=== PATIENT | female | born 1950 | race African-American/Black ===

== ENCOUNTER 2018-04-05 18:22 | Inpatient (IN) ==
[2018-04-05] MEDS ORDERED: ONDANSETRON 4 MG/2 ML VIAL IV ONE (19:47)
[2018-04-05] MEDS ORDERED: MORPHINE 4 MG/1 ML VIAL IV STA (19:47)
[2018-04-05] MEDS ORDERED: SODIUM CHLORIDE 0.9% 1,000 ML IV STA (19:47)
[2018-04-05] MEDS ORDERED: ONDANSETRON 4 MG/2 ML VIAL ONE (20:02)
[2018-04-05] MEDS ORDERED: MORPHINE 4 MG/1 ML VIAL ONE (20:02)
[2018-04-05 20:03] LABS: Basophils % 0.2 % (0.0-0.8); Eosinophils # 0.2 10*3/uL (0.0-0.87); Eosinophils % 0.9 % (0.00-10.9); Immature Granulocytes % 0.8 %; Immature Granulocytes Absolute 0.15 #; Lymphocytes # 3.4 10*3/uL (1.4-4.0); Lymphocytes % 18.7 % (21.3-54.2); Mean Corpuscular HGB Conc 32.7 GM/DL (32-36); Mean Corpuscular Hemoglobin 29 PG (27-34); Mean Platelet Volume 11.2 FL (9.6-12.0); Monocytes # 1.7 10*3/uL (0.11-0.8); Monocytes % 9.7 % (1.7-12.7); NRBC # 0.03 10*3/uL; Neutrophils # 12.5 10*3/uL (1.4-7.4); Neutrophils % 69.7 % (38.7-73.9); Platelet Count 415 T/CUMM (130-400); Red Blood Count 1.84 MC/CUMM (3.8-5.5); Red Cell Distribution Width 16.7 % (9.3-17.3); White Blood Count 17.9 T/CUMM (4-12)
[2018-04-05 20:11] LABS: Hemoglobin 5.3 GM/DL (12.0-16.0)
[2018-04-05 20:12] LABS: Hematocrit 16.2 VOL% (35.7-47.0)
[2018-04-05 20:20] LABS: Albumin 3.3 G/DL (3.4-5.0); Bilirubin,Total 0.5 MG/DL (0.2-1.0); Calcium 7.7 MG/DL (8.5-10.1); Osmolality,Calculated 307.4 MOS/KG (273-304); Potassium 4.3 MMOL/L (3.5-5.1); Total Protein 7.2 G/DL (6.4-8.3)
[2018-04-05] MEDS ORDERED: cefTRIAXone 1,000 MG in SODIUM CHLORIDE 0.9% 100 ML IV STA (20:25)
[2018-04-05] MEDS ORDERED: cefTRIAXone 1,000 MG VIAL ONE (20:42)
[2018-04-05 20:54] LABS: Apearance,Urine CLEAR (Clear); Bilirubin,Urine Negative (Negative); Blood, Urine Negative (Negative); Glucose,Urine (UA) Negative (Negative); Ketones,Urine Negative (Negative); Mucus,Urine Occasional /LPF (Occasional); Nitrite,Urine Negative (Negative); Protein,Urine Negative; RBC,Urine <1 /HPF (0-4); Squamous Epithelial Cell,Urine Occasional /HPF (0-10); Urine Color Straw (Yellow); Urine Specific Gravity 1.006 (1.001-1.035); Urine Urobilinogen < 2.0 EU/DL (0.2-1.0)
[2018-04-05] MEDS ORDERED: SODIUM CHLORIDE 0.9% 1,000 ML IV PRN (22:00)
[2018-04-05] MEDS ORDERED: ONDANSETRON 4 MG/2 ML VIAL IV PRN (22:08)
[2018-04-05] MEDS ORDERED: MORPHINE 4 MG/1 ML VIAL IV PRN (22:08)
[2018-04-05] MEDS ORDERED: PROMETHAZINE 25 MG TABLET PO PRN (22:40)
[2018-04-06] MEDS ORDERED: CYPROHEPTADINE 4 MG TABLET PO SCH (09:00)
[2018-04-06] MEDS: MULTIVITAMIN (CENTRUM) TABLET PO SCH (09:38)
[2018-04-06] MEDS: POTASSIUM CHLORIDE 8 MEQ CAPSULE PO SCH (09:38)
[2018-04-06] MEDS: FOLIC ACID 0.4 MG TABLET PO SCH (09:38)
[2018-04-06] MEDS: amLODIPine 5 MG TABLET PO SCH (09:39)
[2018-04-06] MEDS: THIAMINE 100 MG TABLET PO SCH (09:39)
[2018-04-06] MEDS: CYANOCOBALAMIN 500 MCG TABLET PO SCH (09:39)
[2018-04-06] MEDS: NEBIVOLOL 10 MG TABLET PO SCH (09:39)
[2018-04-06] MEDS: hydrALAZINE 10 MG TABLET PO SCH ×3 (09:39→22:01)
[2018-04-06] MEDS: FERROUS SULFATE 325 MG TABLET PO SCH (09:39)
[2018-04-06 13:54] LABS: Basophils % 0.3 % (0.0-0.8); Eosinophils # 0.2 10*3/uL (0.0-0.87); Eosinophils % 1.1 % (0.00-10.9); Hematocrit 28.4 VOL% (35.7-47.0); Hemoglobin 9.4 GM/DL (12.0-16.0); Immature Granulocytes % 0.6 %; Immature Granulocytes Absolute 0.09 #; Lymphocytes # 1.5 10*3/uL (1.4-4.0); Lymphocytes % 10.1 % (21.3-54.2); Mean Corpuscular HGB Conc 33.1 GM/DL (32-36); Mean Corpuscular Hemoglobin 29 PG (27-34); Mean Corpuscular Volume 87.9 FL (87-102); Mean Platelet Volume 11.7 FL (9.6-12.0); Monocytes # 1.7 10*3/uL (0.11-0.8); NRBC # 0.05 10*3/uL; Neutrophils # 11.7 10*3/uL (1.4-7.4); Neutrophils % 76.9 % (38.7-73.9); Platelet Count 319 T/CUMM (130-400); Red Blood Count 3.23 MC/CUMM (3.8-5.5); Red Cell Distribution Width 15.5 % (9.3-17.3); White Blood Count 15.2 T/CUMM (4-12)
[2018-04-06 14:12] LABS: Calcium 7.6 MG/DL (8.5-10.1); Potassium 4.2 MMOL/L (3.5-5.1)
[2018-04-06 15:07] LABS: Sedimentation Rate-Westergren 98 MM/HR (0-30)
[2018-04-06 17:30] LABS: % Iron Saturation 114.8 % (18-50); Ferritin 8614.7 ng/ml (8-252); Folate > 24.0 NG/ML (5.4-24.0); Vitamin B12 > 2000 PG/ML (211-911)
[2018-04-06] MEDS: MEPERIDINE 50 MG TABLET PO PRN (17:52)
[2018-04-06] MEDS: cefTRIAXone 1,000 MG in SYRINGE 1 EACH IV SCH (21:54)
[2018-04-07] MEDS: CYANOCOBALAMIN 500 MCG TABLET PO SCH (09:04)
[2018-04-07] MEDS: THIAMINE 100 MG TABLET PO SCH (09:05)
[2018-04-07] MEDS: amLODIPine 5 MG TABLET PO SCH (09:05)
[2018-04-07] MEDS: FOLIC ACID 0.4 MG TABLET PO SCH (09:05)
[2018-04-07] MEDS: FERROUS SULFATE 325 MG TABLET PO SCH (09:05)
[2018-04-07] MEDS: hydrALAZINE 10 MG TABLET PO SCH ×3 (09:05→21:42)
[2018-04-07] MEDS: MULTIVITAMIN (CENTRUM) TABLET PO SCH (09:05)
[2018-04-07] MEDS: NEBIVOLOL 10 MG TABLET PO SCH (09:05)
[2018-04-07] MEDS: POTASSIUM CHLORIDE 8 MEQ CAPSULE PO SCH (09:05)
[2018-04-07 11:28] LABS: Basophils % 0.3 % (0.0-0.8); Eosinophils # 0.2 10*3/uL (0.0-0.87); Hemoglobin 9.3 GM/DL (12.0-16.0); Immature Granulocytes % 0.9 %; Immature Granulocytes Absolute 0.13 #; Lymphocytes # 1.6 10*3/uL (1.4-4.0); Mean Corpuscular HGB Conc 33.2 GM/DL (32-36); Mean Corpuscular Hemoglobin 29 PG (27-34); Mean Corpuscular Volume 88.6 FL (87-102); Mean Platelet Volume 11.4 FL (9.6-12.0); Monocytes # 1.6 10*3/uL (0.11-0.8); NRBC # 0.04 10*3/uL; Neutrophils # 11.3 10*3/uL (1.4-7.4); Neutrophils % 75.8 % (38.7-73.9); Platelet Count 357 T/CUMM (130-400); Red Blood Count 3.16 MC/CUMM (3.8-5.5); Red Cell Distribution Width 15.9 % (9.3-17.3); White Blood Count 14.9 T/CUMM (4-12)
[2018-04-07 11:49] LABS: Potassium 4.1 MMOL/L (3.5-5.1)
[2018-04-07] MEDS: cefTRIAXone 1,000 MG in SYRINGE 1 EACH IV SCH (21:41)
[2018-04-07] MEDS: SODIUM BICARBONATE 650 MG TABLET PO SCH (21:42)
[2018-04-08 06:29] LABS: Osmolality,Calculated 310.5 MOS/KG (273-304); Potassium 3.7 MMOL/L (3.5-5.1)
[2018-04-08] MEDS: CYANOCOBALAMIN 500 MCG TABLET PO SCH (09:07)
[2018-04-08] MEDS: NEBIVOLOL 10 MG TABLET PO SCH (09:07)
[2018-04-08] MEDS: FOLIC ACID 0.4 MG TABLET PO SCH (09:07)
[2018-04-08] MEDS: SODIUM BICARBONATE 650 MG TABLET PO SCH ×2 (09:07→21:33)
[2018-04-08] MEDS: MULTIVITAMIN (CENTRUM) TABLET PO SCH (09:08)
[2018-04-08] MEDS: amLODIPine 5 MG TABLET PO SCH (09:08)
[2018-04-08] MEDS: hydrALAZINE 10 MG TABLET PO SCH ×3 (09:08→21:33)
[2018-04-08] MEDS: THIAMINE 100 MG TABLET PO SCH (09:08)
[2018-04-08] MEDS: MEPERIDINE 50 MG TABLET PO PRN (09:14)
[2018-04-08] MEDS: FERROUS SULFATE 325 MG TABLET PO SCH (09:14)
[2018-04-08] MEDS: cefTRIAXone 1,000 MG in SYRINGE 1 EACH IV SCH (21:32)
[2018-04-09 05:25] LABS: Basophils # 0.1 10*3/uL (0.0-0.2); Basophils % 0.4 % (0.0-0.8); Eosinophils # 0.4 10*3/uL (0.0-0.87); Eosinophils % 2.5 % (0.00-10.9); Hematocrit 27.4 VOL% (35.7-47.0); Hemoglobin 8.8 GM/DL (12.0-16.0); Immature Granulocytes % 0.7 %; Immature Granulocytes Absolute 0.11 #; Lymphocytes # 2.4 10*3/uL (1.4-4.0); Lymphocytes % 14.7 % (21.3-54.2); Mean Corpuscular HGB Conc 32.1 GM/DL (32-36); Mean Corpuscular Hemoglobin 29 PG (27-34); Mean Corpuscular Volume 89.5 FL (87-102); Mean Platelet Volume 12.4 FL (9.6-12.0); Monocytes # 2.5 10*3/uL (0.11-0.8); Monocytes % 14.8 % (1.7-12.7); NRBC # 0.06 10*3/uL; Neutrophils # 11.1 10*3/uL (1.4-7.4); Neutrophils % 66.9 % (38.7-73.9); Platelet Count 313 T/CUMM (130-400); Red Blood Count 3.06 MC/CUMM (3.8-5.5); Red Cell Distribution Width 16.3 % (9.3-17.3); White Blood Count 16.6 T/CUMM (4-12)
[2018-04-09 05:51] LABS: Calcium 7.9 MG/DL (8.5-10.1); Osmolality,Calculated 313.1 MOS/KG (273-304); Potassium 3.7 MMOL/L (3.5-5.1)
[2018-04-09 08:16] LABS: Hemoglobin A1 (Alkaline) 97.9 % (96.5-98.5); Hemoglobin A2 (Alkaline) 2.1 % (1.5-3.5)
[2018-04-09] MEDS: NEBIVOLOL 10 MG TABLET PO SCH (10:02)
[2018-04-09] MEDS: SODIUM BICARBONATE 650 MG TABLET PO SCH ×2 (10:02→21:23)
[2018-04-09] MEDS: amLODIPine 5 MG TABLET PO SCH (10:02)
[2018-04-09] MEDS: CYANOCOBALAMIN 500 MCG TABLET PO SCH (10:02)
[2018-04-09] MEDS: FOLIC ACID 0.4 MG TABLET PO SCH (10:02)
[2018-04-09] MEDS: hydrALAZINE 10 MG TABLET PO SCH ×3 (10:02→21:23)
[2018-04-09] MEDS: FERROUS SULFATE 325 MG TABLET PO SCH (10:03)
[2018-04-09] MEDS: THIAMINE 100 MG TABLET PO SCH (10:03)
[2018-04-09] MEDS: MULTIVITAMIN (CENTRUM) TABLET PO SCH (10:53)
[2018-04-09] MEDS: cefTRIAXone 1,000 MG in SYRINGE 1 EACH IV SCH (21:23)
[2018-04-10 05:52] LABS: Basophils # 0.1 10*3/uL (0.0-0.2); Basophils % 0.4 % (0.0-0.8); Eosinophils # 0.4 10*3/uL (0.0-0.87); Eosinophils % 2.4 % (0.00-10.9); Hematocrit 27.4 VOL% (35.7-47.0); Hemoglobin 8.7 GM/DL (12.0-16.0); Immature Granulocytes % 0.6 %; Lymphocytes # 2.1 10*3/uL (1.4-4.0); Mean Corpuscular HGB Conc 31.8 GM/DL (32-36); Mean Corpuscular Hemoglobin 29 PG (27-34); Mean Corpuscular Volume 89.8 FL (87-102); Mean Platelet Volume 11.7 FL (9.6-12.0); Monocytes # 2.3 10*3/uL (0.11-0.8); Monocytes % 14.2 % (1.7-12.7); NRBC # 0.05 10*3/uL; Neutrophils # 11.1 10*3/uL (1.4-7.4); Neutrophils % 69.4 % (38.7-73.9); Platelet Count 317 T/CUMM (130-400); Red Blood Count 3.05 MC/CUMM (3.8-5.5); Red Cell Distribution Width 16.3 % (9.3-17.3)
[2018-04-10 07:54] LABS: Bilirubin,Total 0.39 MG/DL (0.2-1.0); Calcium 8.3 MG/DL (8.5-10.1); Total Protein 7.2 G/DL (6.4-8.3)
[2018-04-10 07:55] LABS: Albumin 3.1 G/DL (3.4-5.0)
[2018-04-10 07:56] LABS: Osmolality,Calculated 315.7 MOS/KG (273-304); Potassium 3.7 MMOL/L (3.5-5.1)
[2018-04-10] MEDS ORDERED: CALCIUM GLUCONATE 2,000 MG in SODIUM CHLORIDE 0.9% 100 ML IV ONE (09:00)
[2018-04-10] MEDS ORDERED: CALCIUM GLUCONATE 1,000 MG in SODIUM CHLORIDE 0.9% 100 ML IV ONE (09:00)
[2018-04-10] MEDS: CYANOCOBALAMIN 500 MCG TABLET PO SCH (09:48)
[2018-04-10] MEDS: NEBIVOLOL 10 MG TABLET PO SCH (09:49)
[2018-04-10] MEDS: amLODIPine 5 MG TABLET PO SCH (09:49)
[2018-04-10] MEDS: hydrALAZINE 10 MG TABLET PO SCH (09:49)
[2018-04-10] MEDS: THIAMINE 100 MG TABLET PO SCH (09:49)
[2018-04-10] MEDS: FOLIC ACID 0.4 MG TABLET PO SCH (09:49)
[2018-04-10] MEDS: FERROUS SULFATE 325 MG TABLET PO SCH (09:49)
[2018-04-10] MEDS: MULTIVITAMIN (CENTRUM) TABLET PO SCH (09:49)
[2018-04-10] MEDS: SODIUM BICARBONATE 650 MG TABLET PO SCH (09:49)
[2018-04-10] MEDS ORDERED: MAGNESIUM SULF RIDER 2 GM in PREMIX 1 EACH IV ONE (10:00)
[2018-04-10 12:18] VITALS: BP 149/94
[2018-04-10] MEDS ORDERED: HEPARIN LOCK FLUSH 500 UNIT/5 ML SYRINGE IV PRN (14:48)
[2018-04-10] MEDS ORDERED: HEPARIN LOCK FLUSH 500 UNIT/5 ML SYRINGE IV SCH (21:00)
[2018-04-11 14:11] LABS: Parvovirus B19 Interpretation SEE COMMENTS
[2018-04-12 13:11] LABS: Parvovirus B19 By Rapid PCR Negative; Source PLASMA
== END 2018-04-10 15:58 | disposition home or self-care (01) | DRG 683 ==
LOC: N.ED 18:22 → N.EDINP 21:54 → N.2E 22:09
PROVIDERS: ADMIT Internal Medicine; ATTEND Internal Medicine

== ENCOUNTER 2018-05-24 10:47 | Inpatient (IN) ==
[2018-05-24] MEDS ORDERED: SODIUM CHLORIDE 0.9% 1,000 ML IV PRN ×2 (13:05→14:49)
[2018-05-24 14:04] LABS: Apearance,Urine CLOUDY (Clear); Bacteria,Urine Occasional /HPF (Few); Bilirubin,Urine Negative (Negative); Blood, Urine Negative (Negative); Glucose,Urine (UA) Negative (Negative); Ketones,Urine Negative (Negative); Nitrite,Urine Negative (Negative); Protein,Urine Negative; Squamous Epithelial Cell,Urine Occasional /HPF (0-10); Urine Color Straw (Yellow); Urine Specific Gravity 1.006 (1.001-1.035); Urine Urobilinogen < 2.0 EU/DL (0.2-1.0); WBC,Urine <1 /HPF (0-6)
[2018-05-24] MEDS ORDERED: ONDANSETRON 4 MG/2 ML VIAL IV PRN (14:46)
[2018-05-24] MEDS ORDERED: traMADol 50 MG TABLET PO PRN (14:46)
[2018-05-24] MEDS ORDERED: MAGNESIUM HYDROXIDE SUSP 30 ML UDCUP PO PRN (14:46)
[2018-05-24] MEDS ORDERED: BISACODYL 5 MG TABLET PO PRN (14:46)
[2018-05-24] MEDS ORDERED: ACETAMINOPHEN 325 MG TABLET PO PRN ×2 (14:46→14:49)
[2018-05-24] MEDS ORDERED: diphenhydrAMINE CAP 25 MG CAPSULE PO PRN (14:49)
[2018-05-24] MEDS: TORSEMIDE 20 MG TABLET PO SCH (16:01)
[2018-05-24] MEDS: SODIUM BICARBONATE 650 MG TABLET PO SCH (21:25)
[2018-05-25 06:18] LABS: Basophils # 0.1 10*3/uL (0.0-0.2); Basophils % 0.3 % (0.0-0.8); Eosinophils # 0.6 10*3/uL (0.0-0.87); Eosinophils % 2.7 % (0.00-10.9); Hematocrit 21.9 VOL% (35.7-47.0); Hemoglobin 7.3 GM/DL (12.0-16.0); Immature Granulocytes Absolute 0.23 #; Lymphocytes # 3.2 10*3/uL (1.4-4.0); Lymphocytes % 13.6 % (21.3-54.2); Mean Corpuscular HGB Conc 33.3 GM/DL (32-36); Mean Corpuscular Hemoglobin 29 PG (27-34); Mean Corpuscular Volume 86.9 FL (87-102); Mean Platelet Volume 11.5 FL (9.6-12.0); Monocytes # 2.3 10*3/uL (0.11-0.8); Monocytes % 10.1 % (1.7-12.7); NRBC # 0.06 10*3/uL; Neutrophils # 16.7 10*3/uL (1.4-7.4); Neutrophils % 72.3 % (38.7-73.9); Platelet Count 388 T/CUMM (130-400); Red Blood Count 2.52 MC/CUMM (3.8-5.5); White Blood Count 23.1 T/CUMM (4-12)
[2018-05-25] MEDS: NEBIVOLOL 10 MG TABLET PO SCH (09:04)
[2018-05-25] MEDS: FOLIC ACID 0.4 MG TABLET PO SCH (09:04)
[2018-05-25] MEDS: ASPIRIN CHEW 81 MG TABLET PO SCH (09:04)
[2018-05-25] MEDS: amLODIPine 5 MG TABLET PO SCH (09:04)
[2018-05-25] MEDS: SODIUM BICARBONATE 650 MG TABLET PO SCH ×2 (09:04→20:27)
[2018-05-25] MEDS: THIAMINE 100 MG TABLET PO SCH (09:04)
[2018-05-25] MEDS: TORSEMIDE 20 MG TABLET PO SCH (09:04)
[2018-05-25] MEDS: PANTOPRAZOLE 40 MG TABLET PO SCH (09:05)
[2018-05-26] MEDS: NEBIVOLOL 10 MG TABLET PO SCH (08:25)
[2018-05-26] MEDS: SODIUM BICARBONATE 650 MG TABLET PO SCH (08:25)
[2018-05-26] MEDS: ASPIRIN CHEW 81 MG TABLET PO SCH (08:25)
[2018-05-26] MEDS: TORSEMIDE 20 MG TABLET PO SCH (08:25)
[2018-05-26] MEDS: THIAMINE 100 MG TABLET PO SCH (08:26)
[2018-05-26] MEDS: PANTOPRAZOLE 40 MG TABLET PO SCH (08:26)
[2018-05-26] MEDS: FOLIC ACID 0.4 MG TABLET PO SCH (08:26)
[2018-05-26] MEDS: amLODIPine 5 MG TABLET PO SCH (08:26)
[2018-05-26 16:29] VITALS: BP 156/69
== END 2018-05-26 16:29 | disposition home or self-care (01) | DRG 683 ==
LOC: N.5E 11:58
PROVIDERS: ADMIT Internal Medicine Nephrology; ATTEND Internal Medicine Nephrology

== ENCOUNTER 2018-07-18 08:53 | Inpatient (IN) ==
[2018-07-18 11:42] LABS: Apearance,Urine CLEAR (Clear); Bilirubin,Urine Negative (Negative); Blood, Urine Negative (Negative); Glucose,Urine (UA) Negative (Negative); Ketones,Urine Negative (Negative); Nitrite,Urine Negative (Negative); Protein,Urine 30 MG/DL; RBC,Urine <1 /HPF (0-4); Squamous Epithelial Cell,Urine Occasional /HPF (0-10); Urine Color Straw (Yellow); Urine Specific Gravity 1.006 (1.001-1.035); Urine Urobilinogen < 2.0 EU/DL (0.2-1.0); WBC,Urine <1 /HPF (0-6)
[2018-07-18 12:01] LABS: Basophils % 0.1 % (0.0-0.8); Eosinophils # 0.2 10*3/uL (0.0-0.87); Eosinophils % 0.7 % (0.00-10.9); Immature Granulocytes % 1.7 %; Immature Granulocytes Absolute 0.46 #; Lymphocytes # 1.1 10*3/uL (1.4-4.0); Lymphocytes % 4.1 % (21.3-54.2); Mean Corpuscular HGB Conc 33.1 GM/DL (32-36); Mean Corpuscular Hemoglobin 30 PG (27-34); Mean Corpuscular Volume 89.2 FL (87-102); Mean Platelet Volume 11.6 FL (9.6-12.0); Monocytes # 2.6 10*3/uL (0.11-0.8); Monocytes % 9.7 % (1.7-12.7); Neutrophils # 22.4 10*3/uL (1.4-7.4); Neutrophils % 83.7 % (38.7-73.9); Platelet Count 367 T/CUMM (130-400); Red Blood Count 1.76 MC/CUMM (3.8-5.5); Red Cell Distribution Width 17.2 % (9.3-17.3); White Blood Count 26.7 T/CUMM (4-12)
[2018-07-18 12:08] LABS: Hematocrit 15.7 VOL% (35.7-47.0); Hemoglobin 5.2 GM/DL (12.0-16.0)
[2018-07-18 12:18] LABS: Albumin 3.4 G/DL (3.4-5.0); Bilirubin,Total 0.9 MG/DL (0.2-1.0); Calcium 8.4 MG/DL (8.5-10.1); Osmolality,Calculated 293.5 MOS/KG (273-304); Potassium 3.4 MMOL/L (3.5-5.1); Total Protein 7.3 G/DL (6.4-8.3)
[2018-07-18 12:21] LABS: Band Neutrophils 2 % (0-10); Lymphocytes 4 % (20-55); Platelet Estimate Normal; Segmented Neutrophils 86 % (50-85); Total Cells Counted 100
[2018-07-18 12:22] LABS: Anisocytosis 1+; Target Cells Few
[2018-07-18] MEDS ORDERED: guaiFENesin/DM ER 600-30 MG TABLET PO PRN (13:43)
[2018-07-18] MEDS ORDERED: ONDANSETRON 4 MG/2 ML VIAL IV PRN (13:43)
[2018-07-18] MEDS ORDERED: SODIUM CHLORIDE 0.9% 1,000 ML IV PRN (13:43)
[2018-07-18] MEDS ORDERED: diphenhydrAMINE 50 MG/1 ML VIAL IV PRN (13:48)
[2018-07-18] MEDS ORDERED: FUROSEMIDE 20 MG/2 ML VIAL IV PRN (13:48)
[2018-07-18] MEDS: LEVOFLOXACIN INJ 500 MG in PREMIX 1 EACH IV SCH (16:29)
[2018-07-18] MEDS: hydrALAZINE 10 MG TABLET PO SCH ×2 (16:29→20:25)
[2018-07-18] MEDS: OSELTAMIVIR 30 MG CAPSULE PO SCH (16:29)
[2018-07-18] MEDS: ACETAMINOPHEN 325 MG TABLET PO PRN (17:42)
[2018-07-18] MEDS: SODIUM BICARBONATE 650 MG TABLET PO SCH (20:25)
[2018-07-18] MEDS: IBUPROFEN 400 MG TABLET PO PRN (20:25)
[2018-07-19] MEDS ORDERED: guaiFENesin/CODEINE 5 ML LIQUID PO PRN (02:22)
[2018-07-19] MEDS: ALBUTEROL/IPRATROPIUM 3 ML NEB RESP TX SCH ×6 (03:03→22:47)
[2018-07-19 05:57] LABS: Basophils # 0.1 10*3/uL (0.0-0.2); Basophils % 0.3 % (0.0-0.8); Eosinophils # 0.1 10*3/uL (0.0-0.87); Eosinophils % 0.4 % (0.00-10.9); Hematocrit 22.1 VOL% (35.7-47.0); Immature Granulocytes % 1.6 %; Lymphocytes # 1.2 10*3/uL (1.4-4.0); Lymphocytes % 6.5 % (21.3-54.2); Mean Corpuscular Hemoglobin 30 PG (27-34); Mean Corpuscular Volume 91.7 FL (87-102); Mean Platelet Volume 12.5 FL (9.6-12.0); Monocytes # 2.6 10*3/uL (0.11-0.8); Monocytes % 13.8 % (1.7-12.7); NRBC # 0.09 10*3/uL; Neutrophils # 14.3 10*3/uL (1.4-7.4); Neutrophils % 77.4 % (38.7-73.9); Red Cell Distribution Width 15.9 % (9.3-17.3)
[2018-07-19 06:05] LABS: Red Blood Count 2.41 MC/CUMM (3.8-5.5); White Blood Count 18.5 T/CUMM (4-12)
[2018-07-19 06:06] LABS: Hemoglobin 7.3 GM/DL (12.0-16.0); Platelet Count 288 T/CUMM (130-400)
[2018-07-19 06:25] LABS: Albumin 3.2 G/DL (3.4-5.0); Bilirubin,Total 1.1 MG/DL (0.2-1.0); Calcium 8.1 MG/DL (8.5-10.1); Osmolality,Calculated 296.3 MOS/KG (273-304); Potassium 3.2 MMOL/L (3.5-5.1); Thyroid Stimulating Hormone 1.21 uIU/ml (0.358-3.74); Total Protein 6.9 G/DL (6.4-8.3)
[2018-07-19] MEDS ORDERED: MAGNESIUM SULF RIDER 4 GM in PREMIX 1 EACH IV PRN (08:32)
[2018-07-19] MEDS ORDERED: MAGNESIUM SULF RIDER 2 GM in PREMIX 1 EACH IV PRN (08:32)
[2018-07-19] MEDS: CYANOCOBALAMIN 500 MCG TABLET PO SCH (08:47)
[2018-07-19] MEDS: OSELTAMIVIR 30 MG CAPSULE PO SCH (08:47)
[2018-07-19] MEDS: ASPIRIN EC 81 MG TABLET PO SCH (08:47)
[2018-07-19] MEDS: FERROUS SULFATE 325 MG TABLET PO SCH (08:47)
[2018-07-19] MEDS: FOLIC ACID 0.4 MG TABLET PO SCH (08:47)
[2018-07-19] MEDS: THIAMINE 100 MG TABLET PO SCH (08:47)
[2018-07-19] MEDS: amLODIPine 5 MG TABLET PO SCH (08:47)
[2018-07-19] MEDS: NEBIVOLOL 10 MG TABLET PO SCH (08:47)
[2018-07-19] MEDS: hydrALAZINE 10 MG TABLET PO SCH ×3 (08:47→20:43)
[2018-07-19] MEDS: PANTOPRAZOLE 40 MG TABLET PO SCH (08:47)
[2018-07-19] MEDS: SODIUM BICARBONATE 650 MG TABLET PO SCH ×2 (08:48→20:43)
[2018-07-19] MEDS: IBUPROFEN 400 MG TABLET PO PRN (16:45)
[2018-07-20] MEDS: ALBUTEROL/IPRATROPIUM 3 ML NEB RESP TX SCH ×6 (02:34→22:51)
[2018-07-20] MEDS: POTASSIUM CHLORIDE 20 MEQ TABLET PO PRN ×4 (05:40→12:23)
[2018-07-20 06:16] LABS: Basophils # 0.1 10*3/uL (0.0-0.2); Basophils % 0.2 % (0.0-0.8); Hematocrit 21.5 VOL% (35.7-47.0); Immature Granulocytes Absolute 0.24 #; Lymphocytes # 1.2 10*3/uL (1.4-4.0); Lymphocytes % 4.8 % (21.3-54.2); Mean Corpuscular HGB Conc 32.6 GM/DL (32-36); Mean Corpuscular Hemoglobin 30 PG (27-34); Mean Corpuscular Volume 91.5 FL (87-102); Mean Platelet Volume 12.4 FL (9.6-12.0); Monocytes # 2.5 10*3/uL (0.11-0.8); Monocytes % 10.1 % (1.7-12.7); Neutrophils # 20.8 10*3/uL (1.4-7.4); Neutrophils % 83.9 % (38.7-73.9); Platelet Count 232 T/CUMM (130-400); Red Blood Count 2.35 MC/CUMM (3.8-5.5); Red Cell Distribution Width 16.8 % (9.3-17.3); White Blood Count 24.8 T/CUMM (4-12)
[2018-07-20 06:36] LABS: Albumin 2.8 G/DL (3.4-5.0); Bilirubin,Total 0.8 MG/DL (0.2-1.0); Calcium 6.9 MG/DL (8.5-10.1); Potassium 2.9 MMOL/L (3.5-5.1); Total Protein 6.2 G/DL (6.4-8.3)
[2018-07-20 07:32] LABS: Band Neutrophils 1 % (0-10); Hypochromasia 1+; Lymphocytes 4 % (20-55); Ovalocytes Slight; Platelet Estimate Adequate; Segmented Neutrophils 86 % (50-85); Target Cells Few; Total Cells Counted 100
[2018-07-20] MEDS: FOLIC ACID 0.4 MG TABLET PO SCH (08:04)
[2018-07-20] MEDS: OSELTAMIVIR 30 MG CAPSULE PO SCH (08:05)
[2018-07-20] MEDS: NEBIVOLOL 10 MG TABLET PO SCH (08:05)
[2018-07-20] MEDS: TORSEMIDE 20 MG TABLET PO SCH (08:05)
[2018-07-20] MEDS: THIAMINE 100 MG TABLET PO SCH (08:05)
[2018-07-20] MEDS: amLODIPine 5 MG TABLET PO SCH (08:05)
[2018-07-20] MEDS: PANTOPRAZOLE 40 MG TABLET PO SCH (08:05)
[2018-07-20] MEDS: FERROUS SULFATE 325 MG TABLET PO SCH (08:05)
[2018-07-20] MEDS: CYANOCOBALAMIN 500 MCG TABLET PO SCH (08:05)
[2018-07-20] MEDS: hydrALAZINE 10 MG TABLET PO SCH ×3 (08:05→21:21)
[2018-07-20] MEDS: ASPIRIN EC 81 MG TABLET PO SCH (08:05)
[2018-07-20] MEDS: SODIUM BICARBONATE 650 MG TABLET PO SCH ×2 (08:05→21:22)
[2018-07-20] MEDS: LEVOFLOXACIN INJ 500 MG in PREMIX 1 EACH IV SCH (15:57)
[2018-07-20] MEDS: ACETAMINOPHEN 325 MG TABLET PO PRN (21:21)
[2018-07-21] MEDS: ALBUTEROL/IPRATROPIUM 3 ML NEB RESP TX SCH ×6 (02:47→23:28)
[2018-07-21 06:07] LABS: Basophils % 0.2 % (0.0-0.8); Hematocrit 20.5 VOL% (35.7-47.0); Hemoglobin 6.8 GM/DL (12.0-16.0); Immature Granulocytes % 1.2 %; Immature Granulocytes Absolute 0.28 #; Lymphocytes # 2.1 10*3/uL (1.4-4.0); Mean Corpuscular HGB Conc 33.2 GM/DL (32-36); Mean Corpuscular Hemoglobin 31 PG (27-34); Mean Corpuscular Volume 92.3 FL (87-102); Mean Platelet Volume 11.4 FL (9.6-12.0); Monocytes % 8.7 % (1.7-12.7); NRBC # 0.14 10*3/uL; Neutrophils # 18.9 10*3/uL (1.4-7.4); Neutrophils % 80.9 % (38.7-73.9); Platelet Count 215 T/CUMM (130-400); Red Blood Count 2.22 MC/CUMM (3.8-5.5); Red Cell Distribution Width 17.3 % (9.3-17.3); White Blood Count 23.3 T/CUMM (4-12)
[2018-07-21 06:32] LABS: Hypochromasia 1+
[2018-07-21 06:33] LABS: Ovalocytes Slight; Platelet Estimate Adequate
[2018-07-21] MEDS: FERROUS SULFATE 325 MG TABLET PO SCH (08:54)
[2018-07-21] MEDS: NEBIVOLOL 10 MG TABLET PO SCH (08:54)
[2018-07-21] MEDS: PANTOPRAZOLE 40 MG TABLET PO SCH (08:54)
[2018-07-21] MEDS: BISACODYL 5 MG TABLET PO PRN ×2 (08:54→20:28)
[2018-07-21] MEDS: THIAMINE 100 MG TABLET PO SCH (08:54)
[2018-07-21] MEDS: FOLIC ACID 0.4 MG TABLET PO SCH (08:54)
[2018-07-21] MEDS: amLODIPine 5 MG TABLET PO SCH (08:54)
[2018-07-21] MEDS: SODIUM BICARBONATE 650 MG TABLET PO SCH ×2 (08:54→20:28)
[2018-07-21] MEDS: TORSEMIDE 20 MG TABLET PO SCH (08:55)
[2018-07-21] MEDS: OSELTAMIVIR 30 MG CAPSULE PO SCH (08:55)
[2018-07-21] MEDS: CYANOCOBALAMIN 500 MCG TABLET PO SCH (08:55)
[2018-07-21] MEDS: ASPIRIN EC 81 MG TABLET PO SCH (08:55)
[2018-07-21] MEDS: hydrALAZINE 10 MG TABLET PO SCH ×3 (08:55→20:28)
[2018-07-21] MEDS ORDERED: SODIUM CHLORIDE 0.9% 1,000 ML IV PRN (10:27)
[2018-07-21] MEDS ORDERED: FUROSEMIDE 40 MG/4 ML VIAL IV ONE (10:28)
[2018-07-21 19:53] LABS: Hematocrit 24.3 VOL% (35.7-47.0); Hemoglobin 8.1 GM/DL (12.0-16.0)
[2018-07-21] MEDS: guaiFENesin/DM ER 600-30 MG TABLET PO SCH (20:28)
[2018-07-22] MEDS: ALBUTEROL/IPRATROPIUM 3 ML NEB RESP TX SCH ×6 (03:56→23:34)
[2018-07-22 05:03] LABS: Basophils % 0.2 % (0.0-0.8); Eosinophils # 0.2 10*3/uL (0.0-0.87); Eosinophils % 1.1 % (0.00-10.9); Hematocrit 24.5 VOL% (35.7-47.0); Immature Granulocytes % 1.4 %; Immature Granulocytes Absolute 0.27 #; Lymphocytes # 2.5 10*3/uL (1.4-4.0); Lymphocytes % 12.7 % (21.3-54.2); Mean Corpuscular HGB Conc 32.7 GM/DL (32-36); Mean Corpuscular Hemoglobin 30 PG (27-34); Mean Corpuscular Volume 91.1 FL (87-102); Mean Platelet Volume 12.4 FL (9.6-12.0); Monocytes # 1.8 10*3/uL (0.11-0.8); Monocytes % 8.8 % (1.7-12.7); NRBC # 0.16 10*3/uL; Neutrophils # 15.1 10*3/uL (1.4-7.4); Neutrophils % 75.8 % (38.7-73.9); Platelet Count 205 T/CUMM (130-400); Red Blood Count 2.69 MC/CUMM (3.8-5.5); Red Cell Distribution Width 17.1 % (9.3-17.3); White Blood Count 19.9 T/CUMM (4-12)
[2018-07-22 05:09] LABS: Albumin 2.8 G/DL (3.4-5.0); Bilirubin,Total 1.3 MG/DL (0.2-1.0); Calcium 7.8 MG/DL (8.5-10.1); Osmolality,Calculated 292.8 MOS/KG (273-304); Potassium 4.1 MMOL/L (3.5-5.1); Total Protein 6.5 G/DL (6.4-8.3)
[2018-07-22] MEDS: OSELTAMIVIR 30 MG CAPSULE PO SCH (09:59)
[2018-07-22] MEDS: guaiFENesin/DM ER 600-30 MG TABLET PO SCH ×2 (09:59→21:33)
[2018-07-22] MEDS: SODIUM BICARBONATE 650 MG TABLET PO SCH ×2 (09:59→21:33)
[2018-07-22] MEDS: NEBIVOLOL 10 MG TABLET PO SCH (09:59)
[2018-07-22] MEDS: ASPIRIN EC 81 MG TABLET PO SCH (09:59)
[2018-07-22] MEDS: CYANOCOBALAMIN 500 MCG TABLET PO SCH (09:59)
[2018-07-22] MEDS: TORSEMIDE 20 MG TABLET PO SCH (10:00)
[2018-07-22] MEDS: FOLIC ACID 0.4 MG TABLET PO SCH (10:00)
[2018-07-22] MEDS: PANTOPRAZOLE 40 MG TABLET PO SCH (10:00)
[2018-07-22] MEDS: FERROUS SULFATE 325 MG TABLET PO SCH (10:00)
[2018-07-22] MEDS: THIAMINE 100 MG TABLET PO SCH (10:00)
[2018-07-22] MEDS: hydrALAZINE 10 MG TABLET PO SCH ×3 (10:00→21:33)
[2018-07-22] MEDS: amLODIPine 5 MG TABLET PO SCH (10:00)
[2018-07-22] MEDS: LEVOFLOXACIN INJ 500 MG in PREMIX 1 EACH IV SCH (15:39)
[2018-07-23] MEDS: ALBUTEROL/IPRATROPIUM 3 ML NEB RESP TX SCH ×5 (02:31→19:59)
[2018-07-23 06:15] LABS: Basophils # 0.1 10*3/uL (0.0-0.2); Basophils % 0.3 % (0.0-0.8); Eosinophils # 0.4 10*3/uL (0.0-0.87); Eosinophils % 2.3 % (0.00-10.9); Hematocrit 24.8 VOL% (35.7-47.0); Hemoglobin 7.8 GM/DL (12.0-16.0); Immature Granulocytes % 1.1 %; Lymphocytes # 2.1 10*3/uL (1.4-4.0); Mean Corpuscular HGB Conc 31.5 GM/DL (32-36); Mean Corpuscular Hemoglobin 29 PG (27-34); Mean Corpuscular Volume 93.6 FL (87-102); Mean Platelet Volume 12.7 FL (9.6-12.0); Monocytes # 1.5 10*3/uL (0.11-0.8); Monocytes % 8.5 % (1.7-12.7); NRBC # 0.14 10*3/uL; Neutrophils # 13.4 10*3/uL (1.4-7.4); Neutrophils % 75.8 % (38.7-73.9); Platelet Count 174 T/CUMM (130-400); Red Blood Count 2.65 MC/CUMM (3.8-5.5); Red Cell Distribution Width 17.4 % (9.3-17.3); White Blood Count 17.7 T/CUMM (4-12)
[2018-07-23 06:37] LABS: Calcium 8.1 MG/DL (8.5-10.1); Osmolality,Calculated 298.4 MOS/KG (273-304); Potassium 3.9 MMOL/L (3.5-5.1)
[2018-07-23 06:40] LABS: Hypochromasia 1+; Ovalocytes Slight; Platelet Estimate Adequate
[2018-07-23 07:30] LABS: HIV Antigen/Antibody Result Nonreactive (Nonreactive); Hepatitis A Ab IgM Quant 0.21 Index; Hepatitis A Ab IgM Result Negative (Negative); Hepatitis B Core IgM Quant 0.19 Index; Hepatitis B Core IgM Result Negative (Negative); Hepatitis B Surface Ag Quant < 0.10 Index; Hepatitis B Surface Ag Result Negative (Negative); Hepatitis C Virus Ab Quant 0.06 Index; Hepatitis C Virus Ab Result Negative (Negative)
[2018-07-23] MEDS: guaiFENesin/DM ER 600-30 MG TABLET PO SCH ×2 (08:12→22:04)
[2018-07-23] MEDS: NEBIVOLOL 10 MG TABLET PO SCH (08:12)
[2018-07-23] MEDS: FOLIC ACID 0.4 MG TABLET PO SCH (08:12)
[2018-07-23] MEDS: CYANOCOBALAMIN 500 MCG TABLET PO SCH (08:12)
[2018-07-23] MEDS: SODIUM BICARBONATE 650 MG TABLET PO SCH ×2 (08:12→22:05)
[2018-07-23] MEDS: TORSEMIDE 20 MG TABLET PO SCH (08:12)
[2018-07-23] MEDS: hydrALAZINE 10 MG TABLET PO SCH ×3 (08:13→22:05)
[2018-07-23] MEDS: PANTOPRAZOLE 40 MG TABLET PO SCH (08:13)
[2018-07-23] MEDS: FERROUS SULFATE 325 MG TABLET PO SCH (08:13)
[2018-07-23] MEDS: ASPIRIN EC 81 MG TABLET PO SCH (08:13)
[2018-07-23] MEDS: amLODIPine 5 MG TABLET PO SCH (08:13)
[2018-07-23] MEDS: THIAMINE 100 MG TABLET PO SCH (08:13)
[2018-07-24] MEDS: ALBUTEROL/IPRATROPIUM 3 ML NEB RESP TX SCH ×7 (00:08→23:51)
[2018-07-24 09:09] LABS: Basophils # 0.1 10*3/uL (0.0-0.2); Basophils % 0.3 % (0.0-0.8); Eosinophils # 0.3 10*3/uL (0.0-0.87); Eosinophils % 1.8 % (0.00-10.9); Hematocrit 22.8 VOL% (35.7-47.0); Hemoglobin 7.5 GM/DL (12.0-16.0); Immature Granulocytes % 1.2 %; Immature Granulocytes Absolute 0.19 #; Lymphocytes # 2.4 10*3/uL (1.4-4.0); Lymphocytes % 15.3 % (21.3-54.2); Mean Corpuscular HGB Conc 32.9 GM/DL (32-36); Mean Corpuscular Hemoglobin 30 PG (27-34); Mean Corpuscular Volume 91.2 FL (87-102); Mean Platelet Volume 11.4 FL (9.6-12.0); Monocytes # 1.5 10*3/uL (0.11-0.8); Monocytes % 9.5 % (1.7-12.7); NRBC # 0.09 10*3/uL; Neutrophils # 11.3 10*3/uL (1.4-7.4); Neutrophils % 71.9 % (38.7-73.9); Platelet Count 254 T/CUMM (130-400); Red Cell Distribution Width 17.2 % (9.3-17.3); White Blood Count 15.8 T/CUMM (4-12)
[2018-07-24] MEDS: guaiFENesin/DM ER 600-30 MG TABLET PO SCH ×2 (09:18→23:14)
[2018-07-24] MEDS: hydrALAZINE 10 MG TABLET PO SCH ×3 (09:18→23:14)
[2018-07-24] MEDS: TORSEMIDE 20 MG TABLET PO SCH (09:18)
[2018-07-24] MEDS: FERROUS SULFATE 325 MG TABLET PO SCH (09:18)
[2018-07-24] MEDS: FOLIC ACID 0.4 MG TABLET PO SCH (09:18)
[2018-07-24] MEDS: PANTOPRAZOLE 40 MG TABLET PO SCH (09:18)
[2018-07-24] MEDS: ASPIRIN EC 81 MG TABLET PO SCH (09:18)
[2018-07-24] MEDS: THIAMINE 100 MG TABLET PO SCH (09:19)
[2018-07-24] MEDS: NEBIVOLOL 10 MG TABLET PO SCH (09:19)
[2018-07-24] MEDS: amLODIPine 5 MG TABLET PO SCH (09:19)
[2018-07-24] MEDS: SODIUM BICARBONATE 650 MG TABLET PO SCH ×2 (09:19→23:14)
[2018-07-24] MEDS: CYANOCOBALAMIN 500 MCG TABLET PO SCH (09:19)
[2018-07-24 09:25] LABS: Hypochromasia 1+; Platelet Estimate Adequate
[2018-07-24 09:35] LABS: Albumin 2.9 G/DL (3.4-5.0); Bilirubin,Total 1.4 MG/DL (0.2-1.0); Calcium 8.2 MG/DL (8.5-10.1); Osmolality,Calculated 301.1 MOS/KG (273-304); Potassium 3.5 MMOL/L (3.5-5.1); Total Protein 6.6 G/DL (6.4-8.3)
[2018-07-24] MEDS: LEVOFLOXACIN INJ 500 MG in PREMIX 1 EACH IV SCH (15:03)
[2018-07-25] MEDS: ALBUTEROL/IPRATROPIUM 3 ML NEB RESP TX SCH ×3 (04:15→11:12)
[2018-07-25 06:54] LABS: Basophils % 0.2 % (0.0-0.8); Eosinophils # 0.4 10*3/uL (0.0-0.87); Eosinophils % 2.6 % (0.00-10.9); Hematocrit 24.2 VOL% (35.7-47.0); Hemoglobin 7.9 GM/DL (12.0-16.0); Immature Granulocytes % 1.7 %; Immature Granulocytes Absolute 0.28 #; Lymphocytes # 2.4 10*3/uL (1.4-4.0); Lymphocytes % 14.9 % (21.3-54.2); Mean Corpuscular HGB Conc 32.6 GM/DL (32-36); Mean Corpuscular Hemoglobin 30 PG (27-34); Mean Platelet Volume 11.2 FL (9.6-12.0); Monocytes # 1.6 10*3/uL (0.11-0.8); Monocytes % 10.2 % (1.7-12.7); NRBC # 0.05 10*3/uL; Neutrophils # 11.3 10*3/uL (1.4-7.4); Neutrophils % 70.4 % (38.7-73.9); Platelet Count 289 T/CUMM (130-400); Red Blood Count 2.63 MC/CUMM (3.8-5.5); Red Cell Distribution Width 17.1 % (9.3-17.3)
[2018-07-25 07:17] LABS: Albumin 3.1 G/DL (3.4-5.0); Bilirubin,Total 1.7 MG/DL (0.2-1.0); Calcium 8.6 MG/DL (8.5-10.1); Potassium 3.9 MMOL/L (3.5-5.1); Total Protein 6.7 G/DL (6.4-8.3)
[2018-07-25 07:28] LABS: Risk Ratio 3.18; VLDL CHOLESTEROL 18.2 MG/DL
[2018-07-25] MEDS: CYANOCOBALAMIN 500 MCG TABLET PO SCH (08:25)
[2018-07-25] MEDS: THIAMINE 100 MG TABLET PO SCH (08:25)
[2018-07-25] MEDS: FERROUS SULFATE 325 MG TABLET PO SCH (08:25)
[2018-07-25] MEDS: SODIUM BICARBONATE 650 MG TABLET PO SCH (08:25)
[2018-07-25] MEDS: PANTOPRAZOLE 40 MG TABLET PO SCH (08:25)
[2018-07-25] MEDS: amLODIPine 5 MG TABLET PO SCH (08:25)
[2018-07-25] MEDS: TORSEMIDE 20 MG TABLET PO SCH (08:25)
[2018-07-25] MEDS: NEBIVOLOL 10 MG TABLET PO SCH (08:25)
[2018-07-25] MEDS: ASPIRIN EC 81 MG TABLET PO SCH (08:25)
[2018-07-25] MEDS: FOLIC ACID 0.4 MG TABLET PO SCH (08:25)
[2018-07-25] MEDS: guaiFENesin/DM ER 600-30 MG TABLET PO SCH (08:25)
[2018-07-25] MEDS: hydrALAZINE 10 MG TABLET PO SCH (08:25)
[2018-07-25 11:50] VITALS: BP 137/82
== END 2018-07-25 16:00 | disposition home health service (06) | DRG 811 ==
LOC: N.ED 08:53 → N.EDINP 12:59 → SUATTDRO 13:43 → N.EDINP 13:43 → N.5E 15:11
PROVIDERS: ADMIT Internal Medicine; ATTEND Hospitalist

== ENCOUNTER 2018-11-27 08:22 | Observation (INO) ==
[2018-11-27] MEDS ORDERED: ONDANSETRON 4 MG/2 ML VIAL IV STA (09:42)
[2018-11-27] MEDS ORDERED: SODIUM CHLORIDE 0.9% 500 ML IV STA (09:42)
[2018-11-27 10:20] LABS: Basophils # 0.1 10*3/uL (0.0-0.2); Basophils % 0.3 % (0.0-0.8); Eosinophils # 0.2 10*3/uL (0.0-0.87); Eosinophils % 0.9 % (0.00-10.9); Immature Granulocytes % 1.7 %; Immature Granulocytes Absolute 0.32 #; Lymphocytes # 2.1 10*3/uL (1.4-4.0); Lymphocytes % 11.3 % (21.3-54.2); Mean Corpuscular HGB Conc 32.9 GM/DL (32-36); Mean Corpuscular Volume 88.4 FL (87-102); Mean Platelet Volume 11.4 FL (9.6-12.0); Monocytes % 10.5 % (1.7-12.7); NRBC # 0.44 10*3/uL; Neutrophils % 75.3 % (38.7-73.9); Platelet Count 304 T/CUMM (130-400); Red Blood Count 1.89 MC/CUMM (3.8-5.5); Red Cell Distribution Width 18.3 % (9.3-17.3)
[2018-11-27 10:24] LABS: Hematocrit 16.7 VOL% (35.7-47.0); Hemoglobin 5.5 GM/DL (12.0-16.0)
[2018-11-27 10:28] LABS: Apearance,Urine CLEAR (Clear); Bacteria,Urine Occasional /HPF (Few); Bilirubin,Urine Negative (Negative); Blood, Urine Small mg/dL (Negative); Glucose,Urine (UA) Negative (Negative); Ketones,Urine Negative (Negative); Mucus,Urine Occasional /LPF (Occasional); Nitrite,Urine Negative (Negative); Protein,Urine 100 MG/DL; RBC,Urine <1 /HPF (0-4); Squamous Epithelial Cell,Urine Occasional /HPF (0-10); Urine Color Yellow (Yellow); Urine Specific Gravity 1.008 (1.001-1.035); Urine Urobilinogen < 2.0 EU/DL (0.2-1.0)
[2018-11-27 10:47] LABS: Albumin 3.5 G/DL (3.4-5.0); Bilirubin,Total 1.5 MG/DL (0.2-1.0); Calcium 9.1 MG/DL (8.5-10.1); Osmolality,Calculated 298.3 MOS/KG (273-304); Total Protein 6.9 G/DL (6.4-8.3)
[2018-11-27] MEDS ORDERED: SODIUM CHLORIDE 0.9% 1,000 ML IV SCH (14:00)
[2018-11-27] MEDS ORDERED: HYDROmorphone 2 MG/1 ML VIAL ONE (14:31)
[2018-11-27] MEDS: ONDANSETRON 4 MG/2 ML VIAL IV PRN ×3 (14:35→21:27)
[2018-11-27] MEDS ORDERED: HYDROmorphone 2 MG/1 ML VIAL IV STA (14:35)
[2018-11-27] MEDS: hydrALAZINE 10 MG TABLET PO SCH ×2 (16:27→21:27)
[2018-11-27] MEDS ORDERED: HYDROmorphone 2 MG/1 ML VIAL IV PRN (17:14)
[2018-11-27] MEDS ORDERED: SODIUM CHLORIDE 0.9% 1,000 ML IV PRN (18:29)
[2018-11-27] MEDS: SODIUM BICARBONATE 650 MG TABLET PO SCH (21:27)
[2018-11-28 08:44] LABS: Basophils # 0.1 10*3/uL (0.0-0.2); Basophils % 0.3 % (0.0-0.8); Eosinophils # 0.2 10*3/uL (0.0-0.87); Eosinophils % 0.8 % (0.00-10.9); Hematocrit 22.2 VOL% (35.7-47.0); Hemoglobin 7.4 GM/DL (12.0-16.0); Immature Granulocytes % 1.6 %; Immature Granulocytes Absolute 0.29 #; Lymphocytes # 1.6 10*3/uL (1.4-4.0); Lymphocytes % 8.7 % (21.3-54.2); Mean Corpuscular HGB Conc 33.3 GM/DL (32-36); Mean Corpuscular Volume 90.6 FL (87-102); Mean Platelet Volume 11.5 FL (9.6-12.0); Monocytes % 9.7 % (1.7-12.7); NRBC # 0.45 10*3/uL; Neutrophils % 78.9 % (38.7-73.9); Platelet Count 293 T/CUMM (130-400); Red Blood Count 2.45 MC/CUMM (3.8-5.5); Red Cell Distribution Width 16.7 % (9.3-17.3); White Blood Count 18.3 T/CUMM (4-12)
[2018-11-28] MEDS ORDERED: TORSEMIDE 20 MG TABLET PO SCH (09:00)
[2018-11-28] MEDS ORDERED: amLODIPine 5 MG TABLET PO SCH (09:00)
[2018-11-28] MEDS ORDERED: FOLIC ACID 0.4 MG TABLET PO SCH (09:00)
[2018-11-28] MEDS ORDERED: FERROUS SULFATE 325 MG TABLET PO SCH (09:00)
[2018-11-28] MEDS ORDERED: PANTOPRAZOLE 40 MG TABLET PO SCH (09:00)
[2018-11-28] MEDS ORDERED: MULTIVITAMIN (CENTRUM) TABLET PO SCH (09:00)
[2018-11-28] MEDS ORDERED: CYANOCOBALAMIN 500 MCG TABLET PO SCH (09:00)
[2018-11-28] MEDS ORDERED: NEBIVOLOL 10 MG TABLET PO SCH (09:00)
[2018-11-28] MEDS ORDERED: THIAMINE 100 MG TABLET PO SCH (09:00)
[2018-11-28] MEDS ORDERED: ASPIRIN EC 81 MG TABLET PO SCH (09:00)
[2018-11-28 09:03] LABS: Calcium 8.8 MG/DL (8.5-10.1); Osmolality,Calculated 299.3 MOS/KG (273-304)
[2018-11-28] MEDS: SODIUM BICARBONATE 650 MG TABLET PO SCH (09:27)
[2018-11-28] MEDS: hydrALAZINE 10 MG TABLET PO SCH ×2 (09:27→15:51)
[2018-11-28] MEDS ORDERED: SODIUM CHLORIDE 0.9% 1,000 ML IV PRN (10:01)
[2018-11-28 18:49] VITALS: BP 170/88
[2018-11-28 18:56] LABS: Hematocrit 29.9 VOL% (35.7-47.0)
== END 2018-11-28 19:13 | disposition home or self-care (01) ==
LOC: N.EDINP 08:22 → N.ED 08:22 → N.2E 15:29
PROVIDERS: ADMIT Internal Medicine; ATTEND Internal Medicine

== ENCOUNTER 2018-12-07 09:36 | Inpatient (IN) ==
[2018-12-07 11:28] LABS: Basophils # 0.1 10*3/uL (0.0-0.2); Basophils % 0.4 % (0.0-0.8); Eosinophils # 0.3 10*3/uL (0.0-0.87); Eosinophils % 1.9 % (0.00-10.9); Hematocrit 30.5 VOL% (35.7-47.0); Hemoglobin 9.7 GM/DL (12.0-16.0); Immature Granulocytes % 0.4 %; Immature Granulocytes Absolute 0.06 #; Lymphocytes # 1.7 10*3/uL (1.4-4.0); Lymphocytes % 11.2 % (21.3-54.2); Mean Corpuscular HGB Conc 31.8 GM/DL (32-36); Mean Corpuscular Volume 90.2 FL (87-102); Mean Platelet Volume 12.3 FL (9.6-12.0); Neutrophils % 78.1 % (38.7-73.9); Platelet Count 175 T/CUMM (130-400); Red Blood Count 3.38 MC/CUMM (3.8-5.5); Red Cell Distribution Width 16.8 % (9.3-17.3); White Blood Count 15.5 T/CUMM (4-12)
[2018-12-07 11:47] LABS: Albumin 3.7 G/DL (3.4-5.0); Bilirubin,Total 1.5 MG/DL (0.2-1.0); Calcium 8.9 MG/DL (8.5-10.1); Total Protein 7.2 G/DL (6.4-8.3)
[2018-12-07] MEDS ORDERED: SODIUM CHLORIDE 0.9% 250 ML IV STA (13:20)
[2018-12-07] MEDS ORDERED: LEVOFLOXACIN INJ 250 MG in PREMIX 1 EACH IV STA (13:20)
[2018-12-07 13:21] LABS: Apearance,Urine CLEAR (Clear); Bacteria,Urine Occasional /HPF (Few); Bilirubin,Urine Negative (Negative); Blood, Urine Negative (Negative); Glucose,Urine (UA) Negative (Negative); Ketones,Urine Negative (Negative); Nitrite,Urine Negative (Negative); Protein,Urine 100 MG/DL; RBC,Urine 1 /HPF (0-4); Squamous Epithelial Cell,Urine Occasional /HPF (0-10); Urine Color Yellow (Yellow); Urine Urobilinogen < 2.0 EU/DL (0.2-1.0); WBC,Urine 1 /HPF (0-6)
[2018-12-07] MEDS ORDERED: diphenhydrAMINE CAP 25 MG CAPSULE PO PRN (15:25)
[2018-12-07] MEDS ORDERED: MAGNESIUM SULF RIDER 4 GM in PREMIX 1 EACH IV PRN (15:25)
[2018-12-07] MEDS ORDERED: PROMETHAZINE 25 MG/1 ML VIAL IM PRN (15:25)
[2018-12-07] MEDS ORDERED: MORPHINE 4 MG/1 ML VIAL IV PRN (15:25)
[2018-12-07] MEDS ORDERED: ZALEPLON 5 MG CAPSULE PO PRN (15:25)
[2018-12-07] MEDS ORDERED: MAGNESIUM SULF RIDER 2 GM in PREMIX 1 EACH IV PRN (15:25)
[2018-12-07] MEDS ORDERED: LABETALOL 20 MG/4 ML SYRINGE IV PRN (17:05)
[2018-12-07] MEDS: metroNIDAZOLE INJ 500 MG in PREMIX 1 EACH IV SCH (18:13)
[2018-12-07] MEDS: CIPROFLOXACIN INJ 400 MG in PREMIX 1 EACH IV SCH (21:15)
[2018-12-07] MEDS: hydrALAZINE 10 MG TABLET PO SCH (21:23)
[2018-12-07] MEDS: SODIUM BICARBONATE 650 MG TABLET PO SCH (21:23)
[2018-12-08] MEDS: metroNIDAZOLE INJ 500 MG in PREMIX 1 EACH IV SCH ×4 (00:59→21:26)
[2018-12-08 06:23] LABS: Albumin 3.1 G/DL (3.4-5.0); Bilirubin,Total 1.4 MG/DL (0.2-1.0); Calcium 8.5 MG/DL (8.5-10.1); Osmolality,Calculated 303.7 MOS/KG (273-304); Total Protein 6.1 G/DL (6.4-8.3)
[2018-12-08 06:55] LABS: Basophils # 0.1 10*3/uL (0.0-0.2); Basophils % 0.5 % (0.0-0.8); Eosinophils % 6.7 % (0.00-10.9); Hematocrit 26.4 VOL% (35.7-47.0); Hemoglobin 8.4 GM/DL (12.0-16.0); Immature Granulocytes % 0.4 %; Immature Granulocytes Absolute 0.06 #; Lymphocytes # 2.3 10*3/uL (1.4-4.0); Lymphocytes % 15.1 % (21.3-54.2); Mean Corpuscular HGB Conc 31.8 GM/DL (32-36); Mean Corpuscular Volume 90.7 FL (87-102); Mean Platelet Volume 12.6 FL (9.6-12.0); Monocytes % 10.7 % (1.7-12.7); Neutrophils % 66.6 % (38.7-73.9); Platelet Count 165 T/CUMM (130-400); Red Blood Count 2.91 MC/CUMM (3.8-5.5); Red Cell Distribution Width 16.9 % (9.3-17.3)
[2018-12-08] MEDS: hydrALAZINE 10 MG TABLET PO SCH ×3 (08:56→21:28)
[2018-12-08] MEDS: NEBIVOLOL 10 MG TABLET PO SCH (08:57)
[2018-12-08] MEDS: CYANOCOBALAMIN 500 MCG TABLET PO SCH (08:58)
[2018-12-08] MEDS: FERROUS SULFATE 325 MG TABLET PO SCH (08:59)
[2018-12-08] MEDS: amLODIPine 5 MG TABLET PO SCH (09:00)
[2018-12-08] MEDS: THIAMINE 100 MG TABLET PO SCH (09:00)
[2018-12-08] MEDS: TORSEMIDE 20 MG TABLET PO SCH (09:02)
[2018-12-08] MEDS: PANTOPRAZOLE 40 MG TABLET PO SCH (09:03)
[2018-12-08] MEDS: FOLIC ACID 0.4 MG TABLET PO SCH (09:03)
[2018-12-08] MEDS: MULTIVITAMIN (CENTRUM) TABLET PO SCH (09:03)
[2018-12-08] MEDS: SODIUM BICARBONATE 650 MG TABLET PO SCH ×2 (09:10→21:28)
[2018-12-08 14:13] LABS: Hepatitis B Core IgM Quant 0.15 Index; Hepatitis B Surface Ag Quant < 0.10 Index; Hepatitis B Surface Ag Result Negative (Negative); Hepatitis C Virus Ab Result Negative (Negative)
[2018-12-08] MEDS: ONDANSETRON 4 MG/2 ML VIAL IV PRN ×2 (15:41→23:30)
[2018-12-08] MEDS: ASPIRIN EC 81 MG TABLET PO SCH (16:25)
[2018-12-08] MEDS: CIPROFLOXACIN INJ 400 MG in PREMIX 1 EACH IV SCH (16:39)
[2018-12-08] MEDS: POTASSIUM CHLORIDE 20 MEQ TABLET PO PRN (21:37)
[2018-12-09] MEDS: metroNIDAZOLE INJ 500 MG in PREMIX 1 EACH IV SCH ×2 (02:34→06:37)
[2018-12-09 05:17] LABS: Basophils # 0.1 10*3/uL (0.0-0.2); Basophils % 0.4 % (0.0-0.8); Eosinophils # 0.8 10*3/uL (0.0-0.87); Eosinophils % 5.5 % (0.00-10.9); Hematocrit 24.7 VOL% (35.7-47.0); Hemoglobin 7.8 GM/DL (12.0-16.0); Immature Granulocytes % 0.6 %; Immature Granulocytes Absolute 0.09 #; Lymphocytes # 1.9 10*3/uL (1.4-4.0); Lymphocytes % 13.3 % (21.3-54.2); Mean Corpuscular HGB Conc 31.6 GM/DL (32-36); Mean Corpuscular Volume 91.1 FL (87-102); Mean Platelet Volume 12.3 FL (9.6-12.0); Monocytes % 9.2 % (1.7-12.7); Platelet Count 177 T/CUMM (130-400); Red Blood Count 2.71 MC/CUMM (3.8-5.5); White Blood Count 13.9 T/CUMM (4-12)
[2018-12-09 05:40] LABS: Albumin 2.8 G/DL (3.4-5.0); Bilirubin,Total 1.5 MG/DL (0.2-1.0); Calcium 8.3 MG/DL (8.5-10.1); Osmolality,Calculated 299.8 MOS/KG (273-304)
[2018-12-09] MEDS: CIPROFLOXACIN INJ 400 MG in PREMIX 1 EACH IV SCH (08:59)
[2018-12-09] MEDS: NEBIVOLOL 10 MG TABLET PO SCH (09:01)
[2018-12-09] MEDS: FOLIC ACID 0.4 MG TABLET PO SCH (09:01)
[2018-12-09] MEDS: TORSEMIDE 20 MG TABLET PO SCH (09:02)
[2018-12-09] MEDS: THIAMINE 100 MG TABLET PO SCH (09:02)
[2018-12-09] MEDS: ASPIRIN EC 81 MG TABLET PO SCH (09:03)
[2018-12-09] MEDS: hydrALAZINE 10 MG TABLET PO SCH ×3 (09:03→22:40)
[2018-12-09] MEDS: CYANOCOBALAMIN 500 MCG TABLET PO SCH (09:03)
[2018-12-09] MEDS: FERROUS SULFATE 325 MG TABLET PO SCH (09:04)
[2018-12-09] MEDS: SODIUM BICARBONATE 650 MG TABLET PO SCH ×2 (09:04→22:40)
[2018-12-09] MEDS: amLODIPine 5 MG TABLET PO SCH (09:05)
[2018-12-09] MEDS: MULTIVITAMIN (CENTRUM) TABLET PO SCH (09:05)
[2018-12-09] MEDS: PANTOPRAZOLE 40 MG TABLET PO SCH (09:05)
[2018-12-09] MEDS: POTASSIUM CHLORIDE 20 MEQ TABLET PO PRN (10:49)
[2018-12-09] MEDS: ONDANSETRON 4 MG/2 ML VIAL IV PRN (12:02)
[2018-12-10] MEDS: CIPROFLOXACIN INJ 400 MG in PREMIX 1 EACH IV SCH ×2 (04:42→23:21)
[2018-12-10 05:08] LABS: Basophils # 0.1 10*3/uL (0.0-0.2); Basophils % 0.4 % (0.0-0.8); Eosinophils # 1.3 10*3/uL (0.0-0.87); Eosinophils % 9.4 % (0.00-10.9); Hematocrit 22.7 VOL% (35.7-47.0); Hemoglobin 7.4 GM/DL (12.0-16.0); Immature Granulocytes % 0.4 %; Immature Granulocytes Absolute 0.06 #; Lymphocytes # 2.3 10*3/uL (1.4-4.0); Lymphocytes % 16.4 % (21.3-54.2); Mean Corpuscular HGB Conc 32.6 GM/DL (32-36); Monocytes % 10.5 % (1.7-12.7); Neutrophils % 62.9 % (38.7-73.9); Platelet Count 189 T/CUMM (130-400); Red Blood Count 2.58 MC/CUMM (3.8-5.5); Red Cell Distribution Width 16.9 % (9.3-17.3); White Blood Count 13.8 T/CUMM (4-12)
[2018-12-10 05:36] LABS: Albumin 2.8 G/DL (3.4-5.0); Bilirubin,Total 1.1 MG/DL (0.2-1.0); Calcium 7.9 MG/DL (8.5-10.1); Osmolality,Calculated 299.8 MOS/KG (273-304); Total Protein 5.8 G/DL (6.4-8.3)
[2018-12-10] MEDS ORDERED: LACTATED RINGERS 1,000 ML IV SCH (08:00)
[2018-12-10] MEDS ORDERED: LIDOCAINE 2% 5 ML VIAL ONE (09:44)
[2018-12-10] MEDS ORDERED: ETOMIDATE 20 MG/10 ML VIAL IV ONE (09:44)
[2018-12-10] MEDS ORDERED: PROPOFOL 200 MG/20 ML VIAL IV ONE (09:44)
[2018-12-10] MEDS: CYANOCOBALAMIN 500 MCG TABLET PO SCH (11:08)
[2018-12-10] MEDS: FOLIC ACID 0.4 MG TABLET PO SCH (11:08)
[2018-12-10] MEDS: ASPIRIN EC 81 MG TABLET PO SCH (11:09)
[2018-12-10] MEDS: PANTOPRAZOLE 40 MG TABLET PO SCH ×2 (11:09→22:55)
[2018-12-10] MEDS: amLODIPine 5 MG TABLET PO SCH (11:09)
[2018-12-10] MEDS: TORSEMIDE 20 MG TABLET PO SCH (11:10)
[2018-12-10] MEDS: THIAMINE 100 MG TABLET PO SCH (11:10)
[2018-12-10] MEDS: SODIUM BICARBONATE 650 MG TABLET PO SCH ×2 (11:10→22:55)
[2018-12-10] MEDS: NEBIVOLOL 10 MG TABLET PO SCH (11:10)
[2018-12-10] MEDS: hydrALAZINE 10 MG TABLET PO SCH ×3 (11:11→22:58)
[2018-12-10] MEDS: MULTIVITAMIN (CENTRUM) TABLET PO SCH (11:11)
[2018-12-10] MEDS: FERROUS SULFATE 325 MG TABLET PO SCH (11:11)
[2018-12-10] MEDS ORDERED: BISACODYL 5 MG TABLET PO ONE (12:00)
[2018-12-10] MEDS: ONDANSETRON 4 MG/2 ML VIAL IV PRN ×2 (13:19→22:59)
[2018-12-10] MEDS ORDERED: SODIUM CHLORIDE 0.9% 1,000 ML IV PRN (14:34)
[2018-12-10] MEDS: SUCRALFATE 1 GM/10 ML UDCUP PO SCH ×2 (16:57→22:52)
[2018-12-10] MEDS ORDERED: POLYETHYLENE GLYCOL POWDER 255 GM BOTTLE PO ONE (18:00)
[2018-12-11 05:12] LABS: Basophils # 0.1 10*3/uL (0.0-0.2); Basophils % 0.4 % (0.0-0.8); Lymphocytes # 2.2 10*3/uL (1.4-4.0); Lymphocytes % 18.1 % (21.3-54.2)
[2018-12-11 05:27] LABS: Eosinophils # 0.9 10*3/uL (0.0-0.87); Eosinophils % 7.3 % (0.00-10.9); Hematocrit 27.7 VOL% (35.7-47.0); Hemoglobin 8.8 GM/DL (12.0-16.0); Immature Granulocytes % 0.5 %; Immature Granulocytes Absolute 0.06 #; Mean Corpuscular HGB Conc 31.8 GM/DL (32-36); Mean Corpuscular Volume 89.4 FL (87-102); Mean Platelet Volume 11.9 FL (9.6-12.0); Monocytes % 10.6 % (1.7-12.7); Neutrophils % 63.1 % (38.7-73.9); Platelet Count 208 T/CUMM (130-400); Red Cell Distribution Width 16.4 % (9.3-17.3); White Blood Count 12.4 T/CUMM (4-12)
[2018-12-11] MEDS ORDERED: PROPOFOL 200 MG/20 ML VIAL IV ONE (07:20)
[2018-12-11] MEDS ORDERED: LIDOCAINE 2% 5 ML VIAL ONE (07:20)
[2018-12-11] MEDS: SUCRALFATE 1 GM/10 ML UDCUP PO SCH ×4 (07:30→20:47)
[2018-12-11] MEDS: hydrALAZINE 10 MG TABLET PO SCH ×3 (08:53→20:46)
[2018-12-11] MEDS: amLODIPine 5 MG TABLET PO SCH (08:54)
[2018-12-11] MEDS: NEBIVOLOL 10 MG TABLET PO SCH (08:54)
[2018-12-11] MEDS: PANTOPRAZOLE 40 MG TABLET PO SCH ×2 (09:00→20:46)
[2018-12-11] MEDS: SODIUM BICARBONATE 650 MG TABLET PO SCH ×2 (09:00→20:46)
[2018-12-11] MEDS: LACTATED RINGERS 1,000 ML IV SCH (09:30)
[2018-12-11] MEDS ORDERED: HEPARIN LOCK FLUSH 500 UNIT/5 ML SYRINGE IV ONE (13:11)
[2018-12-11] MEDS: ASPIRIN EC 81 MG TABLET PO SCH (16:24)
[2018-12-11] MEDS: MULTIVITAMIN (CENTRUM) TABLET PO SCH (16:24)
[2018-12-11] MEDS: TORSEMIDE 20 MG TABLET PO SCH (16:24)
[2018-12-11] MEDS: FOLIC ACID 0.4 MG TABLET PO SCH (16:25)
[2018-12-11] MEDS: THIAMINE 100 MG TABLET PO SCH (16:25)
[2018-12-11] MEDS: CYANOCOBALAMIN 500 MCG TABLET PO SCH (16:25)
[2018-12-11] MEDS: FERROUS SULFATE 325 MG TABLET PO SCH (16:25)
[2018-12-11] MEDS: CIPROFLOXACIN INJ 400 MG in PREMIX 1 EACH IV SCH (16:28)
[2018-12-11 17:12] LABS: Calcium 8.5 MG/DL (8.5-10.1); Osmolality,Calculated 292.3 MOS/KG (273-304)
[2018-12-12 05:42] LABS: Basophils # 0.1 10*3/uL (0.0-0.2); Basophils % 0.5 % (0.0-0.8); Eosinophils # 1.1 10*3/uL (0.0-0.87); Eosinophils % 9.3 % (0.00-10.9); Hematocrit 26.2 VOL% (35.7-47.0); Hemoglobin 8.4 GM/DL (12.0-16.0); Immature Granulocytes % 0.3 %; Immature Granulocytes Absolute 0.03 #; Lymphocytes # 2.6 10*3/uL (1.4-4.0); Lymphocytes % 21.9 % (21.3-54.2); Mean Corpuscular HGB Conc 32.1 GM/DL (32-36); Mean Corpuscular Volume 89.7 FL (87-102); Mean Platelet Volume 12.3 FL (9.6-12.0); Monocytes % 12.1 % (1.7-12.7); Neutrophils % 55.9 % (38.7-73.9); Platelet Count 216 T/CUMM (130-400); Red Blood Count 2.92 MC/CUMM (3.8-5.5); Red Cell Distribution Width 16.9 % (9.3-17.3); White Blood Count 11.7 T/CUMM (4-12)
[2018-12-12 06:19] LABS: Calcium 8.5 MG/DL (8.5-10.1); Osmolality,Calculated 300.6 MOS/KG (273-304)
[2018-12-12] MEDS: LACTATED RINGERS 1,000 ML IV SCH (09:30)
[2018-12-12] MEDS: hydrALAZINE 10 MG TABLET PO SCH ×2 (09:40→15:13)
[2018-12-12] MEDS: MULTIVITAMIN (CENTRUM) TABLET PO SCH (09:41)
[2018-12-12] MEDS: NEBIVOLOL 10 MG TABLET PO SCH (09:41)
[2018-12-12] MEDS: SUCRALFATE 1 GM/10 ML UDCUP PO SCH ×2 (09:41→13:06)
[2018-12-12] MEDS: ASPIRIN EC 81 MG TABLET PO SCH (09:41)
[2018-12-12] MEDS: FOLIC ACID 0.4 MG TABLET PO SCH (09:42)
[2018-12-12] MEDS: FERROUS SULFATE 325 MG TABLET PO SCH (09:42)
[2018-12-12] MEDS: TORSEMIDE 20 MG TABLET PO SCH (09:42)
[2018-12-12] MEDS: THIAMINE 100 MG TABLET PO SCH (09:43)
[2018-12-12] MEDS: SODIUM BICARBONATE 650 MG TABLET PO SCH (09:43)
[2018-12-12] MEDS: amLODIPine 5 MG TABLET PO SCH (09:43)
[2018-12-12] MEDS: CYANOCOBALAMIN 500 MCG TABLET PO SCH (09:43)
[2018-12-12] MEDS: PANTOPRAZOLE 40 MG TABLET PO SCH (09:43)
[2018-12-12] MEDS: CIPROFLOXACIN INJ 400 MG in PREMIX 1 EACH IV SCH (10:07)
[2018-12-12] MEDS ORDERED: POTASSIUM CHLORIDE 20 MEQ TABLET PO ONE (10:24)
[2018-12-12 13:06] VITALS: BP 148/76
== END 2018-12-12 14:50 | disposition home or self-care (01) | DRG 391 ==
LOC: N.ED 09:36 → N.EDINP 09:36 → SUATTDRO 15:25 → N.3E 15:55
PROVIDERS: ADMIT Hospitalist; ATTEND Internal Medicine

== ENCOUNTER 2018-12-25 19:23 | Inpatient (IN) ==
[2018-12-25] MEDS ORDERED: ONDANSETRON 4 MG/2 ML VIAL IV STA (19:54)
[2018-12-25] MEDS ORDERED: FUROSEMIDE 100 MG/10 ML VIAL IV STA (19:54)
[2018-12-25] MEDS ORDERED: ALBUTEROL/IPRATROPIUM 3 ML NEB RESP TX STA (19:54)
[2018-12-25 20:15] LABS: Basophils # 0.1 10*3/uL (0.0-0.2); Basophils % 0.4 % (0.0-0.8); Eosinophils % 6.2 % (0.00-10.9); Hematocrit 22.7 VOL% (35.7-47.0); Hemoglobin 7.2 GM/DL (12.0-16.0); Immature Granulocytes % 0.7 %; Immature Granulocytes Absolute 0.11 #; Lymphocytes # 3.2 10*3/uL (1.4-4.0); Lymphocytes % 19.4 % (21.3-54.2); Mean Corpuscular HGB Conc 31.7 GM/DL (32-36); Mean Platelet Volume 11.5 FL (9.6-12.0); Monocytes % 12.1 % (1.7-12.7); Neutrophils % 61.2 % (38.7-73.9); Platelet Count 284 T/CUMM (130-400); Red Blood Count 2.58 MC/CUMM (3.8-5.5); White Blood Count 16.6 T/CUMM (4-12)
[2018-12-25 20:24] LABS: PT Patient Result 10.6 SECS
[2018-12-25 20:36] LABS: Albumin 3.3 G/DL (3.4-5.0); Bilirubin,Total 0.6 MG/DL (0.2-1.0); Calcium 8.3 MG/DL (8.5-10.1); Osmolality,Calculated 296.4 MOS/KG (273-304); Total Protein 7.1 G/DL (6.4-8.3)
[2018-12-25] MEDS ORDERED: ETOMIDATE 20 MG/10 ML VIAL IV ONE ×2 (21:01→21:08)
[2018-12-25] MEDS ORDERED: VECURONIUM 10 MG VIAL IV ONE ×2 (21:02→21:08)
[2018-12-25] MEDS ORDERED: PROPOFOL 1,000 MG/100 ML BOTTLE IV ONE (21:03)
[2018-12-25 21:48] LABS: ABG Base Excess -7.9 MMOL/L (-2.5-2.5); ABG HCO3 17.9 MMOL/L (20-26); ABG Oxygen Saturation 92.4 % (95-100); ABG PCO2 53.2 MM HG (35-48); ABG PO2 74.4 MM HG (80-95); ABG TCO2 19.4 MMOL/L (23-27); Allen Test Positive; Pt O2 Delivery Device Ventilator
[2018-12-25] MEDS ORDERED: ALBUTEROL 2.5 MG/3 ML NEB RESP TX PRN (21:48)
[2018-12-25] MEDS ORDERED: SODIUM BICARBONATE 50 MEQ/50 ML SYRINGE IV ONE (21:52)
[2018-12-25] MEDS ORDERED: SODIUM BICARBONATE 50 MEQ/50 ML VIAL IV ONE (21:55)
[2018-12-25] MEDS ORDERED: FAMOTIDINE 20 MG/2 ML VIAL IV SCH (22:00)
[2018-12-25] MEDS ORDERED: PROPOFOL 1,000 MG/100 ML BOTTLE IV SCH (22:00)
[2018-12-25] MEDS ORDERED: GLUCAGON 1 MG VIAL IM PRN (22:01)
[2018-12-25] MEDS ORDERED: MAGNESIUM SULF RIDER 4 GM in PREMIX 1 EACH IV PRN (22:01)
[2018-12-25] MEDS ORDERED: MAGNESIUM SULF RIDER 2 GM in PREMIX 1 EACH IV PRN (22:01)
[2018-12-25] MEDS ORDERED: DEXTROSE 50% 25 GM/50 ML VIAL IV PRN (22:01)
[2018-12-25] MEDS ORDERED: LABETALOL 20 MG/4 ML SYRINGE IV PRN (22:03)
[2018-12-25] MEDS: PROPOFOL 1,000 MG/100 ML BOTTLE IV SCH (22:40)
[2018-12-25] MEDS: ENOXAPARIN 30 MG/0.3 ML SYRINGE SUBCUT SCH (23:51)
[2018-12-26 00:14] LABS: Apearance,Urine CLEAR (Clear); Bacteria,Urine Occasional /HPF (Few); Bilirubin,Urine Negative (Negative); Blood, Urine Negative (Negative); Glucose,Urine (UA) Negative (Negative); Ketones,Urine Negative (Negative); Mucus,Urine Occasional /LPF (Occasional); Nitrite,Urine Negative (Negative); Protein,Urine 100 MG/DL; RBC,Urine 1 /HPF (0-4); Squamous Epithelial Cell,Urine Occasional /HPF (0-10); Urine Color Straw (Yellow); Urine Specific Gravity 1.006 (1.001-1.035); Urine Urobilinogen < 2.0 EU/DL (0.2-1.0); WBC,Urine 2 /HPF (0-6)
[2018-12-26] MEDS: fentaNYL INJ 1,250 MCG in SODIUM CHLORIDE 0.9% 225 ML IV PRN ×2 (01:00→16:27)
[2018-12-26] MEDS: ALBUTEROL/IPRATROPIUM 3 ML NEB RESP TX SCH ×4 (01:40→19:30)
[2018-12-26] MEDS: PROPOFOL 1,000 MG/100 ML BOTTLE IV SCH ×6 (01:46→23:50)
[2018-12-26] MEDS ORDERED: ETOMIDATE 20 MG/10 ML VIAL IV ONE (02:11)
[2018-12-26] MEDS ORDERED: VECURONIUM 10 MG VIAL IV ONE (02:11)
[2018-12-26 07:20] LABS: ABG Base Excess -0.9 MMOL/L (-2.5-2.5); ABG HCO3 23.7 MMOL/L (20-26); ABG Oxygen Saturation 98.5 % (95-100); ABG PH 7.428 (7.35-7.45); ABG TCO2 21.6 MMOL/L (23-27); Allen Test Positive; Pt O2 Delivery Device Ventilator
[2018-12-26] MEDS: INSULIN REGULAR 100 UNIT/ML SUBCUT SCH ×4 (07:43→21:19)
[2018-12-26 08:35] LABS: Basophils # 0.1 10*3/uL (0.0-0.2); Basophils % 0.3 % (0.0-0.8); Eosinophils # 0.2 10*3/uL (0.0-0.87); Eosinophils % 0.8 % (0.00-10.9); Hematocrit 20.4 VOL% (35.7-47.0); Hemoglobin 6.7 GM/DL (12.0-16.0); Immature Granulocytes % 0.7 %; Immature Granulocytes Absolute 0.14 #; Lymphocytes # 2.2 10*3/uL (1.4-4.0); Lymphocytes % 10.9 % (21.3-54.2); Mean Corpuscular HGB Conc 32.8 GM/DL (32-36); Mean Corpuscular Volume 86.8 FL (87-102); Mean Platelet Volume 11.6 FL (9.6-12.0); Monocytes % 9.4 % (1.7-12.7); Neutrophils % 77.9 % (38.7-73.9); Platelet Count 257 T/CUMM (130-400); Red Blood Count 2.35 MC/CUMM (3.8-5.5); Red Cell Distribution Width 17.6 % (9.3-17.3); White Blood Count 19.8 T/CUMM (4-12)
[2018-12-26] MEDS: FUROSEMIDE 40 MG/4 ML VIAL IV SCH ×2 (08:47→16:00)
[2018-12-26 09:03] LABS: Albumin 2.8 G/DL (3.4-5.0); Bilirubin,Total 1.3 MG/DL (0.2-1.0)
[2018-12-26] MEDS: SODIUM BICARBONATE 650 MG TABLET PO SCH (21:13)
[2018-12-26] MEDS: FAMOTIDINE 20 MG/2 ML VIAL IV SCH (21:14)
[2018-12-26] MEDS: hydrALAZINE 10 MG TABLET PO SCH (21:14)
[2018-12-26] MEDS: ENOXAPARIN 30 MG/0.3 ML SYRINGE SUBCUT SCH (21:14)
[2018-12-27] MEDS: ALBUTEROL/IPRATROPIUM 3 ML NEB RESP TX SCH ×4 (00:39→19:40)
[2018-12-27] MEDS: PROPOFOL 1,000 MG/100 ML BOTTLE IV SCH ×7 (03:40→22:52)
[2018-12-27 05:55] LABS: Basophils # 0.1 10*3/uL (0.0-0.2); Basophils % 0.2 % (0.0-0.8); Eosinophils # 0.4 10*3/uL (0.0-0.87); Eosinophils % 1.9 % (0.00-10.9); Hematocrit 19.2 VOL% (35.7-47.0); Hemoglobin 6.5 GM/DL (12.0-16.0); Immature Granulocytes % 0.9 %; Immature Granulocytes Absolute 0.18 #; Lymphocytes # 2.4 10*3/uL (1.4-4.0); Lymphocytes % 11.5 % (21.3-54.2); Mean Corpuscular HGB Conc 33.9 GM/DL (32-36); Mean Corpuscular Volume 86.1 FL (87-102); Mean Platelet Volume 12.3 FL (9.6-12.0); Monocytes % 10.2 % (1.7-12.7); NRBC # 0.02 10*3/uL; Neutrophils % 75.3 % (38.7-73.9); Platelet Count 264 T/CUMM (130-400); Red Blood Count 2.23 MC/CUMM (3.8-5.5); Red Cell Distribution Width 17.2 % (9.3-17.3); White Blood Count 21.1 T/CUMM (4-12)
[2018-12-27 06:27] LABS: Band Neutrophils 4 % (0-10); Eosinophils 1 % (0-10); Lymphocytes 13 % (20-55); Segmented Neutrophils 75 % (50-85); Total Cells Counted 100
[2018-12-27 06:28] LABS: Acanthocytes Few; Anisocytosis 1+; Calcium 8.1 MG/DL (8.5-10.1); Hypochromasia 1+; Platelet Estimate Adequate; Target Cells 1+
[2018-12-27 07:17] LABS: Hepatitis B Core IgM Quant 0.15 Index; Hepatitis B Surface Ag Quant < 0.10 Index; Hepatitis B Surface Ag Result Negative (Negative); Hepatitis C Virus Ab Quant 0.13 Index; Hepatitis C Virus Ab Result Negative (Negative)
[2018-12-27] MEDS ORDERED: SODIUM CHLORIDE 0.9% 1,000 ML IV PRN (07:30)
[2018-12-27] MEDS: INSULIN REGULAR 100 UNIT/ML SUBCUT SCH ×3 (09:06→17:35)
[2018-12-27] MEDS: LEVOFLOXACIN INJ 500 MG in PREMIX 1 EACH IV SCH (09:07)
[2018-12-27] MEDS: amLODIPine 5 MG TABLET PO SCH (09:08)
[2018-12-27] MEDS: FERROUS SULFATE 325 MG TABLET PO SCH (09:08)
[2018-12-27] MEDS: ASPIRIN EC 81 MG TABLET PO SCH (09:08)
[2018-12-27] MEDS: THIAMINE 100 MG TABLET PO SCH (09:08)
[2018-12-27] MEDS: SODIUM BICARBONATE 650 MG TABLET PO SCH ×2 (09:08→21:40)
[2018-12-27] MEDS: NEBIVOLOL 10 MG TABLET PO SCH (09:08)
[2018-12-27] MEDS: FOLIC ACID 0.4 MG TABLET PO SCH (09:08)
[2018-12-27] MEDS: CYANOCOBALAMIN 500 MCG TABLET PO SCH (09:08)
[2018-12-27] MEDS: metOLazone 5 MG TABLET PO SCH (09:08)
[2018-12-27] MEDS: FUROSEMIDE 40 MG/4 ML VIAL IV SCH ×2 (09:09→17:25)
[2018-12-27] MEDS: hydrALAZINE 10 MG TABLET PO SCH ×3 (09:09→21:40)
[2018-12-27] MEDS: fentaNYL INJ 1,250 MCG in SODIUM CHLORIDE 0.9% 225 ML IV PRN (10:30)
[2018-12-27 17:33] LABS: Hematocrit 31.5 VOL% (35.7-47.0); Hemoglobin 10.6 GM/DL (12.0-16.0)
[2018-12-27] MEDS ORDERED: metOLazone 5 MG TABLET PO SCH (17:41)
[2018-12-27] MEDS: FAMOTIDINE 20 MG/2 ML VIAL IV SCH (21:40)
[2018-12-27] MEDS: ENOXAPARIN 30 MG/0.3 ML SYRINGE SUBCUT SCH (21:40)
[2018-12-28] MEDS: ALBUTEROL/IPRATROPIUM 3 ML NEB RESP TX SCH ×4 (00:53→19:39)
[2018-12-28] MEDS: fentaNYL INJ 1,250 MCG in SODIUM CHLORIDE 0.9% 225 ML IV PRN ×2 (01:32→19:45)
[2018-12-28] MEDS: INSULIN REGULAR 100 UNIT/ML SUBCUT SCH ×4 (01:33→18:45)
[2018-12-28] MEDS: PROPOFOL 1,000 MG/100 ML BOTTLE IV SCH ×3 (03:31→21:00)
[2018-12-28 05:42] LABS: Basophils # 0.1 10*3/uL (0.0-0.2); Basophils % 0.2 % (0.0-0.8); Calcium 8.3 MG/DL (8.5-10.1); Eosinophils # 1.4 10*3/uL (0.0-0.87); Eosinophils % 6.6 % (0.00-10.9); Hematocrit 27.8 VOL% (35.7-47.0); Hemoglobin 9.3 GM/DL (12.0-16.0); Immature Granulocytes % 1.1 %; Immature Granulocytes Absolute 0.24 #; Lymphocytes # 2.6 10*3/uL (1.4-4.0); Mean Corpuscular HGB Conc 33.5 GM/DL (32-36); Mean Corpuscular Volume 84.5 FL (87-102); Mean Platelet Volume 13.2 FL (9.6-12.0); Monocytes % 10.8 % (1.7-12.7); NRBC # 0.03 10*3/uL; Neutrophils % 69.3 % (38.7-73.9); Osmolality,Calculated 293.3 MOS/KG (273-304); Platelet Count 250 T/CUMM (130-400); Red Blood Count 3.29 MC/CUMM (3.8-5.5); Red Cell Distribution Width 16.3 % (9.3-17.3); White Blood Count 21.6 T/CUMM (4-12)
[2018-12-28 06:08] LABS: Anisocytosis Slight; Eosinophils 11 % (0-10); Lymphocytes 14 % (20-55); Segmented Neutrophils 65 % (50-85); Total Cells Counted 100
[2018-12-28 06:09] LABS: Microcytosis 1+; Target Cells 1+
[2018-12-28 06:10] LABS: Platelet Estimate Normal
[2018-12-28] MEDS: hydrALAZINE 10 MG TABLET PO SCH ×3 (11:37→21:26)
[2018-12-28] MEDS: ASPIRIN EC 81 MG TABLET PO SCH (11:37)
[2018-12-28] MEDS: FERROUS SULFATE 325 MG TABLET PO SCH (11:37)
[2018-12-28] MEDS: NEBIVOLOL 10 MG TABLET PO SCH (11:38)
[2018-12-28] MEDS: amLODIPine 5 MG TABLET PO SCH (11:38)
[2018-12-28] MEDS: FOLIC ACID 0.4 MG TABLET PO SCH (11:38)
[2018-12-28] MEDS: CYANOCOBALAMIN 500 MCG TABLET PO SCH (11:38)
[2018-12-28] MEDS: SODIUM BICARBONATE 650 MG TABLET PO SCH ×2 (11:38→21:26)
[2018-12-28] MEDS: FUROSEMIDE 40 MG/4 ML VIAL IV SCH ×2 (11:38→16:32)
[2018-12-28] MEDS: THIAMINE 100 MG TABLET PO SCH (11:39)
[2018-12-28] MEDS: metOLazone 5 MG TABLET PO SCH (11:39)
[2018-12-28] MEDS: FAMOTIDINE 20 MG/2 ML VIAL IV SCH (21:22)
[2018-12-28] MEDS: ENOXAPARIN 30 MG/0.3 ML SYRINGE SUBCUT SCH (21:26)
[2018-12-29] MEDS: PROPOFOL 1,000 MG/100 ML BOTTLE IV SCH ×4 (00:03→22:22)
[2018-12-29] MEDS: INSULIN REGULAR 100 UNIT/ML SUBCUT SCH ×4 (00:23→18:39)
[2018-12-29] MEDS: ALBUTEROL/IPRATROPIUM 3 ML NEB RESP TX SCH ×4 (01:02→19:39)
[2018-12-29 04:11] LABS: ABG Base Excess 4.4 MMOL/L (-2.5-2.5); ABG HCO3 27.3 MMOL/L (20-26); ABG Oxygen Saturation 98.2 % (95-100); ABG PCO2 34.4 MM HG (35-48); ABG PH 7.518 (7.35-7.45); ABG PO2 129.4 MM HG (80-95); ABG TCO2 28.4 MMOL/L (23-27); Allen Test Positive; Pt O2 Delivery Device Ventilator
[2018-12-29 05:26] LABS: Basophils # 0.1 10*3/uL (0.0-0.2); Basophils % 0.4 % (0.0-0.8); Eosinophils # 1.6 10*3/uL (0.0-0.87); Eosinophils % 7.4 % (0.00-10.9); Hematocrit 26.7 VOL% (35.7-47.0); Hemoglobin 8.7 GM/DL (12.0-16.0); Immature Granulocytes % 1.1 %; Immature Granulocytes Absolute 0.24 #; Lymphocytes % 13.5 % (21.3-54.2); Mean Corpuscular HGB Conc 32.6 GM/DL (32-36); Mean Corpuscular Volume 85.9 FL (87-102); Mean Platelet Volume 12.6 FL (9.6-12.0); Monocytes % 12.7 % (1.7-12.7); NRBC # 0.05 10*3/uL; Neutrophils % 64.9 % (38.7-73.9); Platelet Count 255 T/CUMM (130-400); Red Blood Count 3.11 MC/CUMM (3.8-5.5); Red Cell Distribution Width 16.8 % (9.3-17.3); White Blood Count 21.9 T/CUMM (4-12)
[2018-12-29 05:45] LABS: Osmolality,Calculated 290.3 MOS/KG (273-304)
[2018-12-29 05:52] LABS: Anisocytosis 1+; Eosinophils 9 % (0-10); Lymphocytes 10 % (20-55); Platelet Estimate Adequate; Segmented Neutrophils 77 % (50-85); Total Cells Counted 100
[2018-12-29] MEDS: LEVOFLOXACIN INJ 500 MG in PREMIX 1 EACH IV SCH (08:14)
[2018-12-29] MEDS: metOLazone 5 MG TABLET PO SCH (08:16)
[2018-12-29] MEDS: FUROSEMIDE 40 MG/4 ML VIAL IV SCH (08:16)
[2018-12-29] MEDS: NEBIVOLOL 10 MG TABLET PO SCH (08:16)
[2018-12-29] MEDS: SODIUM BICARBONATE 650 MG TABLET PO SCH (08:16)
[2018-12-29] MEDS: amLODIPine 5 MG TABLET PO SCH (08:16)
[2018-12-29] MEDS: THIAMINE 100 MG TABLET PO SCH (08:16)
[2018-12-29] MEDS: ASPIRIN EC 81 MG TABLET PO SCH (08:16)
[2018-12-29] MEDS: FOLIC ACID 0.4 MG TABLET PO SCH (08:16)
[2018-12-29] MEDS: FERROUS SULFATE 325 MG TABLET PO SCH (08:16)
[2018-12-29] MEDS: hydrALAZINE 10 MG TABLET PO SCH ×3 (08:16→21:32)
[2018-12-29] MEDS: CYANOCOBALAMIN 500 MCG TABLET PO SCH (08:16)
[2018-12-29] MEDS ORDERED: VANCOMYCIN INJ 1,750 MG in SODIUM CHLORIDE 0.9% 500 ML IV ONE (11:00)
[2018-12-29] MEDS: fentaNYL INJ 1,250 MCG in SODIUM CHLORIDE 0.9% 225 ML IV PRN (15:18)
[2018-12-29] MEDS: ENOXAPARIN 30 MG/0.3 ML SYRINGE SUBCUT SCH (21:33)
[2018-12-29] MEDS: FAMOTIDINE 20 MG/2 ML VIAL IV SCH (21:33)
[2018-12-30] MEDS: INSULIN REGULAR 100 UNIT/ML SUBCUT SCH ×5 (00:38→23:48)
[2018-12-30] MEDS: ALBUTEROL/IPRATROPIUM 3 ML NEB RESP TX SCH ×4 (01:00→19:02)
[2018-12-30] MEDS: PROPOFOL 1,000 MG/100 ML BOTTLE IV SCH ×3 (02:40→22:12)
[2018-12-30 03:33] LABS: ABG Base Excess 3.9 MMOL/L (-2.5-2.5); ABG HCO3 27.9 MMOL/L (20-26); ABG Oxygen Saturation 97.4 % (95-100); ABG PCO2 34.3 MM HG (35-48); ABG PH 7.503 (7.35-7.45); ABG TCO2 24.7 MMOL/L (23-27); Pt O2 Delivery Device Ventilator
[2018-12-30 05:36] LABS: Basophils % 0.2 % (0.0-0.8); Eosinophils # 1.1 10*3/uL (0.0-0.87); Eosinophils % 5.2 % (0.00-10.9); Hematocrit 27.7 VOL% (35.7-47.0); Hemoglobin 9.4 GM/DL (12.0-16.0); Immature Granulocytes % 0.8 %; Immature Granulocytes Absolute 0.16 #; Lymphocytes # 2.6 10*3/uL (1.4-4.0); Lymphocytes % 12.6 % (21.3-54.2); Mean Corpuscular HGB Conc 33.9 GM/DL (32-36); Mean Corpuscular Volume 84.7 FL (87-102); Mean Platelet Volume 12.2 FL (9.6-12.0); Monocytes % 13.4 % (1.7-12.7); NRBC # 0.04 10*3/uL; Neutrophils % 67.8 % (38.7-73.9); Platelet Count 292 T/CUMM (130-400); Red Blood Count 3.27 MC/CUMM (3.8-5.5); Red Cell Distribution Width 16.8 % (9.3-17.3); White Blood Count 20.8 T/CUMM (4-12)
[2018-12-30 05:50] LABS: Calcium 8.9 MG/DL (8.5-10.1); Osmolality,Calculated 294.3 MOS/KG (273-304)
[2018-12-30 05:58] LABS: Eosinophils 10 % (0-10); Lymphocytes 7 % (20-55); Platelet Estimate Adequate; Segmented Neutrophils 69 % (50-85); Total Cells Counted 100
[2018-12-30 05:59] LABS: Hypochromasia 1+
[2018-12-30] MEDS: fentaNYL INJ 1,250 MCG in SODIUM CHLORIDE 0.9% 225 ML IV PRN ×2 (07:14→22:09)
[2018-12-30] MEDS: NEBIVOLOL 10 MG TABLET PO SCH (09:15)
[2018-12-30] MEDS: CYANOCOBALAMIN 500 MCG TABLET PO SCH (09:15)
[2018-12-30] MEDS: FOLIC ACID 0.4 MG TABLET PO SCH (09:15)
[2018-12-30] MEDS: hydrALAZINE 10 MG TABLET PO SCH ×3 (09:15→21:03)
[2018-12-30] MEDS: ASPIRIN CHEW 81 MG TABLET PO SCH (09:15)
[2018-12-30] MEDS: FERROUS SULFATE 325 MG TABLET PO SCH (09:15)
[2018-12-30] MEDS: THIAMINE 100 MG TABLET PO SCH (09:16)
[2018-12-30] MEDS: amLODIPine 5 MG TABLET PO SCH (10:51)
[2018-12-30] MEDS ORDERED: VANCOMYCIN INJ 750 MG in SODIUM CHLORIDE 0.9% 250 ML IV ONE (17:00)
[2018-12-30] MEDS ORDERED: VANCOMYCIN INJ 750 MG in SODIUM CHLORIDE 0.9% 250 ML IV PRN (17:00)
[2018-12-30] MEDS: ENOXAPARIN 30 MG/0.3 ML SYRINGE SUBCUT SCH (21:03)
[2018-12-30] MEDS: FAMOTIDINE 20 MG/2 ML VIAL IV SCH (21:03)
[2018-12-31] MEDS: ALBUTEROL/IPRATROPIUM 3 ML NEB RESP TX SCH ×4 (00:42→19:19)
[2018-12-31 03:06] LABS: ABG Base Excess 2.5 MMOL/L (-2.5-2.5); ABG HCO3 26.7 MMOL/L (20-26); ABG Oxygen Saturation 98.5 % (95-100); ABG PCO2 38.9 MM HG (35-48); ABG PH 7.444 (7.35-7.45); ABG TCO2 24.4 MMOL/L (23-27); Allen Test Positive; Pt O2 Delivery Device Ventilator
[2018-12-31 06:15] LABS: Basophils # 0.1 10*3/uL (0.0-0.2); Basophils % 0.3 % (0.0-0.8); Eosinophils # 1.2 10*3/uL (0.0-0.87); Eosinophils % 5.8 % (0.00-10.9); Hematocrit 28.3 VOL% (35.7-47.0); Hemoglobin 9.2 GM/DL (12.0-16.0); Immature Granulocytes % 1.3 %; Immature Granulocytes Absolute 0.26 #; Lymphocytes # 2.1 10*3/uL (1.4-4.0); Lymphocytes % 10.3 % (21.3-54.2); Mean Corpuscular HGB Conc 32.5 GM/DL (32-36); Mean Corpuscular Volume 86.8 FL (87-102); Mean Platelet Volume 11.7 FL (9.6-12.0); Monocytes % 16.6 % (1.7-12.7); NRBC # 0.03 10*3/uL; Neutrophils % 65.7 % (38.7-73.9); Platelet Count 277 T/CUMM (130-400); Red Blood Count 3.26 MC/CUMM (3.8-5.5); Red Cell Distribution Width 17.2 % (9.3-17.3); White Blood Count 20.2 T/CUMM (4-12)
[2018-12-31] MEDS: INSULIN REGULAR 100 UNIT/ML SUBCUT SCH ×3 (06:27→18:24)
[2018-12-31 06:35] LABS: Eosinophils 5 % (0-10); Hypochromasia 1+; Lymphocytes 11 % (20-55); Ovalocytes Slight; Platelet Estimate Adequate; Segmented Neutrophils 67 % (50-85); Total Cells Counted 100
[2018-12-31 06:52] LABS: Calcium 8.8 MG/DL (8.5-10.1); Osmolality,Calculated 285.5 MOS/KG (273-304)
[2018-12-31 06:57] LABS: Prealbumin 15.7 MG/DL (20-40)
[2018-12-31] MEDS: FOLIC ACID 0.4 MG TABLET PO SCH (09:31)
[2018-12-31] MEDS: CYANOCOBALAMIN 500 MCG TABLET PO SCH (09:31)
[2018-12-31] MEDS: NEBIVOLOL 10 MG TABLET PO SCH (09:31)
[2018-12-31] MEDS: FERROUS SULFATE 325 MG TABLET PO SCH (09:31)
[2018-12-31] MEDS: hydrALAZINE 10 MG TABLET PO SCH ×3 (09:31→21:17)
[2018-12-31] MEDS: ASPIRIN CHEW 81 MG TABLET PO SCH (09:32)
[2018-12-31] MEDS: amLODIPine 5 MG TABLET PO SCH (09:32)
[2018-12-31] MEDS: THIAMINE 100 MG TABLET PO SCH (09:34)
[2018-12-31] MEDS: PROPOFOL 1,000 MG/100 ML BOTTLE IV SCH ×3 (10:54→23:22)
[2018-12-31] MEDS: LEVOFLOXACIN INJ 500 MG in PREMIX 1 EACH IV SCH ×2 (13:41→14:02)
[2018-12-31] MEDS: fentaNYL INJ 1,250 MCG in SODIUM CHLORIDE 0.9% 225 ML IV PRN (13:42)
[2018-12-31] MEDS: ENOXAPARIN 30 MG/0.3 ML SYRINGE SUBCUT SCH (21:17)
[2018-12-31] MEDS: FAMOTIDINE 20 MG/2 ML VIAL IV SCH (21:17)
[2019-01-01] MEDS: INSULIN REGULAR 100 UNIT/ML SUBCUT SCH ×4 (00:31→18:20)
[2019-01-01] MEDS: ALBUTEROL/IPRATROPIUM 3 ML NEB RESP TX SCH ×4 (00:45→19:59)
[2019-01-01 03:00] LABS: ABG Base Excess -0.1 MMOL/L (-2.5-2.5); ABG HCO3 23.8 MMOL/L (20-26); ABG Oxygen Saturation 98.3 % (95-100); ABG PCO2 35.7 MM HG (35-48); ABG PH 7.441 (7.35-7.45); ABG PO2 133.3 MM HG (80-95); ABG TCO2 24.9 MMOL/L (23-27); Allen Test Positive; Pt O2 Delivery Device Ventilator
[2019-01-01] MEDS: PROPOFOL 1,000 MG/100 ML BOTTLE IV SCH ×2 (04:08→22:58)
[2019-01-01 06:05] LABS: Basophils # 0.1 10*3/uL (0.0-0.2); Basophils % 0.3 % (0.0-0.8); Eosinophils # 0.9 10*3/uL (0.0-0.87); Eosinophils % 4.3 % (0.00-10.9); Hematocrit 27.4 VOL% (35.7-47.0); Hemoglobin 9.1 GM/DL (12.0-16.0); Immature Granulocytes % 1.8 %; Immature Granulocytes Absolute 0.35 #; Lymphocytes # 2.1 10*3/uL (1.4-4.0); Lymphocytes % 10.8 % (21.3-54.2); Mean Corpuscular HGB Conc 33.2 GM/DL (32-36); Mean Corpuscular Volume 86.7 FL (87-102); Monocytes % 16.9 % (1.7-12.7); NRBC # 0.06 10*3/uL; Neutrophils % 65.9 % (38.7-73.9); Platelet Count 302 T/CUMM (130-400); Red Blood Count 3.16 MC/CUMM (3.8-5.5); Red Cell Distribution Width 17.2 % (9.3-17.3); White Blood Count 19.6 T/CUMM (4-12)
[2019-01-01 06:26] LABS: Band Neutrophils 1 % (0-10); Eosinophils 3 % (0-10); Hypochromasia 1+; Lymphocytes 11 % (20-55); Platelet Estimate Adequate; Segmented Neutrophils 72 % (50-85); Total Cells Counted 100
[2019-01-01 06:38] LABS: Calcium 8.6 MG/DL (8.5-10.1); Osmolality,Calculated 292.5 MOS/KG (273-304)
[2019-01-01] MEDS: NEBIVOLOL 10 MG TABLET PO SCH (09:37)
[2019-01-01] MEDS: THIAMINE 100 MG TABLET PO SCH (09:38)
[2019-01-01] MEDS: CYANOCOBALAMIN 500 MCG TABLET PO SCH (09:38)
[2019-01-01] MEDS: FERROUS SULFATE 325 MG TABLET PO SCH (09:38)
[2019-01-01] MEDS: amLODIPine 5 MG TABLET PO SCH (09:38)
[2019-01-01] MEDS: FOLIC ACID 0.4 MG TABLET PO SCH (09:38)
[2019-01-01] MEDS: ASPIRIN CHEW 81 MG TABLET PO SCH (09:38)
[2019-01-01] MEDS: hydrALAZINE 10 MG TABLET PO SCH ×3 (09:38→21:12)
[2019-01-01] MEDS: fentaNYL INJ 1,250 MCG in SODIUM CHLORIDE 0.9% 225 ML IV PRN (10:00)
[2019-01-01] MEDS ORDERED: VANCOMYCIN INJ 750 MG in SODIUM CHLORIDE 0.9% 250 ML IV ONE (17:00)
[2019-01-01] MEDS: FAMOTIDINE 20 MG/2 ML VIAL IV SCH (21:12)
[2019-01-01] MEDS: ENOXAPARIN 30 MG/0.3 ML SYRINGE SUBCUT SCH (21:12)
[2019-01-02] MEDS: INSULIN REGULAR 100 UNIT/ML SUBCUT SCH ×4 (00:25→18:50)
[2019-01-02] MEDS: ALBUTEROL/IPRATROPIUM 3 ML NEB RESP TX SCH ×5 (00:30→23:59)
[2019-01-02 05:58] LABS: Basophils # 0.1 10*3/uL (0.0-0.2); Basophils % 0.4 % (0.0-0.8); Eosinophils # 1.3 10*3/uL (0.0-0.87); Eosinophils % 6.7 % (0.00-10.9); Hematocrit 25.1 VOL% (35.7-47.0); Hemoglobin 8.2 GM/DL (12.0-16.0); Immature Granulocytes % 3.2 %; Lymphocytes # 2.5 10*3/uL (1.4-4.0); Mean Corpuscular HGB Conc 32.7 GM/DL (32-36); Mean Corpuscular Volume 87.5 FL (87-102); Mean Platelet Volume 12.3 FL (9.6-12.0); Monocytes % 15.7 % (1.7-12.7); NRBC # 0.05 10*3/uL; Platelet Count 294 T/CUMM (130-400); Red Blood Count 2.87 MC/CUMM (3.8-5.5); Red Cell Distribution Width 17.2 % (9.3-17.3)
[2019-01-02] MEDS: fentaNYL INJ 1,250 MCG in SODIUM CHLORIDE 0.9% 225 ML IV PRN (06:21)
[2019-01-02 06:22] LABS: Calcium 8.5 MG/DL (8.5-10.1); Osmolality,Calculated 298.4 MOS/KG (273-304)
[2019-01-02 06:26] LABS: Eosinophils 6 % (0-10); Hypochromasia 1+; Lymphocytes 11 % (20-55); Microcytosis 1+; Platelet Estimate Normal; Prealbumin 15.4 MG/DL (20-40); Segmented Neutrophils 68 % (50-85); Total Cells Counted 100
[2019-01-02] MEDS: PROPOFOL 1,000 MG/100 ML BOTTLE IV SCH (07:16)
[2019-01-02] MEDS: FOLIC ACID 0.4 MG TABLET PO SCH (08:52)
[2019-01-02] MEDS: THIAMINE 100 MG TABLET PO SCH (08:52)
[2019-01-02] MEDS: FERROUS SULFATE 325 MG TABLET PO SCH (08:52)
[2019-01-02] MEDS: CYANOCOBALAMIN 500 MCG TABLET PO SCH (08:52)
[2019-01-02] MEDS: NEBIVOLOL 10 MG TABLET PO SCH (08:52)
[2019-01-02] MEDS: ASPIRIN CHEW 81 MG TABLET PO SCH (08:52)
[2019-01-02] MEDS: amLODIPine 5 MG TABLET PO SCH (08:52)
[2019-01-02] MEDS: hydrALAZINE 10 MG TABLET PO SCH ×3 (08:53→21:00)
[2019-01-02 10:30] LABS: ABG Base Excess -1.5 MMOL/L (-2.5-2.5); ABG HCO3 23.2 MMOL/L (20-26); ABG Oxygen Saturation 98.8 % (95-100); ABG PCO2 43.4 MM HG (35-48); ABG PH 7.352 (7.35-7.45); ABG TCO2 22.3 MMOL/L (23-27); Allen Test Positive; Pt O2 Delivery Device Ventilator
[2019-01-02] MEDS: LEVOFLOXACIN INJ 500 MG in PREMIX 1 EACH IV SCH (13:31)
[2019-01-02] MEDS: ENOXAPARIN 30 MG/0.3 ML SYRINGE SUBCUT SCH (21:00)
[2019-01-02] MEDS: FAMOTIDINE 20 MG/2 ML VIAL IV SCH (21:00)
[2019-01-03] MEDS: INSULIN REGULAR 100 UNIT/ML SUBCUT SCH ×4 (00:03→17:27)
[2019-01-03] MEDS: PROPOFOL 1,000 MG/100 ML BOTTLE IV SCH ×3 (00:03→20:00)
[2019-01-03 04:01] LABS: Basophils # 0.1 10*3/uL (0.0-0.2); Basophils % 0.3 % (0.0-0.8); Eosinophils # 0.9 10*3/uL (0.0-0.87); Eosinophils % 4.2 % (0.00-10.9); Hemoglobin 8.1 GM/DL (12.0-16.0); Immature Granulocytes % 3.3 %; Immature Granulocytes Absolute 0.68 #; Lymphocytes % 9.7 % (21.3-54.2); Mean Corpuscular HGB Conc 32.4 GM/DL (32-36); Mean Platelet Volume 11.5 FL (9.6-12.0); Monocytes % 18.9 % (1.7-12.7); NRBC # 0.07 10*3/uL; Neutrophils % 63.6 % (38.7-73.9); Platelet Count 293 T/CUMM (130-400); Red Blood Count 2.84 MC/CUMM (3.8-5.5); White Blood Count 20.4 T/CUMM (4-12)
[2019-01-03 04:22] LABS: ABG Base Excess 3.2 MMOL/L (-2.5-2.5); ABG HCO3 26.3 MMOL/L (20-26); ABG Oxygen Saturation 98.6 % (95-100); ABG PH 7.506 (7.35-7.45); ABG PO2 145.2 MM HG (80-95); ABG TCO2 27.3 MMOL/L (23-27); Allen Test Positive; Pt O2 Delivery Device Ventilator
[2019-01-03 04:27] LABS: Calcium 8.4 MG/DL (8.5-10.1); Osmolality,Calculated 286.8 MOS/KG (273-304)
[2019-01-03 04:50] LABS: Band Neutrophils 2 % (0-10); Eosinophils 5 % (0-10); Hypochromasia 1+; Lymphocytes 11 % (20-55); Microcytosis 1+; Platelet Estimate Adequate; Segmented Neutrophils 64 % (50-85); Total Cells Counted 100
[2019-01-03] MEDS: ALBUTEROL/IPRATROPIUM 3 ML NEB RESP TX SCH ×3 (07:18→20:01)
[2019-01-03] MEDS: NEBIVOLOL 10 MG TABLET PO SCH (09:23)
[2019-01-03] MEDS: CYANOCOBALAMIN 500 MCG TABLET PO SCH (09:23)
[2019-01-03] MEDS: ASPIRIN CHEW 81 MG TABLET PO SCH (09:24)
[2019-01-03] MEDS: FOLIC ACID 0.4 MG TABLET PO SCH (09:24)
[2019-01-03] MEDS: FERROUS SULFATE 325 MG TABLET PO SCH (09:24)
[2019-01-03] MEDS: THIAMINE 100 MG TABLET PO SCH (09:24)
[2019-01-03] MEDS: hydrALAZINE 10 MG TABLET PO SCH ×3 (09:24→20:04)
[2019-01-03] MEDS: amLODIPine 5 MG TABLET PO SCH (09:24)
[2019-01-03] MEDS ORDERED: VECURONIUM 10 MG VIAL IV ONE (10:13)
[2019-01-03] MEDS ORDERED: PROPOFOL 200 MG/20 ML VIAL IV ONE (10:16)
[2019-01-03] MEDS ORDERED: ATROPINE 1 MG/10 ML SYRINGE ONE (10:21)
[2019-01-03] MEDS ORDERED: ATROPINE 1 MG/10 ML SYRINGE IV ONE (10:22)
[2019-01-03] MEDS ORDERED: VANCOMYCIN INJ 750 MG in SODIUM CHLORIDE 0.9% 250 ML IV ONE (17:00)
[2019-01-03] MEDS: FAMOTIDINE 20 MG/2 ML VIAL IV SCH (21:02)
[2019-01-03] MEDS: ENOXAPARIN 30 MG/0.3 ML SYRINGE SUBCUT SCH (21:30)
[2019-01-04] MEDS: INSULIN REGULAR 100 UNIT/ML SUBCUT SCH ×4 (00:09→18:13)
[2019-01-04] MEDS: ALBUTEROL/IPRATROPIUM 3 ML NEB RESP TX SCH ×4 (00:13→20:25)
[2019-01-04 03:22] LABS: ABG Base Excess 3.3 MMOL/L (-2.5-2.5); ABG HCO3 27.4 MMOL/L (20-26); ABG PCO2 37.9 MM HG (35-48); ABG PH 7.463 (7.35-7.45); ABG TCO2 24.8 MMOL/L (23-27); Allen Test Positive; Pt O2 Delivery Device Ventilator
[2019-01-04] MEDS: PROPOFOL 1,000 MG/100 ML BOTTLE IV SCH ×2 (06:31→18:20)
[2019-01-04] MEDS: FERROUS SULFATE 325 MG TABLET PO SCH (08:37)
[2019-01-04] MEDS: ASPIRIN CHEW 81 MG TABLET PO SCH (08:37)
[2019-01-04] MEDS: FOLIC ACID 0.4 MG TABLET PO SCH (08:37)
[2019-01-04] MEDS: amLODIPine 5 MG TABLET PO SCH (08:37)
[2019-01-04] MEDS: CYANOCOBALAMIN 500 MCG TABLET PO SCH (08:37)
[2019-01-04] MEDS: NEBIVOLOL 10 MG TABLET PO SCH (08:37)
[2019-01-04] MEDS: hydrALAZINE 10 MG TABLET PO SCH ×3 (08:37→21:03)
[2019-01-04] MEDS: THIAMINE 100 MG TABLET PO SCH (08:37)
[2019-01-04] MEDS: LEVOFLOXACIN INJ 500 MG in PREMIX 1 EACH IV SCH (13:57)
[2019-01-04] MEDS: FAMOTIDINE 20 MG/2 ML VIAL IV SCH (21:01)
[2019-01-04] MEDS: ENOXAPARIN 30 MG/0.3 ML SYRINGE SUBCUT SCH (21:03)
[2019-01-05] MEDS: INSULIN REGULAR 100 UNIT/ML SUBCUT SCH ×4 (00:35→18:01)
[2019-01-05] MEDS: ALBUTEROL/IPRATROPIUM 3 ML NEB RESP TX SCH ×4 (01:28→19:30)
[2019-01-05] MEDS: PROPOFOL 1,000 MG/100 ML BOTTLE IV SCH ×3 (02:27→20:15)
[2019-01-05 04:03] LABS: ABG Base Excess 1.1 MMOL/L (-2.5-2.5); ABG HCO3 25.5 MMOL/L (20-26); ABG Oxygen Saturation 99.6 % (95-100); ABG PCO2 37.4 MM HG (35-48); ABG PH 7.436 (7.35-7.45); ABG TCO2 22.5 MMOL/L (23-27); Allen Test Positive; Pt O2 Delivery Device Ventilator
[2019-01-05 05:48] LABS: Basophils # 0.1 10*3/uL (0.0-0.2); Basophils % 0.3 % (0.0-0.8); Eosinophils % 4.9 % (0.00-10.9); Hematocrit 24.8 VOL% (35.7-47.0); Immature Granulocytes % 2.7 %; Immature Granulocytes Absolute 0.57 #; Lymphocytes # 2.7 10*3/uL (1.4-4.0); Lymphocytes % 12.8 % (21.3-54.2); Mean Corpuscular HGB Conc 32.3 GM/DL (32-36); Mean Corpuscular Volume 88.3 FL (87-102); Mean Platelet Volume 11.3 FL (9.6-12.0); Monocytes % 17.5 % (1.7-12.7); NRBC # 0.05 10*3/uL; Neutrophils % 61.8 % (38.7-73.9); Platelet Count 385 T/CUMM (130-400); Red Blood Count 2.81 MC/CUMM (3.8-5.5); White Blood Count 20.8 T/CUMM (4-12)
[2019-01-05 06:10] LABS: Calcium 8.9 MG/DL (8.5-10.1); Osmolality,Calculated 295.5 MOS/KG (273-304)
[2019-01-05 06:13] LABS: Eosinophils 11 % (0-10); Lymphocytes 14 % (20-55); Segmented Neutrophils 57 % (50-85); Total Cells Counted 100
[2019-01-05 06:14] LABS: Hypochromasia 1+; Microcytosis 1+
[2019-01-05] MEDS: hydrALAZINE 10 MG TABLET PO SCH ×3 (08:30→21:30)
[2019-01-05] MEDS: NEBIVOLOL 10 MG TABLET PO SCH (08:30)
[2019-01-05] MEDS: FOLIC ACID 0.4 MG TABLET PO SCH (08:30)
[2019-01-05] MEDS: ASPIRIN CHEW 81 MG TABLET PO SCH (08:30)
[2019-01-05] MEDS: amLODIPine 5 MG TABLET PO SCH (08:31)
[2019-01-05] MEDS: FERROUS SULFATE 325 MG TABLET PO SCH (08:31)
[2019-01-05] MEDS: THIAMINE 100 MG TABLET PO SCH (08:31)
[2019-01-05] MEDS: CYANOCOBALAMIN 500 MCG TABLET PO SCH (08:31)
[2019-01-05] MEDS: FAMOTIDINE 20 MG/2 ML VIAL IV SCH (21:46)
[2019-01-05] MEDS: ENOXAPARIN 30 MG/0.3 ML SYRINGE SUBCUT SCH (21:46)
[2019-01-06] MEDS: INSULIN REGULAR 100 UNIT/ML SUBCUT SCH ×4 (01:05→19:15)
[2019-01-06] MEDS: ALBUTEROL/IPRATROPIUM 3 ML NEB RESP TX SCH ×4 (01:49→19:36)
[2019-01-06 03:03] LABS: ABG Base Excess 0.4 MMOL/L (-2.5-2.5); ABG HCO3 24.8 MMOL/L (20-26); ABG Oxygen Saturation 99.2 % (95-100); ABG PCO2 36.1 MM HG (35-48); ABG PH 7.438 (7.35-7.45); ABG TCO2 22.6 MMOL/L (23-27); Allen Test Positive; Pt O2 Delivery Device Ventilator
[2019-01-06 05:41] LABS: Basophils # 0.1 10*3/uL (0.0-0.2); Basophils % 0.4 % (0.0-0.8); Eosinophils # 1.5 10*3/uL (0.0-0.87); Eosinophils % 5.8 % (0.00-10.9); Hematocrit 25.7 VOL% (35.7-47.0); Hemoglobin 8.3 GM/DL (12.0-16.0); Immature Granulocytes % 2.8 %; Immature Granulocytes Absolute 0.74 #; Lymphocytes # 2.9 10*3/uL (1.4-4.0); Lymphocytes % 10.9 % (21.3-54.2); Mean Corpuscular HGB Conc 32.3 GM/DL (32-36); Mean Corpuscular Volume 88.3 FL (87-102); Monocytes % 14.1 % (1.7-12.7); NRBC # 0.03 10*3/uL; Platelet Count 444 T/CUMM (130-400); Red Blood Count 2.91 MC/CUMM (3.8-5.5); Red Cell Distribution Width 17.2 % (9.3-17.3); White Blood Count 26.1 T/CUMM (4-12)
[2019-01-06 06:08] LABS: Calcium 9.1 MG/DL (8.5-10.1); Osmolality,Calculated 303.4 MOS/KG (273-304)
[2019-01-06 06:24] LABS: Eosinophils 6 % (0-10); Hypochromasia 1+; Lymphocytes 9 % (20-55); Microcytosis 1+; Platelet Estimate Normal; Polychromasia Few; Segmented Neutrophils 77 % (50-85); Total Cells Counted 100
[2019-01-06] MEDS: PROPOFOL 1,000 MG/100 ML BOTTLE IV SCH ×2 (06:30→18:17)
[2019-01-06] MEDS: NEBIVOLOL 10 MG TABLET PO SCH (09:36)
[2019-01-06] MEDS: hydrALAZINE 10 MG TABLET PO SCH ×3 (09:36→21:16)
[2019-01-06] MEDS: amLODIPine 5 MG TABLET PO SCH (09:37)
[2019-01-06] MEDS: FERROUS SULFATE 325 MG TABLET PO SCH (09:48)
[2019-01-06] MEDS: FOLIC ACID 0.4 MG TABLET PO SCH (09:49)
[2019-01-06] MEDS: CYANOCOBALAMIN 500 MCG TABLET PO SCH (09:49)
[2019-01-06] MEDS: ASPIRIN CHEW 81 MG TABLET PO SCH (09:50)
[2019-01-06] MEDS: THIAMINE 100 MG TABLET PO SCH (09:50)
[2019-01-06] MEDS: MEROPENEM 500 MG in SODIUM CHLORIDE 0.9% 100 ML IV SCH (13:21)
[2019-01-06] MEDS ORDERED: VANCOMYCIN INJ 750 MG in SODIUM CHLORIDE 0.9% 250 ML IV ONE (18:00)
[2019-01-06] MEDS: FAMOTIDINE 20 MG/2 ML VIAL IV SCH (21:16)
[2019-01-07] MEDS: INSULIN REGULAR 100 UNIT/ML SUBCUT SCH ×4 (00:33→18:38)
[2019-01-07] MEDS: ALBUTEROL/IPRATROPIUM 3 ML NEB RESP TX SCH ×4 (00:52→19:17)
[2019-01-07] MEDS: PROPOFOL 1,000 MG/100 ML BOTTLE IV SCH ×2 (03:29→09:10)
[2019-01-07 04:48] LABS: Basophils # 0.1 10*3/uL (0.0-0.2); Basophils % 0.4 % (0.0-0.8); Eosinophils # 1.4 10*3/uL (0.0-0.87); Eosinophils % 4.7 % (0.00-10.9); Hematocrit 25.4 VOL% (35.7-47.0); Hemoglobin 8.2 GM/DL (12.0-16.0); Immature Granulocytes % 2.5 %; Immature Granulocytes Absolute 0.75 #; Lymphocytes # 3.2 10*3/uL (1.4-4.0); Lymphocytes % 10.5 % (21.3-54.2); Mean Corpuscular HGB Conc 32.3 GM/DL (32-36); Mean Corpuscular Volume 89.4 FL (87-102); Mean Platelet Volume 11.7 FL (9.6-12.0); Monocytes % 14.7 % (1.7-12.7); NRBC # 0.03 10*3/uL; Neutrophils % 67.2 % (38.7-73.9); Platelet Count 437 T/CUMM (130-400); Red Blood Count 2.84 MC/CUMM (3.8-5.5); Red Cell Distribution Width 17.3 % (9.3-17.3); White Blood Count 30.2 T/CUMM (4-12)
[2019-01-07 04:48] LABS: ABG Base Excess 2.8 MMOL/L (-2.5-2.5); ABG Oxygen Saturation 99.3 % (95-100); ABG PCO2 40.7 MM HG (35-48); ABG PH 7.434 (7.35-7.45); ABG TCO2 25.1 MMOL/L (23-27)
[2019-01-07 05:10] LABS: Eosinophils 7 % (0-10); Hypochromasia 1+; Lymphocytes 6 % (20-55); Microcytosis 1+; Misc Morphology F; Platelet Estimate Adequate; Segmented Neutrophils 75 % (50-85); Total Cells Counted 100
[2019-01-07 05:17] LABS: Calcium 9.4 MG/DL (8.5-10.1); Osmolality,Calculated 285.8 MOS/KG (273-304)
[2019-01-07] MEDS ORDERED: MIDAZOLAM 2 MG/2 ML VIAL IV ONE (06:30)
[2019-01-07] MEDS: FERROUS SULFATE 325 MG TABLET PO SCH (08:56)
[2019-01-07] MEDS: ASPIRIN CHEW 81 MG TABLET PO SCH (08:56)
[2019-01-07] MEDS: NEBIVOLOL 10 MG TABLET PO SCH (08:56)
[2019-01-07] MEDS: CYANOCOBALAMIN 500 MCG TABLET PO SCH (08:56)
[2019-01-07] MEDS: amLODIPine 5 MG TABLET PO SCH (08:56)
[2019-01-07] MEDS: THIAMINE 100 MG TABLET PO SCH (08:57)
[2019-01-07] MEDS: FOLIC ACID 0.4 MG TABLET PO SCH (08:57)
[2019-01-07] MEDS: hydrALAZINE 10 MG TABLET PO SCH ×3 (08:57→20:57)
[2019-01-07] MEDS: MEROPENEM 500 MG in SODIUM CHLORIDE 0.9% 100 ML IV SCH (12:41)
[2019-01-07] MEDS: MORPHINE 4 MG/1 ML VIAL IV PRN (17:25)
[2019-01-07] MEDS: FAMOTIDINE 20 MG/2 ML VIAL IV SCH (21:03)
[2019-01-08] MEDS: INSULIN REGULAR 100 UNIT/ML SUBCUT SCH ×4 (00:09→17:46)
[2019-01-08] MEDS: ALBUTEROL/IPRATROPIUM 3 ML NEB RESP TX SCH ×4 (00:21→19:12)
[2019-01-08] MEDS: PROPOFOL 1,000 MG/100 ML BOTTLE IV SCH ×2 (03:31→18:06)
[2019-01-08 04:05] LABS: Basophils # 0.1 10*3/uL (0.0-0.2); Basophils % 0.3 % (0.0-0.8); Eosinophils # 1.2 10*3/uL (0.0-0.87); Eosinophils % 3.7 % (0.00-10.9); Hematocrit 23.9 VOL% (35.7-47.0); Hemoglobin 7.8 GM/DL (12.0-16.0); Immature Granulocytes % 2.4 %; Immature Granulocytes Absolute 0.82 #; Lymphocytes # 2.8 10*3/uL (1.4-4.0); Lymphocytes % 8.4 % (21.3-54.2); Mean Corpuscular HGB Conc 32.6 GM/DL (32-36); Mean Corpuscular Volume 88.5 FL (87-102); Mean Platelet Volume 11.8 FL (9.6-12.0); Monocytes % 14.9 % (1.7-12.7); NRBC # 0.03 10*3/uL; Neutrophils % 70.3 % (38.7-73.9); Platelet Count 481 T/CUMM (130-400); White Blood Count 33.7 T/CUMM (4-12)
[2019-01-08 04:13] LABS: INR 0.9; PT Patient Result 10.1 SECS
[2019-01-08 04:26] LABS: Calcium 9.1 MG/DL (8.5-10.1); Osmolality,Calculated 296.7 MOS/KG (273-304)
[2019-01-08 04:39] LABS: Eosinophils 6 % (0-10); Lymphocytes 6 % (20-55); Segmented Neutrophils 76 % (50-85); Total Cells Counted 100
[2019-01-08 04:40] LABS: Hypochromasia 1+; Microcytosis 1+; Platelet Estimate Adequate
[2019-01-08 04:50] LABS: ABG Base Excess 0.5 MMOL/L (-2.5-2.5); ABG HCO3 24.9 MMOL/L (20-26); ABG Oxygen Saturation 98.9 % (95-100); ABG PCO2 39.1 MM HG (35-48); ABG PH 7.414 (7.35-7.45); ABG TCO2 23.3 MMOL/L (23-27); Allen Test Positive; Pt O2 Delivery Device Ventilator
[2019-01-08] MEDS ORDERED: SODIUM CHLORIDE 0.9% 250 ML IV SCH (08:00)
[2019-01-08] MEDS: ASPIRIN CHEW 81 MG TABLET PO SCH (08:07)
[2019-01-08] MEDS: hydrALAZINE 10 MG TABLET PO SCH ×3 (08:07→22:03)
[2019-01-08] MEDS: NEBIVOLOL 10 MG TABLET PO SCH (08:07)
[2019-01-08] MEDS: FERROUS SULFATE 325 MG TABLET PO SCH (08:07)
[2019-01-08] MEDS: amLODIPine 5 MG TABLET PO SCH (08:08)
[2019-01-08] MEDS: THIAMINE 100 MG TABLET PO SCH (08:08)
[2019-01-08] MEDS: CYANOCOBALAMIN 500 MCG TABLET PO SCH (08:08)
[2019-01-08] MEDS: FOLIC ACID 0.4 MG TABLET PO SCH (08:08)
[2019-01-08] MEDS ORDERED: LIDOCAINE 2% 5 ML VIAL ONE (10:00)
[2019-01-08] MEDS ORDERED: PROPOFOL 200 MG/20 ML VIAL IV ONE (10:00)
[2019-01-08] MEDS: MEROPENEM 500 MG in SODIUM CHLORIDE 0.9% 100 ML IV SCH (11:37)
[2019-01-08] MEDS ORDERED: EPOETIN ALFA 10,000 UNIT/1 ML VIAL IV PRN (14:35)
[2019-01-08] MEDS ORDERED: VANCOMYCIN INJ 750 MG in SODIUM CHLORIDE 0.9% 250 ML IV PRN (15:43)
[2019-01-08] MEDS: ENOXAPARIN 30 MG/0.3 ML SYRINGE SUBCUT SCH (15:50)
[2019-01-08] MEDS ORDERED: VANCOMYCIN INJ 750 MG in SODIUM CHLORIDE 0.9% 250 ML IV ONE (17:00)
[2019-01-08] MEDS: MORPHINE 4 MG/1 ML VIAL IV PRN (22:00)
[2019-01-08] MEDS: FAMOTIDINE 20 MG/2 ML VIAL IV SCH (23:40)
[2019-01-09] MEDS: ALBUTEROL/IPRATROPIUM 3 ML NEB RESP TX SCH ×3 (01:08→12:54)
[2019-01-09] MEDS: INSULIN REGULAR 100 UNIT/ML SUBCUT SCH ×3 (01:40→11:46)
[2019-01-09 04:04] LABS: Allen Test Positive; Pt O2 Delivery Device Ventilator
[2019-01-09 04:05] LABS: ABG Base Excess 3.9 MMOL/L (-2.5-2.5); ABG Oxygen Saturation 99.4 % (95-100); ABG PCO2 34.5 MM HG (35-48); ABG PH 7.503 (7.35-7.45); ABG TCO2 25.3 MMOL/L (23-27)
[2019-01-09] MEDS: PROPOFOL 1,000 MG/100 ML BOTTLE IV SCH (05:20)
[2019-01-09 05:39] LABS: Basophils # 0.2 10*3/uL (0.0-0.2); Basophils % 0.6 % (0.0-0.8); Eosinophils # 0.8 10*3/uL (0.0-0.87); Eosinophils % 2.5 % (0.00-10.9); Hematocrit 24.3 VOL% (35.7-47.0); Hemoglobin 7.7 GM/DL (12.0-16.0); Immature Granulocytes % 2.6 %; Immature Granulocytes Absolute 0.77 #; Lymphocytes # 3.4 10*3/uL (1.4-4.0); Lymphocytes % 11.3 % (21.3-54.2); Mean Corpuscular HGB Conc 31.7 GM/DL (32-36); Mean Corpuscular Volume 88.4 FL (87-102); Mean Platelet Volume 11.8 FL (9.6-12.0); Monocytes % 16.6 % (1.7-12.7); NRBC # 0.04 10*3/uL; Neutrophils % 66.4 % (38.7-73.9); Platelet Count 522 T/CUMM (130-400); Red Blood Count 2.75 MC/CUMM (3.8-5.5); Red Cell Distribution Width 16.7 % (9.3-17.3); White Blood Count 29.9 T/CUMM (4-12)
[2019-01-09 05:58] LABS: Calcium 9.4 MG/DL (8.5-10.1); Osmolality,Calculated 289.7 MOS/KG (273-304); Prealbumin 28.8 MG/DL (20-40)
[2019-01-09 06:13] LABS: Eosinophils 4 % (0-10); Lymphocytes 1 % (20-55); Segmented Neutrophils 78 % (50-85); Total Cells Counted 100
[2019-01-09 06:14] LABS: Hypochromasia Slight; Platelet Estimate Normal
[2019-01-09 06:18] VITALS: BP 123/69
[2019-01-09] MEDS: FERROUS SULFATE 325 MG TABLET PO SCH (08:35)
[2019-01-09] MEDS: ASPIRIN CHEW 81 MG TABLET PO SCH (08:35)
[2019-01-09] MEDS: THIAMINE 100 MG TABLET PO SCH (08:35)
[2019-01-09] MEDS: NEBIVOLOL 10 MG TABLET PO SCH (08:36)
[2019-01-09] MEDS: FOLIC ACID 0.4 MG TABLET PO SCH (08:36)
[2019-01-09] MEDS: hydrALAZINE 10 MG TABLET PO SCH (08:37)
[2019-01-09] MEDS: CYANOCOBALAMIN 500 MCG TABLET PO SCH (08:37)
[2019-01-09] MEDS: amLODIPine 5 MG TABLET PO SCH (08:37)
[2019-01-09] MEDS: MEROPENEM 500 MG in SODIUM CHLORIDE 0.9% 100 ML IV SCH (11:27)
== END 2019-01-09 12:56 | DRG 4 ==
LOC: N.ED 19:23 → N.CC 21:48 → SUATTDRO 21:50 → N.CC 23:05
PROVIDERS: ADMIT Family Medicine; ATTEND Internal Medicine
PROC: EGDWPEG (ICD-10-PCS; 2019-01-08 09:05)

== ENCOUNTER 2019-04-13 10:45 | Inpatient (IN) ==
[2019-04-13 15:00] LABS: Basophils # 0.1 10*3/uL (0.0-0.2); Basophils % 0.2 % (0.0-0.8); Eosinophils # 0.4 10*3/uL (0.0-0.87); Eosinophils % 1.6 % (0.00-10.9); Immature Granulocytes % 1.2 %; Immature Granulocytes Absolute 0.28 #; Lymphocytes % 24.9 % (21.3-54.2); Mean Corpuscular HGB Conc 34.6 GM/DL (32-36); Mean Corpuscular Volume 93.4 FL (87-102); Mean Platelet Volume 10.8 FL (9.6-12.0); Monocytes % 10.7 % (1.7-12.7); NRBC # 0.37 10*3/uL; Neutrophils % 61.4 % (38.7-73.9); Platelet Count 432 T/CUMM (130-400); Red Blood Count 1.67 MC/CUMM (3.8-5.5); Red Cell Distribution Width 17.9 % (9.3-17.3); White Blood Count 24.1 T/CUMM (4-12)
[2019-04-13 15:04] LABS: Hematocrit 15.6 VOL% (35.7-47.0); Hemoglobin 5.4 GM/DL (12.0-16.0)
[2019-04-13] MEDS ORDERED: HYDROmorphone 2 MG/1 ML VIAL IV STA (15:04)
[2019-04-13 15:22] LABS: Eosinophils 2 % (0-10); Hypochromasia 2+; Lymphocytes 25 % (20-55); Nucleated Red Blood Cells 1 (0-5); Segmented Neutrophils 64 % (50-85); Total Cells Counted 100
[2019-04-13 15:23] LABS: Anisocytosis 1+; Poikilocytosis Few; Sickle Cells 1+; Stomatocytes Few; Target Cells Few
[2019-04-13 15:24] LABS: Elliptocytes Few; Platelet Estimate Adequate; Polychromasia 1+
[2019-04-13 15:26] LABS: Calcium 8.9 MG/DL (8.5-10.1); Osmolality,Calculated 289.4 MOS/KG (273-304)
[2019-04-13] MEDS ORDERED: SODIUM CHLORIDE 0.9% 1,000 ML IV PRN (16:06)
[2019-04-13] MEDS ORDERED: PROMETHAZINE 25 MG/1 ML VIAL IM PRN (16:07)
[2019-04-13] MEDS ORDERED: ONDANSETRON 4 MG/2 ML VIAL IV PRN (16:07)
[2019-04-13] MEDS: POTASSIUM CHLORIDE RIDER 10 MEQ in PREMIX 1 EACH IV PRN (16:13)
[2019-04-13] MEDS ORDERED: MORPHINE 4 MG/1 ML VIAL IV PRN (16:24)
[2019-04-13 16:25] LABS: Albumin 3.2 G/DL (3.4-5.0); Bilirubin,Direct 0.42 MG/DL (0.0-0.20); Bilirubin,Indirect 0.9 MG/DL (0.0-1.0); Bilirubin,Total 1.3 MG/DL (0.2-1.0); Total Protein 6.8 G/DL (6.4-8.3)
[2019-04-13 17:27] LABS: Thyroid Stimulating Hormone 2.23 uIU/ml (0.358-3.74)
[2019-04-13] MEDS: PANTOPRAZOLE 40 MG VIAL IV SCH (21:22)
[2019-04-14 02:08] LABS: Basophils # 0.1 10*3/uL (0.0-0.2); Basophils % 0.5 % (0.0-0.8); Eosinophils # 0.4 10*3/uL (0.0-0.87); Eosinophils % 1.7 % (0.00-10.9); Hemoglobin 8.2 GM/DL (12.0-16.0); Immature Granulocytes % 0.8 %; Immature Granulocytes Absolute 0.18 #; Lymphocytes # 4.6 10*3/uL (1.4-4.0); Lymphocytes % 20.4 % (21.3-54.2); Mean Corpuscular HGB Conc 34.2 GM/DL (32-36); Mean Corpuscular Volume 93.8 FL (87-102); Mean Platelet Volume 10.5 FL (9.6-12.0); Monocytes % 9.1 % (1.7-12.7); NRBC # 0.66 10*3/uL; Neutrophils % 67.5 % (38.7-73.9); Platelet Count 396 T/CUMM (130-400); Red Blood Count 2.56 MC/CUMM (3.8-5.5); Red Cell Distribution Width 15.6 % (9.3-17.3); White Blood Count 22.5 T/CUMM (4-12)
[2019-04-14 02:17] LABS: PT Patient Result 10.7 SECS (9.6-12.2)
[2019-04-14 02:27] LABS: Calcium 8.3 MG/DL (8.5-10.1); Osmolality,Calculated 291.4 MOS/KG (273-304)
[2019-04-14 03:32] LABS: Hypochromasia 2+; Platelet Estimate Normal; Stomatocytes Few; Target Cells Few
[2019-04-14 03:33] LABS: Polychromasia 1+
[2019-04-14 03:37] LABS: Ovalocytes Few
[2019-04-14] MEDS: POTASSIUM CHLORIDE RIDER 10 MEQ in PREMIX 1 EACH IV PRN ×2 (04:38→05:49)
[2019-04-14] MEDS: PANTOPRAZOLE 40 MG VIAL IV SCH (09:40)
[2019-04-14] MEDS: NEBIVOLOL 5 MG TABLET PO SCH (09:46)
[2019-04-14] MEDS: diphenhydrAMINE CAP 25 MG CAPSULE PO PRN ×2 (09:46→23:02)
[2019-04-14] MEDS: SEVELAMER CARBONATE 800 MG TABLET PO SCH ×2 (18:39→20:40)
[2019-04-14] MEDS ORDERED: hydrOXYzine HCL 25 MG TABLET PO PRN (20:11)
[2019-04-15 05:42] LABS: Basophils # 0.1 10*3/uL (0.0-0.2); Basophils % 0.4 % (0.0-0.8); Eosinophils # 0.8 10*3/uL (0.0-0.87); Eosinophils % 3.9 % (0.00-10.9); Hematocrit 24.4 VOL% (35.7-47.0); Hemoglobin 8.2 GM/DL (12.0-16.0); Immature Granulocytes % 0.8 %; Immature Granulocytes Absolute 0.16 #; Lymphocytes # 2.6 10*3/uL (1.4-4.0); Lymphocytes % 13.4 % (21.3-54.2); Mean Corpuscular HGB Conc 33.6 GM/DL (32-36); Mean Corpuscular Volume 95.7 FL (87-102); Mean Platelet Volume 10.9 FL (9.6-12.0); Monocytes % 11.3 % (1.7-12.7); NRBC # 2.45 10*3/uL; Neutrophils % 70.2 % (38.7-73.9); Platelet Count 298 T/CUMM (130-400); Red Blood Count 2.55 MC/CUMM (3.8-5.5); White Blood Count 19.1 T/CUMM (4-12)
[2019-04-15 05:56] LABS: Calcium 8.4 MG/DL (8.5-10.1); Osmolality,Calculated 278.7 MOS/KG (273-304)
[2019-04-15 06:07] LABS: Folate 13.8 NG/ML (5.4-24.0); Vitamin B12 > 2000 PG/ML (211-911)
[2019-04-15 06:12] LABS: Eosinophils 2 % (0-10); Hypochromasia 1+; Lymphocytes 6 % (20-55); Nucleated Red Blood Cells 21 (0-5); Ovalocytes Slight; Platelet Estimate Adequate; Segmented Neutrophils 80 % (50-85); Total Cells Counted 100
[2019-04-15 06:49] LABS: Sedimentation Rate-Westergren 59 MM/HR (0-30)
[2019-04-15] MEDS: NEBIVOLOL 5 MG TABLET PO SCH (08:47)
[2019-04-15] MEDS: SEVELAMER CARBONATE 800 MG TABLET PO SCH ×2 (08:49→14:30)
[2019-04-15] MEDS ORDERED: FAMOTIDINE 20 MG TABLET PO SCH (09:00)
[2019-04-15] MEDS ORDERED: MULTIVITAMIN (BEROCCA) TABLET PO SCH (09:00)
[2019-04-15] MEDS ORDERED: QUEtiapine 25 MG TABLET PO SCH (09:00)
[2019-04-15] MEDS ORDERED: PROPOFOL 200 MG/20 ML VIAL IV ONE (09:30)
[2019-04-15] MEDS ORDERED: LIDOCAINE 100 MG/5 ML SYRINGE ONE (09:30)
[2019-04-15] MEDS ORDERED: NEBIVOLOL 5 MG TABLET PO SCH (09:52)
[2019-04-15 12:26] VITALS: BP 161/70
[2019-04-15] MEDS ORDERED: PANTOPRAZOLE 40 MG TABLET PO SCH (21:00)
[2019-04-16] MEDS ORDERED: EPOETIN ALFA 2,000 UNIT/1 ML VIAL SUBCUT SCH (09:00)
[2019-04-17 10:18] LABS: Hemoglobin A1 (Alkaline) 68.3 % (96.5-98.5); Hemoglobin A2 (Alkaline) 2.3 % (1.5-3.5); Hemoglobin S (Alkaline) 23.4 %
== END 2019-04-15 15:56 | disposition home health service (06) | DRG 811 ==
LOC: N.ED 10:45 → SUATTDRO 16:07 → N.EDINP 16:07 → N.3E 16:56
PROVIDERS: ADMIT Internal Medicine Cardiovascular Disease; ATTEND Family Medicine

== ENCOUNTER 2019-05-10 09:04 | Inpatient (IN) ==
[2019-05-10 10:37] LABS: Basophils # 0.1 10*3/uL (0.0-0.2); Basophils % 0.4 % (0.0-0.8); Eosinophils # 0.3 10*3/uL (0.0-0.87); Eosinophils % 1.5 % (0.00-10.9); Immature Granulocytes % 0.6 %; Immature Granulocytes Absolute 0.13 #; Lymphocytes # 4.9 10*3/uL (1.4-4.0); Lymphocytes % 23.3 % (21.3-54.2); Mean Corpuscular HGB Conc 35.1 GM/DL (32-36); Mean Corpuscular Volume 92.1 FL (87-102); Mean Platelet Volume 10.2 FL (9.6-12.0); Monocytes % 12.4 % (1.7-12.7); NRBC # 0.05 10*3/uL; Neutrophils % 61.8 % (38.7-73.9); Platelet Count 402 T/CUMM (130-400); Red Blood Count 1.64 MC/CUMM (3.8-5.5); Red Cell Distribution Width 16.5 % (9.3-17.3)
[2019-05-10 10:42] LABS: Hemoglobin 5.3 GM/DL (12.0-16.0)
[2019-05-10 10:43] LABS: Hematocrit 15.1 VOL% (35.7-47.0)
[2019-05-10 10:56] LABS: Albumin 3.1 G/DL (3.4-5.0); Calcium 8.5 MG/DL (8.5-10.1); Osmolality,Calculated 285.3 MOS/KG (273-304); Total Protein 6.9 G/DL (6.4-8.3)
[2019-05-10 11:07] LABS: Eosinophils 3 % (0-10); Hypochromasia 1+; Lymphocytes 20 % (20-55); Segmented Neutrophils 66 % (50-85); Total Cells Counted 100
[2019-05-10 11:08] LABS: Anisocytosis 1+; Microcytosis 1+; Polychromasia Slight
[2019-05-10 11:10] LABS: Ovalocytes Slight; Pappenheimer Bodies Slight
[2019-05-10 11:11] LABS: Target Cells Few
[2019-05-10 11:25] LABS: Platelet Estimate Increased
[2019-05-10] MEDS ORDERED: SODIUM CHLORIDE 0.9% 1,000 ML IV PRN ×2 (11:27→11:55)
[2019-05-10] MEDS ORDERED: ACETAMINOPHEN 325 MG TABLET PO PRN (11:50)
[2019-05-10] MEDS ORDERED: ONDANSETRON 4 MG/2 ML VIAL IV PRN (11:50)
[2019-05-10] MEDS ORDERED: hydrOXYzine HCL 25 MG TABLET PO PRN (12:19)
[2019-05-10] MEDS ORDERED: traMADol 50 MG TABLET PO ONE (13:20)
[2019-05-10] MEDS ORDERED: HYDROmorphone 2 MG/1 ML VIAL IV PRN (13:38)
[2019-05-10] MEDS: SEVELAMER CARBONATE 800 MG TABLET PO SCH ×2 (14:47→21:52)
[2019-05-11 05:51] LABS: Calcium 8.5 MG/DL (8.5-10.1); Osmolality,Calculated 278.5 MOS/KG (273-304)
[2019-05-11 07:12] VITALS: BP 154/76
[2019-05-11 08:09] LABS: Basophils # 0.1 10*3/uL (0.0-0.2); Basophils % 0.5 % (0.0-0.8); Eosinophils # 0.4 10*3/uL (0.0-0.87); Eosinophils % 2.3 % (0.00-10.9); Hematocrit 24.8 VOL% (35.7-47.0); Immature Granulocytes % 0.6 %; Immature Granulocytes Absolute 0.12 #; Lymphocytes # 3.5 10*3/uL (1.4-4.0); Lymphocytes % 18.6 % (21.3-54.2); Mean Corpuscular HGB Conc 34.7 GM/DL (32-36); Mean Corpuscular Volume 88.3 FL (87-102); Mean Platelet Volume 11.9 FL (9.6-12.0); Monocytes % 12.7 % (1.7-12.7); NRBC # 0.07 10*3/uL; Neutrophils % 65.3 % (38.7-73.9); Red Cell Distribution Width 17.2 % (9.3-17.3); White Blood Count 18.8 T/CUMM (4-12)
[2019-05-11 08:15] LABS: Red Blood Count 2.81 MC/CUMM (3.8-5.5)
[2019-05-11 08:16] LABS: Hemoglobin 8.6 GM/DL (12.0-16.0); Platelet Count 118 T/CUMM (130-400)
[2019-05-11] MEDS: SEVELAMER CARBONATE 800 MG TABLET PO SCH (08:54)
[2019-05-11] MEDS ORDERED: MULTIVITAMIN (BEROCCA) TABLET PO SCH (09:00)
[2019-05-11] MEDS ORDERED: NEBIVOLOL 5 MG TABLET PO SCH (09:00)
[2019-05-11] MEDS ORDERED: PANTOPRAZOLE 40 MG TABLET PO SCH (09:00)
[2019-05-11] MEDS ORDERED: QUEtiapine 25 MG TABLET PO SCH (09:00)
== END 2019-05-11 13:34 | disposition home or self-care (01) | DRG 811 ==
LOC: N.ED 09:04 → N.EDINP 11:50 → N.5E 12:24
PROVIDERS: ADMIT Internal Medicine Cardiovascular Disease; ATTEND Internal Medicine Cardiovascular Disease

== ENCOUNTER 2019-06-11 06:40 | Observation (INO) ==
[2019-06-11] MEDS ORDERED: ALUM/MAG/SIMETH/LIDO VISC 1:1 30 ML BOTTLE PO STA (06:54)
[2019-06-11 07:37] LABS: Basophils # 0.1 10*3/uL (0.0-0.2); Basophils % 0.4 % (0.0-0.8); Eosinophils # 0.3 10*3/uL (0.0-0.87); Eosinophils % 1.6 % (0.00-10.9); Hematocrit 19.9 VOL% (35.7-47.0); Hemoglobin 6.8 GM/DL (12.0-16.0); Immature Granulocytes % 0.7 %; Immature Granulocytes Absolute 0.12 #; Lymphocytes # 2.9 10*3/uL (1.4-4.0); Lymphocytes % 16.3 % (21.3-54.2); Mean Corpuscular HGB Conc 34.2 GM/DL (32-36); Mean Corpuscular Volume 93.9 FL (87-102); Mean Platelet Volume 10.5 FL (9.6-12.0); Monocytes % 14.8 % (1.7-12.7); NRBC # 2.46 10*3/uL; Neutrophils % 66.2 % (38.7-73.9); Platelet Count 372 T/CUMM (130-400); Red Blood Count 2.12 MC/CUMM (3.8-5.5); Red Cell Distribution Width 22.8 % (9.3-17.3)
[2019-06-11 07:42] LABS: Bilirubin,Total 2.4 MG/DL (0.2-1.0); Calcium 9.1 MG/DL (8.5-10.1); Osmolality,Calculated 266.5 MOS/KG (273-304); Total Protein 6.7 G/DL (6.4-8.3)
[2019-06-11 08:27] LABS: Anisocytosis 3+; Band Neutrophils 2 % (0-10); Eosinophils 2 % (0-10); Lymphocytes 15 % (20-55); Macrocytosis 1+; Nucleated Red Blood Cells 18 (0-5); Platelet Estimate Normal; Poikilocytosis Slight; Segmented Neutrophils 64 % (50-85); Total Cells Counted 100
[2019-06-11 08:28] LABS: Polychromasia 1+; Target Cells Few
[2019-06-11] MEDS ORDERED: hydrOXYzine HCL 25 MG TABLET PO STA (08:56)
[2019-06-11] MEDS ORDERED: SODIUM CHLORIDE 0.9% 1,000 ML IV PRN (09:01)
[2019-06-11] MEDS ORDERED: MORPHINE 4 MG/1 ML VIAL IV PRN (09:01)
[2019-06-11] MEDS ORDERED: LACTULOSE 20 GM/30 ML UDCUP PO PRN (09:01)
[2019-06-11] MEDS ORDERED: ONDANSETRON 4 MG/2 ML VIAL IV PRN (09:01)
[2019-06-11] MEDS ORDERED: PANTOPRAZOLE 40 MG TABLET PO SCH (09:30)
[2019-06-11] MEDS: DOCUSATE SODIUM 100 MG CAPSULE PO SCH ×2 (11:15→20:21)
[2019-06-11 16:57] LABS: Hemoglobin 7.9 GM/DL (12.0-16.0)
[2019-06-11] MEDS: PANTOPRAZOLE 40 MG TABLET PO SCH (20:21)
[2019-06-12 06:05] LABS: Basophils % 0.3 % (0.0-0.8); Eosinophils # 0.2 10*3/uL (0.0-0.87); Eosinophils % 1.5 % (0.00-10.9); Hematocrit 22.8 VOL% (35.7-47.0); Hemoglobin 8.1 GM/DL (12.0-16.0); Immature Granulocytes % 0.6 %; Immature Granulocytes Absolute 0.09 #; Lymphocytes # 1.5 10*3/uL (1.4-4.0); Lymphocytes % 9.2 % (21.3-54.2); Mean Corpuscular HGB Conc 35.5 GM/DL (32-36); Mean Corpuscular Volume 90.8 FL (87-102); Mean Platelet Volume 11.1 FL (9.6-12.0); Monocytes % 13.6 % (1.7-12.7); NRBC # 2.12 10*3/uL; Neutrophils % 74.8 % (38.7-73.9); Platelet Count 304 T/CUMM (130-400); Red Blood Count 2.51 MC/CUMM (3.8-5.5); Red Cell Distribution Width 21.6 % (9.3-17.3); White Blood Count 15.8 T/CUMM (4-12)
[2019-06-12 06:30] LABS: Bilirubin,Total 2.6 MG/DL (0.2-1.0); Calcium 8.9 MG/DL (8.5-10.1); Osmolality,Calculated 272.4 MOS/KG (273-304); Risk Ratio 3.07; Thyroid Stimulating Hormone 1.8 uIU/ml (0.358-3.74); Total Protein 6.5 G/DL (6.4-8.3); VLDL CHOLESTEROL 16.6 MG/DL
[2019-06-12 06:49] LABS: Eosinophils 2 % (0-10); Lymphocytes 9 % (20-55); Nucleated Red Blood Cells 16 (0-5); Segmented Neutrophils 71 % (50-85); Total Cells Counted 100
[2019-06-12 06:50] LABS: Platelet Estimate Increased
[2019-06-12 06:55] LABS: Pappenheimer Bodies 2+
[2019-06-12 06:56] LABS: Anisocytosis 2+; Basophilic Stippling 1+; Hypochromasia 2+; Macrocytosis 2+; Ovalocytes 1+; Target Cells 2+
[2019-06-12] MEDS: PANTOPRAZOLE 40 MG TABLET PO SCH (08:37)
[2019-06-12] MEDS: DOCUSATE SODIUM 100 MG CAPSULE PO SCH (08:37)
[2019-06-12 12:50] VITALS: BP 138/74
== END 2019-06-12 16:00 | disposition home or self-care (01) ==
LOC: N.EDINP 06:40 → N.ED 06:40 → N.2W 09:29
PROVIDERS: ADMIT Internal Medicine; ATTEND Internal Medicine

== ENCOUNTER 2019-07-05 12:48 | Inpatient (IN) ==
[2019-07-05] MEDS ORDERED: SODIUM CHLORIDE 0.9% 1,000 ML IV STA (14:24)
[2019-07-05 14:31] LABS: Basophils # 0.1 10*3/uL (0.0-0.2); Basophils % 0.4 % (0.0-0.8); Eosinophils # 0.4 10*3/uL (0.0-0.87); Eosinophils % 2.5 % (0.00-10.9); Immature Granulocytes % 0.6 %; Lymphocytes # 3.3 10*3/uL (1.4-4.0); Lymphocytes % 19.7 % (21.3-54.2); Mean Corpuscular HGB Conc 34.9 GM/DL (32-36); Mean Corpuscular Volume 91.4 FL (87-102); Mean Platelet Volume 10.3 FL (9.6-12.0); Monocytes % 18.3 % (1.7-12.7); Neutrophils % 58.5 % (38.7-73.9); Platelet Count 283 T/CUMM (130-400); Red Blood Count 1.85 MC/CUMM (3.8-5.5); Red Cell Distribution Width 23.1 % (9.3-17.3); White Blood Count 16.7 T/CUMM (4-12)
[2019-07-05 14:33] LABS: Hematocrit 16.9 VOL% (35.7-47.0); Hemoglobin 5.9 GM/DL (12.0-16.0)
[2019-07-05 14:48] LABS: Albumin 2.8 G/DL (3.4-5.0); Bilirubin,Total 2.4 MG/DL (0.2-1.0); Calcium 8.4 MG/DL (8.5-10.1); Osmolality,Calculated 289.7 MOS/KG (273-304); Total Protein 6.6 G/DL (6.4-8.3)
[2019-07-05 15:34] LABS: Lymphocytes 17 % (20-55); Segmented Neutrophils 78 % (50-85); Total Cells Counted 100
[2019-07-05 15:35] LABS: Anisocytosis 3+; Atypical Lymphocytes 1+; Hypochromasia 2+; Ovalocytes 1+; Sickle Cells 2+
[2019-07-05] MEDS ORDERED: SODIUM CHLORIDE 0.9% 1,000 ML IV PRN (17:12)
[2019-07-05] MEDS ORDERED: cefTRIAXone 1,000 MG in SYRINGE 1 EACH IV SCH ×2 (17:30→18:30)
[2019-07-05] MEDS ORDERED: ALBUTEROL 2.5 MG/3 ML NEB RESP TX PRN (18:08)
[2019-07-05] MEDS ORDERED: VANCOMYCIN INJ 750 MG in SODIUM CHLORIDE 0.9% 250 ML IV PRN (18:26)
[2019-07-05] MEDS: ALBUTEROL/IPRATROPIUM 3 ML NEB RESP TX SCH (19:55)
[2019-07-05] MEDS: MORPHINE IR 15 MG TABLET PO SCH (20:13)
[2019-07-05] MEDS: LACTOBACILLUS RHAMNOSUS GG CAPSULE PO SCH (20:13)
[2019-07-05] MEDS ORDERED: VANCOMYCIN INJ 1,750 MG in SODIUM CHLORIDE 0.9% 500 ML IV ONE (22:00)
[2019-07-06] MEDS ORDERED: AZITHROMYCIN INJ 500 MG in SODIUM CHLORIDE 0.9% 250 ML IV SCH
[2019-07-06] MEDS: ALBUTEROL/IPRATROPIUM 3 ML NEB RESP TX SCH ×6 (01:10→19:43)
[2019-07-06 05:03] LABS: Basophils # 0.1 10*3/uL (0.0-0.2); Basophils % 0.6 % (0.0-0.8); Eosinophils # 0.6 10*3/uL (0.0-0.87); Eosinophils % 3.2 % (0.00-10.9); Hematocrit 23.9 VOL% (35.7-47.0); Hemoglobin 8.4 GM/DL (12.0-16.0); Immature Granulocytes % 0.5 %; Immature Granulocytes Absolute 0.09 #; Lymphocytes # 4.1 10*3/uL (1.4-4.0); Mean Corpuscular HGB Conc 35.1 GM/DL (32-36); Mean Corpuscular Volume 92.3 FL (87-102); Mean Platelet Volume 10.4 FL (9.6-12.0); Monocytes % 17.4 % (1.7-12.7); NRBC # 0.11 10*3/uL; Neutrophils % 56.3 % (38.7-73.9); Platelet Count 296 T/CUMM (130-400); Red Blood Count 2.59 MC/CUMM (3.8-5.5); Red Cell Distribution Width 19.2 % (9.3-17.3); White Blood Count 18.7 T/CUMM (4-12)
[2019-07-06 05:40] LABS: Anisocytosis 1+; Eosinophils 6 % (0-10); Hypochromasia 2+; Lymphocytes 20 % (20-55); Macrocytosis 1+; Nucleated Red Blood Cells 3 (0-5); Segmented Neutrophils 60 % (50-85); Total Cells Counted 100
[2019-07-06 05:41] LABS: Ovalocytes Few; Target Cells Few
[2019-07-06 05:42] LABS: Sickle Cells Slight
[2019-07-06 05:43] LABS: Pappenheimer Bodies Few; Polychromasia Slight
[2019-07-06 05:44] LABS: Platelet Estimate Normal
[2019-07-06 06:02] LABS: Bilirubin,Total 1.9 MG/DL (0.2-1.0); Calcium 8.7 MG/DL (8.5-10.1)
[2019-07-06 06:03] LABS: Albumin 2.8 G/DL (3.4-5.0); Osmolality,Calculated 289.5 MOS/KG (273-304); Total Protein 6.7 G/DL (6.4-8.3)
[2019-07-06] MEDS ORDERED: VANCOMYCIN INJ 1,750 MG in SODIUM CHLORIDE 0.9% 500 ML IV ONE (06:30)
[2019-07-06] MEDS: MORPHINE IR 15 MG TABLET PO SCH ×2 (08:21→20:15)
[2019-07-06] MEDS: LACTOBACILLUS RHAMNOSUS GG CAPSULE PO SCH ×2 (08:21→20:15)
[2019-07-06] MEDS: MULTIVITAMIN (BEROCCA) TABLET PO SCH (08:21)
[2019-07-06] MEDS: PANTOPRAZOLE 40 MG TABLET PO SCH (08:21)
[2019-07-06] MEDS: NEBIVOLOL 5 MG TABLET PO SCH (08:21)
[2019-07-06] MEDS: SEVELAMER CARBONATE 800 MG TABLET PO SCH ×3 (08:22→16:12)
[2019-07-06] MEDS: QUEtiapine 25 MG TABLET PO SCH (08:22)
[2019-07-06] MEDS: PIPERACILLIN/TAZOBACTAM 3,375 MG in SODIUM CHLORIDE 0.9% 100 ML IV SCH ×2 (08:26→20:15)
[2019-07-06] MEDS: hydrOXYzine HCL 25 MG TABLET PO PRN ×2 (08:54→20:15)
[2019-07-06] MEDS ORDERED: PANTOPRAZOLE 40 MG TABLET PO SCH (09:00)
[2019-07-06] MEDS ORDERED: AZITHROMYCIN 250 MG TABLET PO SCH (09:00)
[2019-07-06] MEDS: ONDANSETRON 4 MG/2 ML VIAL IV PRN (22:22)
[2019-07-07] MEDS: ALBUTEROL/IPRATROPIUM 3 ML NEB RESP TX SCH ×7 (00:05→23:27)
[2019-07-07 04:31] LABS: Basophils # 0.1 10*3/uL (0.0-0.2); Basophils % 0.3 % (0.0-0.8); Eosinophils # 0.8 10*3/uL (0.0-0.87); Eosinophils % 4.3 % (0.00-10.9); Hematocrit 24.2 VOL% (35.7-47.0); Hemoglobin 8.3 GM/DL (12.0-16.0); Immature Granulocytes % 0.6 %; Immature Granulocytes Absolute 0.11 #; Lymphocytes # 3.3 10*3/uL (1.4-4.0); Lymphocytes % 17.2 % (21.3-54.2); Mean Corpuscular HGB Conc 34.3 GM/DL (32-36); Mean Corpuscular Volume 95.3 FL (87-102); Mean Platelet Volume 10.5 FL (9.6-12.0); NRBC # 0.48 10*3/uL; Neutrophils % 61.6 % (38.7-73.9); Platelet Count 312 T/CUMM (130-400); Red Blood Count 2.54 MC/CUMM (3.8-5.5); Red Cell Distribution Width 19.6 % (9.3-17.3); White Blood Count 18.9 T/CUMM (4-12)
[2019-07-07 04:54] LABS: Albumin 2.8 G/DL (3.4-5.0); Bilirubin,Total 1.7 MG/DL (0.2-1.0); Calcium 8.2 MG/DL (8.5-10.1); Osmolality,Calculated 297.5 MOS/KG (273-304); Total Protein 6.9 G/DL (6.4-8.3)
[2019-07-07 04:55] LABS: Eosinophils 3 % (0-10); Lymphocytes 13 % (20-55); Macrocytosis Slight; Nucleated Red Blood Cells 3 (0-5); Pappenheimer Bodies Slight; Platelet Estimate Adequate; Polychromasia Slight; Segmented Neutrophils 69 % (50-85); Total Cells Counted 100
[2019-07-07 04:56] LABS: Howell-Jolly Bodies Slight; Hypochromasia 1+
[2019-07-07 04:57] LABS: Helmet Cells Few
[2019-07-07] MEDS: SEVELAMER CARBONATE 800 MG TABLET PO SCH ×3 (08:37→18:35)
[2019-07-07] MEDS: LACTOBACILLUS RHAMNOSUS GG CAPSULE PO SCH ×2 (08:37→20:50)
[2019-07-07] MEDS: MULTIVITAMIN (BEROCCA) TABLET PO SCH (08:37)
[2019-07-07] MEDS: PIPERACILLIN/TAZOBACTAM 3,375 MG in SODIUM CHLORIDE 0.9% 100 ML IV SCH ×2 (08:37→22:39)
[2019-07-07] MEDS: MORPHINE IR 15 MG TABLET PO SCH ×2 (08:37→20:50)
[2019-07-07] MEDS: QUEtiapine 25 MG TABLET PO SCH (08:37)
[2019-07-07] MEDS: PANTOPRAZOLE 40 MG TABLET PO SCH (08:37)
[2019-07-07] MEDS: NEBIVOLOL 5 MG TABLET PO SCH (08:37)
[2019-07-07] MEDS: hydrOXYzine HCL 25 MG TABLET PO PRN (09:20)
[2019-07-07] MEDS: ONDANSETRON 4 MG/2 ML VIAL IV PRN (13:23)
[2019-07-07] MEDS ORDERED: VANCOMYCIN INJ 750 MG in SODIUM CHLORIDE 0.9% 250 ML IV ONE (17:00)
[2019-07-08] MEDS: ALBUTEROL/IPRATROPIUM 3 ML NEB RESP TX SCH ×3 (03:10→11:25)
[2019-07-08 05:12] LABS: Basophils # 0.1 10*3/uL (0.0-0.2); Basophils % 0.4 % (0.0-0.8); Eosinophils # 0.7 10*3/uL (0.0-0.87); Eosinophils % 3.6 % (0.00-10.9); Hematocrit 24.7 VOL% (35.7-47.0); Hemoglobin 8.3 GM/DL (12.0-16.0); Immature Granulocytes % 0.7 %; Immature Granulocytes Absolute 0.14 #; Lymphocytes # 2.2 10*3/uL (1.4-4.0); Lymphocytes % 10.8 % (21.3-54.2); Mean Corpuscular HGB Conc 33.6 GM/DL (32-36); Mean Corpuscular Volume 98.8 FL (87-102); Mean Platelet Volume 11.5 FL (9.6-12.0); Monocytes % 16.7 % (1.7-12.7); NRBC # 2.09 10*3/uL; Neutrophils % 67.8 % (38.7-73.9); Platelet Count 230 T/CUMM (130-400); Red Cell Distribution Width 19.8 % (9.3-17.3); White Blood Count 20.5 T/CUMM (4-12)
[2019-07-08 05:18] LABS: Albumin 2.9 G/DL (3.4-5.0); Bilirubin,Total 1.7 MG/DL (0.2-1.0); Calcium 8.4 MG/DL (8.5-10.1); Osmolality,Calculated 280.1 MOS/KG (273-304); Total Protein 7.2 G/DL (6.4-8.3)
[2019-07-08 05:39] LABS: Eosinophils 5 % (0-10); Howell-Jolly Bodies Slight; Hypochromasia 1+; Lymphocytes 9 % (20-55); Macrocytosis Slight; Nucleated Red Blood Cells 20 (0-5); Pappenheimer Bodies Slight; Platelet Estimate Adequate; Polychromasia Slight; Segmented Neutrophils 64 % (50-85); Target Cells Few; Total Cells Counted 100
[2019-07-08 05:41] LABS: Sickle Cells Slight
[2019-07-08] MEDS: LACTOBACILLUS RHAMNOSUS GG CAPSULE PO SCH ×2 (08:34→21:43)
[2019-07-08] MEDS: MORPHINE IR 15 MG TABLET PO SCH ×2 (08:34→21:42)
[2019-07-08] MEDS: QUEtiapine 25 MG TABLET PO SCH (08:34)
[2019-07-08] MEDS: hydrOXYzine HCL 25 MG TABLET PO PRN (08:34)
[2019-07-08] MEDS: SEVELAMER CARBONATE 800 MG TABLET PO SCH ×3 (08:34→17:09)
[2019-07-08] MEDS: MULTIVITAMIN (BEROCCA) TABLET PO SCH (08:34)
[2019-07-08] MEDS: NEBIVOLOL 5 MG TABLET PO SCH ×2 (08:34→21:43)
[2019-07-08] MEDS: PANTOPRAZOLE 40 MG TABLET PO SCH (08:34)
[2019-07-08] MEDS: ONDANSETRON 4 MG/2 ML VIAL IV PRN ×2 (08:35→13:09)
[2019-07-08] MEDS: PIPERACILLIN/TAZOBACTAM 3,375 MG in SODIUM CHLORIDE 0.9% 100 ML IV SCH (08:57)
[2019-07-08] MEDS ORDERED: BISACODYL 10 MG SUPP RECTAL ONE (09:30)
[2019-07-08] MEDS: POLYETHYLENE GLYCOL POWDER 17 GM PACK PO SCH ×2 (09:46→21:42)
[2019-07-08] MEDS ORDERED: METOPROLOL TARTRATE 5 MG/5 ML VIAL IV ONE (12:39)
[2019-07-08] MEDS: ASPIRIN CHEW 81 MG TABLET PO SCH (13:06)
[2019-07-08] MEDS: METOPROLOL TARTRATE 5 MG/5 ML VIAL IV SCH ×5 (14:29→17:10)
[2019-07-08] MEDS: DILTIAZEM 30 MG TABLET PO SCH ×3 (14:51→21:45)
[2019-07-08] MEDS: LEVALBUTEROL 0.63 MG/3 ML NEB RESP TX SCH ×2 (15:51→19:09)
[2019-07-09] MEDS: LEVALBUTEROL 0.63 MG/3 ML NEB RESP TX SCH ×7 (00:05→22:44)
[2019-07-09] MEDS: SEVELAMER CARBONATE 800 MG TABLET PO SCH ×3 (10:27→18:45)
[2019-07-09] MEDS: ASPIRIN CHEW 81 MG TABLET PO SCH (10:27)
[2019-07-09] MEDS: DILTIAZEM 30 MG TABLET PO SCH ×4 (10:28→21:59)
[2019-07-09] MEDS: NEBIVOLOL 5 MG TABLET PO SCH (11:27)
[2019-07-09] MEDS: LACTOBACILLUS RHAMNOSUS GG CAPSULE PO SCH ×2 (12:09→21:58)
[2019-07-09] MEDS: POLYETHYLENE GLYCOL POWDER 17 GM PACK PO SCH ×2 (12:09→21:59)
[2019-07-09] MEDS: MULTIVITAMIN (BEROCCA) TABLET PO SCH (12:09)
[2019-07-09] MEDS: PANTOPRAZOLE 40 MG TABLET PO SCH (12:10)
[2019-07-09] MEDS ORDERED: DIGOXIN 0.5 MG/2 ML AMP IV ONE (12:41)
[2019-07-09] MEDS ORDERED: VANCOMYCIN INJ 750 MG in SODIUM CHLORIDE 0.9% 250 ML IV PRN (17:22)
[2019-07-09 17:30] LABS: ABG Base Excess 2.1 MMOL/L (-2.5-2.5); ABG HCO3 26.3 MMOL/L (20-26); ABG Oxygen Saturation 98.3 % (95-100); ABG PCO2 67.1 MM HG (35-48); ABG PH 7.263 (7.35-7.45); ABG TCO2 28.7 MMOL/L (23-27)
[2019-07-09] MEDS: MEROPENEM 500 MG in SODIUM CHLORIDE 0.9% 100 ML IV SCH (19:29)
[2019-07-09] MEDS ORDERED: VANCOMYCIN INJ 1,500 MG in SODIUM CHLORIDE 0.9% 500 ML IV ONE (20:00)
[2019-07-10] MEDS: DILTIAZEM 30 MG TABLET PO SCH (01:08)
[2019-07-10] MEDS: LEVALBUTEROL 0.63 MG/3 ML NEB RESP TX SCH ×5 (02:31→23:19)
[2019-07-10 05:45] LABS: Basophils # 0.1 10*3/uL (0.0-0.2); Basophils % 0.3 % (0.0-0.8); Eosinophils # 0.5 10*3/uL (0.0-0.87); Eosinophils % 2.4 % (0.00-10.9); Hematocrit 22.2 VOL% (35.7-47.0); Hemoglobin 7.4 GM/DL (12.0-16.0); Immature Granulocytes % 0.6 %; Immature Granulocytes Absolute 0.11 #; Lymphocytes # 1.8 10*3/uL (1.4-4.0); Lymphocytes % 9.6 % (21.3-54.2); Mean Corpuscular HGB Conc 33.3 GM/DL (32-36); Mean Corpuscular Volume 99.6 FL (87-102); Mean Platelet Volume 10.9 FL (9.6-12.0); Monocytes % 14.7 % (1.7-12.7); NRBC # 3.57 10*3/uL; Neutrophils % 72.4 % (38.7-73.9); Platelet Count 249 T/CUMM (130-400); Red Blood Count 2.23 MC/CUMM (3.8-5.5); Red Cell Distribution Width 19.9 % (9.3-17.3); White Blood Count 18.7 T/CUMM (4-12)
[2019-07-10 05:52] LABS: Calcium 8.2 MG/DL (8.5-10.1); Osmolality,Calculated 295.8 MOS/KG (273-304)
[2019-07-10 06:09] LABS: Eosinophils 4 % (0-10); Hypochromasia 1+; Lymphocytes 10 % (20-55); Nucleated Red Blood Cells 31 (0-5); Ovalocytes Slight; Platelet Estimate Adequate; Segmented Neutrophils 76 % (50-85); Total Cells Counted 100
[2019-07-10 06:10] LABS: Howell-Jolly Bodies Slight; Macrocytosis Slight; Pappenheimer Bodies Slight; Polychromasia Slight
[2019-07-10 06:12] LABS: Sickle Cells Slight; Target Cells Few
[2019-07-10] MEDS ORDERED: HEPARIN 1,000 UNIT/1 ML VIAL ONE (08:14)
[2019-07-10] MEDS ORDERED: NOREPINEPHRINE 8 MG in SODIUM CHLORIDE 0.9% 242 ML IV PRN (09:56)
[2019-07-10] MEDS ORDERED: SODIUM CHLORIDE 0.9% 1,000 ML IV PRN (10:01)
[2019-07-10 10:02] LABS: Glucose,CSF 79 MG/DL (40-70)
[2019-07-10 10:09] LABS: Appearance,CSF Clear
[2019-07-10 10:10] LABS: Lymphocytes,CSF 20 %; Monocytes,CSF 40 %; Neutrophils,CSF 40 %; Red Blood Cell,CSF 7 C/CUMM; White Blood Cell,CSF 5 C/CUMM
[2019-07-10] MEDS: LACTOBACILLUS RHAMNOSUS GG CAPSULE PO SCH ×2 (10:26→21:36)
[2019-07-10] MEDS: SEVELAMER CARBONATE 800 MG TABLET PO SCH ×3 (10:26→17:30)
[2019-07-10] MEDS: MULTIVITAMIN (BEROCCA) TABLET PO SCH (10:26)
[2019-07-10] MEDS: POLYETHYLENE GLYCOL POWDER 17 GM PACK PO SCH ×2 (10:26→21:36)
[2019-07-10] MEDS: PANTOPRAZOLE 40 MG TABLET PO SCH (10:27)
[2019-07-10] MEDS ORDERED: DIGOXIN 0.5 MG/2 ML AMP IV ONE (12:11)
[2019-07-10] MEDS ORDERED: METOPROLOL TARTRATE 5 MG/5 ML VIAL IV ONE ×2 (14:00→14:04)
[2019-07-10] MEDS: PHENYLEPHRINE DRIP 40 MG/250 ML PREMIX IV PRN (14:14)
[2019-07-10] MEDS ORDERED: METOPROLOL TARTRATE 5 MG/5 ML VIAL IV PRN (15:05)
[2019-07-10] MEDS ORDERED: VANCOMYCIN INJ 500 MG in SODIUM CHLORIDE 0.9% 100 ML IV PRN (17:00)
[2019-07-10 21:27] LABS: ABG Base Excess -0.9 MMOL/L (-2.5-2.5); ABG HCO3 23.6 MMOL/L (20-26); ABG Oxygen Saturation 96.2 % (95-100); ABG PCO2 51.7 MM HG (35-48); ABG PH 7.308 (7.35-7.45); ABG PO2 85.8 MM HG (80-95); ABG TCO2 23.8 MMOL/L (23-27); Allen Test Positive
[2019-07-10] MEDS: MEROPENEM 500 MG in SODIUM CHLORIDE 0.9% 100 ML IV SCH (22:49)
[2019-07-11] MEDS: LEVALBUTEROL 0.63 MG/3 ML NEB RESP TX SCH ×7 (03:17→23:32)
[2019-07-11 03:18] LABS: ABG Base Excess 1.5 MMOL/L (-2.5-2.5); ABG HCO3 25.8 MMOL/L (20-26); ABG Oxygen Saturation 97.9 % (95-100); ABG PCO2 61.6 MM HG (35-48); ABG PH 7.287 (7.35-7.45); ABG PO2 98.5 MM HG (80-95); ABG TCO2 27.2 MMOL/L (23-27); Allen Test Positive
[2019-07-11 05:02] LABS: Basophils # 0.1 10*3/uL (0.0-0.2); Basophils % 0.5 % (0.0-0.8); Eosinophils # 0.4 10*3/uL (0.0-0.87); Eosinophils % 1.6 % (0.00-10.9); Hematocrit 29.7 VOL% (35.7-47.0); Hemoglobin 9.9 GM/DL (12.0-16.0); Immature Granulocytes % 0.8 %; Lymphocytes # 1.1 10*3/uL (1.4-4.0); Lymphocytes % 4.7 % (21.3-54.2); Mean Corpuscular HGB Conc 33.3 GM/DL (32-36); Mean Platelet Volume 10.7 FL (9.6-12.0); Monocytes % 13.5 % (1.7-12.7); NRBC # 3.07 10*3/uL; Neutrophils % 78.9 % (38.7-73.9); Platelet Count 294 T/CUMM (130-400); Red Cell Distribution Width 18.6 % (9.3-17.3); White Blood Count 23.8 T/CUMM (4-12)
[2019-07-11 05:25] LABS: Eosinophils 2 % (0-10); Howell-Jolly Bodies Few; Hypochromasia 1+; Lymphocytes 7 % (20-55); Nucleated Red Blood Cells 21 (0-5); Ovalocytes Slight; Pappenheimer Bodies Few; Platelet Estimate Adequate; Segmented Neutrophils 78 % (50-85); Target Cells Few; Total Cells Counted 100
[2019-07-11 05:26] LABS: Macrocytosis Slight; Polychromasia Slight; Sickle Cells Slight
[2019-07-11 05:28] LABS: Calcium 8.5 MG/DL (8.5-10.1); Osmolality,Calculated 282.1 MOS/KG (273-304)
[2019-07-11] MEDS: MULTIVITAMIN (BEROCCA) TABLET PO SCH (10:10)
[2019-07-11] MEDS: PANTOPRAZOLE 40 MG TABLET PO SCH (10:10)
[2019-07-11] MEDS: LACTOBACILLUS RHAMNOSUS GG CAPSULE PO SCH ×2 (10:10→23:38)
[2019-07-11] MEDS: SEVELAMER CARBONATE 800 MG TABLET PO SCH ×3 (10:10→16:39)
[2019-07-11] MEDS: METOPROLOL TARTRATE 5 MG/5 ML VIAL IV SCH ×3 (10:11→22:06)
[2019-07-11] MEDS: POLYETHYLENE GLYCOL POWDER 17 GM PACK PO SCH ×2 (10:16→23:38)
[2019-07-11] MEDS: LORazepam 2 MG/1 ML VIAL IV PRN (11:45)
[2019-07-11] MEDS: PHENYLEPHRINE DRIP 40 MG/250 ML PREMIX IV PRN (14:32)
[2019-07-11] MEDS ORDERED: VANCOMYCIN INJ 750 MG in SODIUM CHLORIDE 0.9% 250 ML IV ONE (17:00)
[2019-07-11] MEDS: MEROPENEM 500 MG in SODIUM CHLORIDE 0.9% 100 ML IV SCH (22:07)
[2019-07-12] MEDS: LEVALBUTEROL 0.63 MG/3 ML NEB RESP TX SCH ×6 (04:00→23:50)
[2019-07-12] MEDS: METOPROLOL TARTRATE 5 MG/5 ML VIAL IV SCH ×4 (04:53→23:50)
[2019-07-12 05:01] LABS: ABG Base Excess -1.3 MMOL/L (-2.5-2.5); ABG HCO3 23.3 MMOL/L (20-26); ABG PH 7.302 (7.35-7.45); ABG TCO2 23.5 MMOL/L (23-27); Allen Test Positive; Pt O2 Delivery Device BIPAP
[2019-07-12 05:11] LABS: Basophils # 0.1 10*3/uL (0.0-0.2); Basophils % 0.5 % (0.0-0.8); Eosinophils # 0.2 10*3/uL (0.0-0.87); Eosinophils % 0.9 % (0.00-10.9); Hematocrit 30.3 VOL% (35.7-47.0); Hemoglobin 10.1 GM/DL (12.0-16.0); Immature Granulocytes % 0.6 %; Immature Granulocytes Absolute 0.14 #; Lymphocytes # 0.8 10*3/uL (1.4-4.0); Lymphocytes % 3.4 % (21.3-54.2); Mean Corpuscular HGB Conc 33.3 GM/DL (32-36); Mean Corpuscular Volume 98.7 FL (87-102); Mean Platelet Volume 10.7 FL (9.6-12.0); Monocytes % 11.5 % (1.7-12.7); NRBC # 2.74 10*3/uL; Neutrophils % 83.1 % (38.7-73.9); Platelet Count 251 T/CUMM (130-400); Red Blood Count 3.07 MC/CUMM (3.8-5.5); Red Cell Distribution Width 18.3 % (9.3-17.3); White Blood Count 23.7 T/CUMM (4-12)
[2019-07-12 05:46] LABS: Calcium 8.9 MG/DL (8.5-10.1); Osmolality,Calculated 279.8 MOS/KG (273-304)
[2019-07-12 06:05] LABS: Band Neutrophils 3 % (0-10); Eosinophils 2 % (0-10); Lymphocytes 4 % (20-55); Nucleated Red Blood Cells 17 (0-5); Segmented Neutrophils 82 % (50-85); Total Cells Counted 100
[2019-07-12 06:07] LABS: Anisocytosis 1+; Ovalocytes Few; Pappenheimer Bodies 2+; Platelet Estimate Normal; Target Cells 1+
[2019-07-12] MEDS: LORazepam 2 MG/1 ML VIAL IV PRN ×2 (06:15→18:16)
[2019-07-12] MEDS: LACTOBACILLUS RHAMNOSUS GG CAPSULE PO SCH ×2 (10:31→21:51)
[2019-07-12] MEDS: MULTIVITAMIN (BEROCCA) TABLET PO SCH (10:31)
[2019-07-12] MEDS: SEVELAMER CARBONATE 800 MG TABLET PO SCH ×3 (10:31→18:24)
[2019-07-12] MEDS: PANTOPRAZOLE 40 MG TABLET PO SCH (10:31)
[2019-07-12] MEDS: POLYETHYLENE GLYCOL POWDER 17 GM PACK PO SCH ×2 (10:31→21:50)
[2019-07-12 13:14] LABS: VDRL Spinal Fluid Negative (Negative)
[2019-07-12] MEDS: MEROPENEM 500 MG in SODIUM CHLORIDE 0.9% 100 ML IV SCH (21:51)
[2019-07-13] MEDS: LEVALBUTEROL 0.63 MG/3 ML NEB RESP TX SCH ×6 (03:06→23:40)
[2019-07-13 04:36] LABS: ABG Base Excess -1.6 MMOL/L (-2.5-2.5); ABG HCO3 24.6 MMOL/L (20-26); ABG Oxygen Saturation 84.3 % (95-100); ABG PCO2 48.6 MM HG (35-48); ABG PH 7.323 (7.35-7.45); ABG PO2 52.4 MM HG (80-95); ABG TCO2 26.1 MMOL/L (23-27); Allen Test Positive; Pt O2 Delivery Device Other
[2019-07-13 04:54] LABS: Basophils # 0.1 10*3/uL (0.0-0.2); Basophils % 0.6 % (0.0-0.8); Eosinophils # 0.3 10*3/uL (0.0-0.87); Eosinophils % 1.8 % (0.00-10.9); Hematocrit 29.6 VOL% (35.7-47.0); Hemoglobin 9.6 GM/DL (12.0-16.0); Immature Granulocytes % 0.7 %; Immature Granulocytes Absolute 0.13 #; Lymphocytes % 5.2 % (21.3-54.2); Mean Corpuscular HGB Conc 32.4 GM/DL (32-36); Mean Platelet Volume 10.9 FL (9.6-12.0); Monocytes % 14.7 % (1.7-12.7); NRBC # 1.78 10*3/uL; Platelet Count 219 T/CUMM (130-400); Red Blood Count 2.96 MC/CUMM (3.8-5.5); Red Cell Distribution Width 18.1 % (9.3-17.3); White Blood Count 18.9 T/CUMM (4-12)
[2019-07-13 05:11] LABS: Calcium 8.7 MG/DL (8.5-10.1); Osmolality,Calculated 277.4 MOS/KG (273-304)
[2019-07-13 05:23] LABS: Eosinophils 3 % (0-10); Lymphocytes 10 % (20-55); Nucleated Red Blood Cells 13 (0-5); Segmented Neutrophils 79 % (50-85); Total Cells Counted 100
[2019-07-13 05:24] LABS: Platelet Estimate Normal
[2019-07-13 05:25] LABS: Howell-Jolly Bodies Few
[2019-07-13 05:37] LABS: Target Cells 1+
[2019-07-13 05:38] LABS: Pappenheimer Bodies 2+
[2019-07-13 05:40] LABS: Stomatocytes Slight
[2019-07-13 05:41] LABS: Polychromasia Few
[2019-07-13 05:42] LABS: Anisocytosis 2+; Hypochromasia 1+
[2019-07-13 05:43] LABS: Macrocytosis 1+
[2019-07-13] MEDS: METOPROLOL TARTRATE 5 MG/5 ML VIAL IV SCH ×2 (06:47→11:26)
[2019-07-13 08:56] LABS: ABG Base Excess -2.3 MMOL/L (-2.5-2.5); ABG HCO3 22.5 MMOL/L (20-26); ABG PCO2 40.6 MM HG (35-48); ABG PH 7.359 (7.35-7.45); Allen Test Positive; Pt O2 Delivery Device Other
[2019-07-13] MEDS: LACTOBACILLUS RHAMNOSUS GG CAPSULE PO SCH ×2 (09:32→20:28)
[2019-07-13] MEDS: SEVELAMER CARBONATE 800 MG TABLET PO SCH ×3 (09:32→17:09)
[2019-07-13] MEDS: MULTIVITAMIN (BEROCCA) TABLET PO SCH (09:33)
[2019-07-13] MEDS: PANTOPRAZOLE 40 MG TABLET PO SCH (09:33)
[2019-07-13] MEDS: POLYETHYLENE GLYCOL POWDER 17 GM PACK PO SCH ×2 (10:45→20:28)
[2019-07-13 11:21] LABS: CMV PCR Source CSF; Epstein-Barr Virus Result Negative (Negative); Epstein-Barr Virus Source CSF; Specimen Source CSF
[2019-07-13] MEDS ORDERED: METOPROLOL TARTRATE 5 MG/5 ML VIAL IV ONE (19:55)
[2019-07-13] MEDS: traMADol 50 MG TABLET PO PRN (20:29)
[2019-07-13] MEDS: MEROPENEM 500 MG in SODIUM CHLORIDE 0.9% 100 ML IV SCH (20:30)
[2019-07-14] MEDS: LEVALBUTEROL 0.63 MG/3 ML NEB RESP TX SCH ×5 (03:36→19:18)
[2019-07-14] MEDS ORDERED: NEBIVOLOL 5 MG TABLET PO SCH (09:00)
[2019-07-14] MEDS: PANTOPRAZOLE 40 MG TABLET PO SCH (09:53)
[2019-07-14] MEDS: LACTOBACILLUS RHAMNOSUS GG CAPSULE PO SCH ×2 (09:53→21:49)
[2019-07-14] MEDS: POLYETHYLENE GLYCOL POWDER 17 GM PACK PO SCH ×2 (09:53→21:49)
[2019-07-14] MEDS: SEVELAMER CARBONATE 800 MG TABLET PO SCH ×3 (09:53→18:14)
[2019-07-14] MEDS: MULTIVITAMIN (BEROCCA) TABLET PO SCH (09:53)
[2019-07-14] MEDS ORDERED: NEBIVOLOL 5 MG TABLET PO ONE (10:10)
[2019-07-14 11:29] LABS: Basophils % 0.2 % (0.0-0.8); Eosinophils # 0.3 10*3/uL (0.0-0.87); Eosinophils % 1.9 % (0.00-10.9); Hematocrit 27.3 VOL% (35.7-47.0); Hemoglobin 9.1 GM/DL (12.0-16.0); Immature Granulocytes % 0.6 %; Lymphocytes # 1.2 10*3/uL (1.4-4.0); Lymphocytes % 7.5 % (21.3-54.2); Mean Corpuscular HGB Conc 33.3 GM/DL (32-36); Mean Corpuscular Volume 97.8 FL (87-102); Mean Platelet Volume 10.5 FL (9.6-12.0); Monocytes % 13.7 % (1.7-12.7); NRBC # 0.79 10*3/uL; Neutrophils % 76.1 % (38.7-73.9); Platelet Count 194 T/CUMM (130-400); Red Blood Count 2.79 MC/CUMM (3.8-5.5); Red Cell Distribution Width 17.2 % (9.3-17.3); White Blood Count 16.4 T/CUMM (4-12)
[2019-07-14 13:06] LABS: Adenovirus PCR Negative (Negative); Specimen Source CSF
[2019-07-14 13:55] LABS: West Nile Virus Ab, IgG, CSF Negative (Negative); West Nile Virus Ab, IgM, CSF Negative (Negative)
[2019-07-14] MEDS ORDERED: carvediloL 3.125 MG TABLET PO SCH (21:00)
[2019-07-14] MEDS: MEROPENEM 500 MG in SODIUM CHLORIDE 0.9% 100 ML IV SCH (21:49)
[2019-07-14] MEDS: BISOPROLOL 5 MG TABLET PO SCH (22:29)
[2019-07-15] MEDS: LEVALBUTEROL 0.63 MG/3 ML NEB RESP TX SCH ×7 (00:08→23:35)
[2019-07-15 05:26] LABS: Basophils # 0.1 10*3/uL (0.0-0.2); Basophils % 0.3 % (0.0-0.8); Eosinophils # 0.7 10*3/uL (0.0-0.87); Eosinophils % 4.1 % (0.00-10.9); Hematocrit 26.6 VOL% (35.7-47.0); Hemoglobin 8.9 GM/DL (12.0-16.0); Immature Granulocytes % 0.6 %; Immature Granulocytes Absolute 0.09 #; Lymphocytes # 1.6 10*3/uL (1.4-4.0); Lymphocytes % 9.6 % (21.3-54.2); Mean Corpuscular HGB Conc 33.5 GM/DL (32-36); Mean Corpuscular Volume 97.1 FL (87-102); Mean Platelet Volume 10.8 FL (9.6-12.0); Monocytes % 15.4 % (1.7-12.7); NRBC # 0.38 10*3/uL; Platelet Count 183 T/CUMM (130-400); Red Blood Count 2.74 MC/CUMM (3.8-5.5); Red Cell Distribution Width 17.3 % (9.3-17.3); White Blood Count 16.2 T/CUMM (4-12)
[2019-07-15 05:49] LABS: Osmolality,Calculated 276.8 MOS/KG (273-304)
[2019-07-15] MEDS: PANTOPRAZOLE 40 MG TABLET PO SCH (08:18)
[2019-07-15] MEDS: SEVELAMER CARBONATE 800 MG TABLET PO SCH ×3 (08:18→17:30)
[2019-07-15] MEDS: BISOPROLOL 5 MG TABLET PO SCH ×2 (08:18→20:57)
[2019-07-15] MEDS: LACTOBACILLUS RHAMNOSUS GG CAPSULE PO SCH ×2 (08:18→20:57)
[2019-07-15] MEDS: MULTIVITAMIN (BEROCCA) TABLET PO SCH (08:18)
[2019-07-15] MEDS: POLYETHYLENE GLYCOL POWDER 17 GM PACK PO SCH ×3 (08:19→20:57)
[2019-07-15] MEDS ORDERED: METOPROLOL TARTRATE 25 MG TABLET PO SCH (09:00)
[2019-07-15] MEDS ORDERED: NEBIVOLOL 5 MG TABLET PO SCH (09:00)
[2019-07-15] MEDS: DOCUSATE SODIUM 100 MG CAPSULE PO SCH ×2 (12:01→20:57)
[2019-07-15] MEDS: MEROPENEM 500 MG in SODIUM CHLORIDE 0.9% 100 ML IV SCH (20:57)
[2019-07-16] MEDS: LEVALBUTEROL 0.63 MG/3 ML NEB RESP TX SCH ×3 (03:28→15:28)
[2019-07-16 05:04] LABS: Basophils % 0.2 % (0.0-0.8); Eosinophils # 0.9 10*3/uL (0.0-0.87); Eosinophils % 4.8 % (0.00-10.9); Hemoglobin 9.5 GM/DL (12.0-16.0); Immature Granulocytes % 0.5 %; Lymphocytes # 2.4 10*3/uL (1.4-4.0); Lymphocytes % 12.5 % (21.3-54.2); Mean Corpuscular HGB Conc 33.9 GM/DL (32-36); Mean Corpuscular Volume 97.9 FL (87-102); Mean Platelet Volume 11.3 FL (9.6-12.0); Monocytes % 13.5 % (1.7-12.7); NRBC # 0.18 10*3/uL; Neutrophils % 68.5 % (38.7-73.9); Platelet Count 195 T/CUMM (130-400); Red Blood Count 2.86 MC/CUMM (3.8-5.5); Red Cell Distribution Width 17.4 % (9.3-17.3); White Blood Count 18.9 T/CUMM (4-12)
[2019-07-16 05:29] LABS: Calcium 8.1 MG/DL (8.5-10.1)
[2019-07-16] MEDS: POLYETHYLENE GLYCOL POWDER 17 GM PACK PO SCH (08:40)
[2019-07-16] MEDS: MULTIVITAMIN (BEROCCA) TABLET PO SCH (08:40)
[2019-07-16] MEDS: DOCUSATE SODIUM 100 MG CAPSULE PO SCH ×2 (08:40→20:40)
[2019-07-16] MEDS: SEVELAMER CARBONATE 800 MG TABLET PO SCH ×3 (08:40→17:09)
[2019-07-16] MEDS: BISOPROLOL 5 MG TABLET PO SCH ×2 (08:40→20:41)
[2019-07-16] MEDS: PANTOPRAZOLE 40 MG TABLET PO SCH (08:40)
[2019-07-16] MEDS: LACTOBACILLUS RHAMNOSUS GG CAPSULE PO SCH ×2 (08:40→20:40)
[2019-07-16] MEDS: MEROPENEM 500 MG in SODIUM CHLORIDE 0.9% 100 ML IV SCH (20:38)
[2019-07-16] MEDS: hydrOXYzine HCL 25 MG TABLET PO PRN (20:40)
[2019-07-17] MEDS: LEVALBUTEROL 0.63 MG/3 ML NEB RESP TX SCH ×4 (01:49→23:52)
[2019-07-17] MEDS: traMADol 50 MG TABLET PO PRN (06:41)
[2019-07-17] MEDS: SEVELAMER CARBONATE 800 MG TABLET PO SCH ×3 (09:16→17:40)
[2019-07-17] MEDS: LACTOBACILLUS RHAMNOSUS GG CAPSULE PO SCH ×2 (09:16→20:14)
[2019-07-17] MEDS: MULTIVITAMIN (BEROCCA) TABLET PO SCH (09:16)
[2019-07-17] MEDS: BISOPROLOL 5 MG TABLET PO SCH ×2 (09:16→20:15)
[2019-07-17] MEDS: PANTOPRAZOLE 40 MG TABLET PO SCH (09:17)
[2019-07-17] MEDS: DOCUSATE SODIUM 100 MG CAPSULE PO SCH ×2 (09:17→20:14)
[2019-07-17] MEDS: POLYETHYLENE GLYCOL POWDER 17 GM PACK PO SCH (09:17)
[2019-07-17] MEDS: hydrOXYzine HCL 25 MG TABLET PO PRN ×2 (09:23→20:14)
[2019-07-17] MEDS: DILTIAZEM 30 MG TABLET PO SCH ×3 (11:07→20:14)
[2019-07-18] MEDS: traMADol 50 MG TABLET PO PRN ×3 (00:33→20:47)
[2019-07-18 05:49] LABS: Basophils # 0.1 10*3/uL (0.0-0.2); Basophils % 0.5 % (0.0-0.8); Eosinophils # 1.1 10*3/uL (0.0-0.87); Eosinophils % 6.4 % (0.00-10.9); Hematocrit 26.1 VOL% (35.7-47.0); Hemoglobin 8.4 GM/DL (12.0-16.0); Immature Granulocytes % 0.6 %; Lymphocytes # 2.1 10*3/uL (1.4-4.0); Lymphocytes % 11.9 % (21.3-54.2); Mean Corpuscular HGB Conc 32.2 GM/DL (32-36); Mean Corpuscular Volume 98.1 FL (87-102); Mean Platelet Volume 11.9 FL (9.6-12.0); Monocytes % 14.2 % (1.7-12.7); NRBC # 0.05 10*3/uL; Neutrophils % 66.4 % (38.7-73.9); Platelet Count 159 T/CUMM (130-400); Red Blood Count 2.66 MC/CUMM (3.8-5.5); Red Cell Distribution Width 17.8 % (9.3-17.3); White Blood Count 17.3 T/CUMM (4-12)
[2019-07-18 06:02] LABS: Calcium 8.2 MG/DL (8.5-10.1); Osmolality,Calculated 296.3 MOS/KG (273-304)
[2019-07-18 06:13] LABS: Band Neutrophils 3 % (0-10); Eosinophils 5 % (0-10); Lymphocytes 12 % (20-55); Metamyelocytes 2 %; Platelet Estimate Adequate; Segmented Neutrophils 66 % (50-85); Total Cells Counted 100
[2019-07-18 06:14] LABS: Anisocytosis 2+; Hypochromasia 3+; Macrocytosis 1+; Microcytosis 1+; Ovalocytes Few; Target Cells 2+
[2019-07-18 06:16] LABS: Howell-Jolly Bodies Few; Pappenheimer Bodies 2+
[2019-07-18] MEDS: LEVALBUTEROL 0.63 MG/3 ML NEB RESP TX SCH ×3 (07:49→23:56)
[2019-07-18] MEDS: MULTIVITAMIN (BEROCCA) TABLET PO SCH (09:12)
[2019-07-18] MEDS: POLYETHYLENE GLYCOL POWDER 17 GM PACK PO SCH (09:12)
[2019-07-18] MEDS: DOCUSATE SODIUM 100 MG CAPSULE PO SCH ×2 (09:12→20:26)
[2019-07-18] MEDS: BISOPROLOL 5 MG TABLET PO SCH ×2 (09:12→20:25)
[2019-07-18] MEDS: PANTOPRAZOLE 40 MG TABLET PO SCH (09:12)
[2019-07-18] MEDS: LACTOBACILLUS RHAMNOSUS GG CAPSULE PO SCH ×2 (09:12→20:25)
[2019-07-18] MEDS: hydrOXYzine HCL 25 MG TABLET PO PRN ×2 (09:12→20:25)
[2019-07-18] MEDS: SEVELAMER CARBONATE 800 MG TABLET PO SCH ×3 (09:12→17:50)
[2019-07-18] MEDS: DILTIAZEM 30 MG TABLET PO SCH ×2 (09:13→20:26)
[2019-07-18] MEDS ORDERED: DIGOXIN 0.5 MG/2 ML AMP IV ONE (17:00)
[2019-07-19 06:03] LABS: Basophils # 0.1 10*3/uL (0.0-0.2); Basophils % 0.5 % (0.0-0.8); Eosinophils # 0.9 10*3/uL (0.0-0.87); Eosinophils % 5.5 % (0.00-10.9); Hematocrit 26.2 VOL% (35.7-47.0); Hemoglobin 8.4 GM/DL (12.0-16.0); Immature Granulocytes % 0.6 %; Lymphocytes # 2.1 10*3/uL (1.4-4.0); Lymphocytes % 12.7 % (21.3-54.2); Mean Corpuscular HGB Conc 32.1 GM/DL (32-36); Mean Corpuscular Volume 99.6 FL (87-102); Mean Platelet Volume 11.4 FL (9.6-12.0); Monocytes % 16.4 % (1.7-12.7); NRBC # 0.03 10*3/uL; Neutrophils % 64.3 % (38.7-73.9); Platelet Count 189 T/CUMM (130-400); Red Blood Count 2.63 MC/CUMM (3.8-5.5); White Blood Count 16.6 T/CUMM (4-12)
[2019-07-19 06:22] LABS: Calcium 8.1 MG/DL (8.5-10.1); Osmolality,Calculated 283.8 MOS/KG (273-304)
[2019-07-19 06:31] LABS: Eosinophils 6 % (0-10); Lymphocytes 8 % (20-55); Platelet Estimate Adequate; Segmented Neutrophils 71 % (50-85); Total Cells Counted 100
[2019-07-19 06:32] LABS: Howell-Jolly Bodies Few; Hypochromasia 1+; Ovalocytes Slight; Pappenheimer Bodies Few
[2019-07-19 06:33] LABS: Microcytosis 1+
[2019-07-19] MEDS: LEVALBUTEROL 0.63 MG/3 ML NEB RESP TX SCH ×3 (07:14→22:32)
[2019-07-19] MEDS: hydrOXYzine HCL 25 MG TABLET PO PRN ×2 (08:53→21:15)
[2019-07-19] MEDS: DILTIAZEM 30 MG TABLET PO SCH ×2 (08:54→21:09)
[2019-07-19] MEDS: POLYETHYLENE GLYCOL POWDER 17 GM PACK PO SCH (08:54)
[2019-07-19] MEDS: SEVELAMER CARBONATE 800 MG TABLET PO SCH ×3 (08:54→17:01)
[2019-07-19] MEDS: LACTOBACILLUS RHAMNOSUS GG CAPSULE PO SCH ×2 (08:54→21:09)
[2019-07-19] MEDS: MULTIVITAMIN (BEROCCA) TABLET PO SCH (08:54)
[2019-07-19] MEDS: DOCUSATE SODIUM 100 MG CAPSULE PO SCH ×2 (08:54→21:09)
[2019-07-19] MEDS: BISOPROLOL 5 MG TABLET PO SCH ×2 (08:54→21:09)
[2019-07-19] MEDS: PANTOPRAZOLE 40 MG TABLET PO SCH (08:54)
[2019-07-19] MEDS: traMADol 50 MG TABLET PO PRN (13:00)
[2019-07-20 06:00] LABS: Basophils # 0.1 10*3/uL (0.0-0.2); Basophils % 0.5 % (0.0-0.8); Eosinophils # 0.8 10*3/uL (0.0-0.87); Eosinophils % 4.6 % (0.00-10.9); Hematocrit 25.4 VOL% (35.7-47.0); Hemoglobin 8.4 GM/DL (12.0-16.0); Immature Granulocytes % 0.6 %; Lymphocytes # 2.6 10*3/uL (1.4-4.0); Lymphocytes % 15.1 % (21.3-54.2); Mean Corpuscular HGB Conc 33.1 GM/DL (32-36); Mean Corpuscular Volume 98.8 FL (87-102); Mean Platelet Volume 11.9 FL (9.6-12.0); Monocytes % 16.8 % (1.7-12.7); NRBC # 0.03 10*3/uL; Neutrophils % 62.4 % (38.7-73.9); Platelet Count 227 T/CUMM (130-400); Red Blood Count 2.57 MC/CUMM (3.8-5.5); Red Cell Distribution Width 18.1 % (9.3-17.3); White Blood Count 17.4 T/CUMM (4-12)
[2019-07-20 06:19] LABS: Calcium 8.3 MG/DL (8.5-10.1); Osmolality,Calculated 287.1 MOS/KG (273-304)
[2019-07-20 06:36] LABS: Eosinophils 4 % (0-10); Howell-Jolly Bodies Few; Hypochromasia 1+; Lymphocytes 9 % (20-55); Pappenheimer Bodies Few; Platelet Estimate Adequate; Segmented Neutrophils 77 % (50-85); Target Cells Few; Total Cells Counted 100
[2019-07-20 06:37] LABS: Microcytosis 1+
[2019-07-20] MEDS: LEVALBUTEROL 0.63 MG/3 ML NEB RESP TX SCH ×3 (07:19→23:56)
[2019-07-20] MEDS: DILTIAZEM 30 MG TABLET PO SCH ×2 (08:07→21:18)
[2019-07-20] MEDS: MULTIVITAMIN (BEROCCA) TABLET PO SCH (08:07)
[2019-07-20] MEDS: SEVELAMER CARBONATE 800 MG TABLET PO SCH ×3 (08:07→17:17)
[2019-07-20] MEDS: POLYETHYLENE GLYCOL POWDER 17 GM PACK PO SCH (08:08)
[2019-07-20] MEDS: BISOPROLOL 5 MG TABLET PO SCH ×2 (08:08→21:18)
[2019-07-20] MEDS: LACTOBACILLUS RHAMNOSUS GG CAPSULE PO SCH ×2 (08:08→21:18)
[2019-07-20] MEDS: PANTOPRAZOLE 40 MG TABLET PO SCH (08:08)
[2019-07-20] MEDS: DOCUSATE SODIUM 100 MG CAPSULE PO SCH ×2 (08:08→21:18)
[2019-07-20] MEDS: traMADol 50 MG TABLET PO PRN (12:48)
[2019-07-20] MEDS: DOXYCYCLINE HYCLATE 100 MG CAPSULE PO SCH (21:18)
[2019-07-21 05:54] LABS: Basophils # 0.1 10*3/uL (0.0-0.2); Basophils % 0.4 % (0.0-0.8); Eosinophils # 0.5 10*3/uL (0.0-0.87); Eosinophils % 2.8 % (0.00-10.9); Hematocrit 24.2 VOL% (35.7-47.0); Immature Granulocytes Absolute 0.19 #; Lymphocytes # 2.8 10*3/uL (1.4-4.0); Lymphocytes % 15.1 % (21.3-54.2); Mean Corpuscular HGB Conc 33.1 GM/DL (32-36); Mean Corpuscular Volume 98.4 FL (87-102); Mean Platelet Volume 11.7 FL (9.6-12.0); Monocytes % 14.7 % (1.7-12.7); NRBC # 0.02 10*3/uL; Platelet Count 244 T/CUMM (130-400); Red Blood Count 2.46 MC/CUMM (3.8-5.5); Red Cell Distribution Width 17.8 % (9.3-17.3); White Blood Count 18.3 T/CUMM (4-12)
[2019-07-21 06:12] LABS: Calcium 7.9 MG/DL (8.5-10.1)
[2019-07-21] MEDS: LEVALBUTEROL 0.63 MG/3 ML NEB RESP TX SCH ×2 (07:09→15:18)
[2019-07-21] MEDS: DILTIAZEM 30 MG TABLET PO SCH ×2 (09:09→21:03)
[2019-07-21] MEDS: LACTOBACILLUS RHAMNOSUS GG CAPSULE PO SCH ×2 (09:11→21:04)
[2019-07-21] MEDS: BISOPROLOL 5 MG TABLET PO SCH ×2 (09:11→21:04)
[2019-07-21] MEDS: hydrOXYzine HCL 25 MG TABLET PO PRN (09:11)
[2019-07-21] MEDS: MULTIVITAMIN (BEROCCA) TABLET PO SCH (09:11)
[2019-07-21] MEDS: SEVELAMER CARBONATE 800 MG TABLET PO SCH ×3 (09:11→15:59)
[2019-07-21] MEDS: traMADol 50 MG TABLET PO PRN ×2 (09:12→17:09)
[2019-07-21] MEDS: PANTOPRAZOLE 40 MG TABLET PO SCH (09:12)
[2019-07-21] MEDS: DOXYCYCLINE HYCLATE 100 MG CAPSULE PO SCH ×2 (09:12→21:04)
[2019-07-21] MEDS: POLYETHYLENE GLYCOL POWDER 17 GM PACK PO SCH (09:12)
[2019-07-21] MEDS: DOCUSATE SODIUM 100 MG CAPSULE PO SCH ×2 (09:12→21:04)
[2019-07-21] MEDS ORDERED: TUBERCULIN SKIN TEST 0.1 ML SYRINGE INTRADERM ONE (12:22)
[2019-07-22] MEDS: LEVALBUTEROL 0.63 MG/3 ML NEB RESP TX SCH ×2 (03:32→07:18)
[2019-07-22 05:14] LABS: Basophils # 0.1 10*3/uL (0.0-0.2); Basophils % 0.6 % (0.0-0.8); Eosinophils # 0.6 10*3/uL (0.0-0.87); Eosinophils % 3.8 % (0.00-10.9); Hematocrit 22.7 VOL% (35.7-47.0); Hemoglobin 7.7 GM/DL (12.0-16.0); Immature Granulocytes % 0.4 %; Immature Granulocytes Absolute 0.06 #; Lymphocytes # 2.1 10*3/uL (1.4-4.0); Lymphocytes % 12.8 % (21.3-54.2); Mean Corpuscular HGB Conc 33.9 GM/DL (32-36); Mean Corpuscular Volume 97.4 FL (87-102); Mean Platelet Volume 11.9 FL (9.6-12.0); Monocytes % 17.3 % (1.7-12.7); NRBC # 0.02 10*3/uL; Neutrophils % 65.1 % (38.7-73.9); Platelet Count 236 T/CUMM (130-400); Red Blood Count 2.33 MC/CUMM (3.8-5.5); Red Cell Distribution Width 17.9 % (9.3-17.3); White Blood Count 16.1 T/CUMM (4-12)
[2019-07-22 05:34] LABS: Calcium 7.8 MG/DL (8.5-10.1); Osmolality,Calculated 282.1 MOS/KG (273-304)
[2019-07-22 05:35] LABS: Eosinophils 5 % (0-10); Howell-Jolly Bodies Slight; Hypochromasia 1+; Lymphocytes 11 % (20-55); Pappenheimer Bodies Slight; Platelet Estimate Adequate; Segmented Neutrophils 73 % (50-85); Total Cells Counted 100
[2019-07-22 07:52] VITALS: BP 102/55
[2019-07-22] MEDS: DOCUSATE SODIUM 100 MG CAPSULE PO SCH (08:24)
[2019-07-22] MEDS: DILTIAZEM 30 MG TABLET PO SCH (08:24)
[2019-07-22] MEDS: LACTOBACILLUS RHAMNOSUS GG CAPSULE PO SCH (08:24)
[2019-07-22] MEDS: BISOPROLOL 5 MG TABLET PO SCH (08:24)
[2019-07-22] MEDS: SEVELAMER CARBONATE 800 MG TABLET PO SCH (08:24)
[2019-07-22] MEDS: DOXYCYCLINE HYCLATE 100 MG CAPSULE PO SCH (08:24)
[2019-07-22] MEDS: MULTIVITAMIN (BEROCCA) TABLET PO SCH (08:24)
[2019-07-22] MEDS: PANTOPRAZOLE 40 MG TABLET PO SCH (08:24)
[2019-07-22] MEDS: POLYETHYLENE GLYCOL POWDER 17 GM PACK PO SCH (08:24)
[2019-07-22] MEDS: traMADol 50 MG TABLET PO PRN (08:27)
[2019-07-22] MEDS: hydrOXYzine HCL 25 MG TABLET PO PRN (08:27)
== END 2019-07-22 11:25 | DRG 853 ==
LOC: N.ED 12:48 → N.EDINP 12:48 → SUATTDRO 17:12 → N.5E 18:21 → SUATTDRO 07-06 08:52 → N.CC 07-10 10:34 → N.5E 07-13 18:29
PROVIDERS: ADMIT Internal Medicine; ATTEND Internal Medicine

== ENCOUNTER 2019-11-01 09:57 | Inpatient (IN) ==
[2019-11-01 11:50] LABS: Basophils # 0.1 10*3/uL (0.0-0.2); Basophils % 0.4 % (0.0-0.8); Eosinophils % 0.1 % (0.00-10.9); Hematocrit 21.4 VOL% (35.7-47.0); Hemoglobin 7.3 GM/DL (12.0-16.0); Immature Granulocytes % 2.1 %; Mean Corpuscular HGB Conc 34.1 GM/DL (32-36); Mean Corpuscular Volume 93.9 FL (87-102); Mean Platelet Volume 10.7 FL (9.6-12.0); Monocytes % 13.3 % (1.7-12.7); NRBC # 16.65 10*3/uL; Neutrophils % 84.1 % (38.7-73.9); Platelet Count 364 T/CUMM (130-400); Red Blood Count 2.28 MC/CUMM (3.8-5.5); Red Cell Distribution Width 22.5 % (9.3-17.3); White Blood Count 14.2 T/CUMM (4-12)
[2019-11-01 11:58] LABS: Albumin 2.9 G/DL (3.4-5.0); Bilirubin,Total 3.3 MG/DL (0.2-1.0); Calcium 8.5 MG/DL (8.5-10.1); Osmolality,Calculated 277.1 MOS/KG (273-304)
[2019-11-01 12:53] LABS: Nucleated Red Blood Cells 136 (0-5)
[2019-11-01 12:54] LABS: Band Neutrophils 4 % (0-10); Lymphocytes 9 % (20-55); Plasma Cells 1
[2019-11-01 12:55] LABS: Platelet Estimate Adequate; Polychromasia Slight; Segmented Neutrophils 79 % (50-85); Total Cells Counted 99
[2019-11-01] MEDS ORDERED: GLUCAGON 1 MG VIAL IM PRN (16:17)
[2019-11-01] MEDS ORDERED: DEXTROSE 10% 250 ML BAG IV PRN (16:17)
[2019-11-01] MEDS ORDERED: SODIUM CHLORIDE 0.9% 1,000 ML IV PRN (16:45)
[2019-11-01 18:06] LABS: Ferritin 22819.4 ng/ml (8-252)
[2019-11-01] MEDS: HEPARIN 5,000 UNIT/1 ML VIAL SUBCUT SCH (18:08)
[2019-11-02] MEDS: HEPARIN 5,000 UNIT/1 ML VIAL SUBCUT SCH ×3 (00:02→17:27)
[2019-11-02 06:26] LABS: Basophils # 0.1 10*3/uL (0.0-0.2); Basophils % 0.5 % (0.0-0.8); Eosinophils % 0.1 % (0.00-10.9); Hematocrit 29.6 VOL% (35.7-47.0); Hemoglobin 10.1 GM/DL (12.0-16.0); Immature Granulocytes % 2.1 %; Immature Granulocytes Absolute 0.35 #; Mean Corpuscular HGB Conc 34.1 GM/DL (32-36); Mean Corpuscular Volume 92.5 FL (87-102); Mean Platelet Volume 10.9 FL (9.6-12.0); Monocytes % 8.8 % (1.7-12.7); NRBC # 16.76 10*3/uL; Neutrophils % 88.5 % (38.7-73.9); Platelet Count 287 T/CUMM (130-400); Red Cell Distribution Width 19.8 % (9.3-17.3); White Blood Count 16.3 T/CUMM (4-12)
[2019-11-02 06:47] LABS: Calcium 8.9 MG/DL (8.5-10.1); Osmolality,Calculated 269.2 MOS/KG (273-304)
[2019-11-02] MEDS ORDERED: traMADol 50 MG TABLET PO PRN (08:00)
[2019-11-02] MEDS ORDERED: MAGNESIUM SULF RIDER 2 GM in PREMIX 1 EACH IV PRN (08:01)
[2019-11-02] MEDS ORDERED: MAGNESIUM SULF RIDER 4 GM in PREMIX 1 EACH IV PRN (08:01)
[2019-11-02] MEDS ORDERED: POTASSIUM CHLORIDE RIDER 10 MEQ in PREMIX 1 EACH IV PRN (08:01)
[2019-11-02] MEDS: cefTRIAXone 1,000 MG in SYRINGE 1 EACH IV SCH (09:44)
[2019-11-02 15:12] LABS: Band Neutrophils 3 % (0-10); Lymphocytes 11 % (20-55); Nucleated Red Blood Cells 115 (0-5); Platelet Estimate Normal; Segmented Neutrophils 83 % (50-85); Total Cells Counted 100
[2019-11-02 15:13] LABS: Anisocytosis 2+; Hypochromasia 2+; Macrocytosis Slight; Polychromasia 2+; Sickle Cells 1+
[2019-11-02 15:17] LABS: Basophilic Stippling Few; Howell-Jolly Bodies Few
[2019-11-03] MEDS: HEPARIN 5,000 UNIT/1 ML VIAL SUBCUT SCH ×3 (00:33→17:46)
[2019-11-03 06:33] LABS: Basophils # 0.1 10*3/uL (0.0-0.2); Basophils % 0.5 % (0.0-0.8); Eosinophils # 0.1 10*3/uL (0.0-0.87); Eosinophils % 0.4 % (0.00-10.9); Hematocrit 31.7 VOL% (35.7-47.0); Hemoglobin 10.6 GM/DL (12.0-16.0); Immature Granulocytes % 1.7 %; Immature Granulocytes Absolute 0.23 #; Lymphocytes # 0.1 10*3/uL (1.4-4.0); Lymphocytes % 0.4 % (21.3-54.2); Mean Corpuscular HGB Conc 33.4 GM/DL (32-36); Mean Corpuscular Volume 96.6 FL (87-102); Mean Platelet Volume 10.8 FL (9.6-12.0); Monocytes % 10.5 % (1.7-12.7); NRBC # 15.59 10*3/uL; Neutrophils % 86.5 % (38.7-73.9); Platelet Count 267 T/CUMM (130-400); Red Blood Count 3.28 MC/CUMM (3.8-5.5); Red Cell Distribution Width 20.3 % (9.3-17.3); White Blood Count 13.9 T/CUMM (4-12)
[2019-11-03 06:52] LABS: Calcium 8.9 MG/DL (8.5-10.1); Osmolality,Calculated 269.5 MOS/KG (273-304)
[2019-11-03 06:54] LABS: Albumin 2.5 G/DL (3.4-5.0); Bilirubin,Direct 1.6 MG/DL (0.0-0.20); Bilirubin,Indirect 1.8 MG/DL (0.0-1.0); Bilirubin,Total 3.4 MG/DL (0.2-1.0); Calcium 8.8 MG/DL (8.5-10.1); Osmolality,Calculated 267.7 MOS/KG (273-304); Total Protein 7.5 G/DL (6.4-8.3)
[2019-11-03 07:07] LABS: Band Neutrophils 2 % (0-10); Hypochromasia 1+; Lymphocytes 12 % (20-55); Nucleated Red Blood Cells 182 (0-5); Platelet Estimate Adequate; Segmented Neutrophils 79 % (50-85); Total Cells Counted 100
[2019-11-03 07:08] LABS: Microcytosis Slight; Pappenheimer Bodies Few
[2019-11-03] MEDS: cefTRIAXone 1,000 MG in SYRINGE 1 EACH IV SCH (09:33)
[2019-11-03] MEDS: DILTIAZEM 60 MG TABLET PO SCH ×2 (13:09→20:29)
[2019-11-04] MEDS: HEPARIN 5,000 UNIT/1 ML VIAL SUBCUT SCH ×3 (02:18→18:07)
[2019-11-04 06:47] LABS: Basophils # 0.1 10*3/uL (0.0-0.2); Basophils % 0.5 % (0.0-0.8); Eosinophils # 0.2 10*3/uL (0.0-0.87); Eosinophils % 1.4 % (0.00-10.9); Hematocrit 29.3 VOL% (35.7-47.0); Hemoglobin 10.1 GM/DL (12.0-16.0); Immature Granulocytes % 1.7 %; Immature Granulocytes Absolute 0.22 #; Lymphocytes # 1.1 10*3/uL (1.4-4.0); Lymphocytes % 8.3 % (21.3-54.2); Mean Corpuscular HGB Conc 34.5 GM/DL (32-36); Mean Corpuscular Volume 93.9 FL (87-102); Monocytes % 8.7 % (1.7-12.7); NRBC # 11.73 10*3/uL; Neutrophils % 79.4 % (38.7-73.9); Platelet Count 215 T/CUMM (130-400); Red Blood Count 3.12 MC/CUMM (3.8-5.5); Red Cell Distribution Width 20.1 % (9.3-17.3); White Blood Count 12.9 T/CUMM (4-12)
[2019-11-04 07:04] LABS: Calcium 8.8 MG/DL (8.5-10.1); Osmolality,Calculated 274.5 MOS/KG (273-304)
[2019-11-04 07:18] LABS: Band Neutrophils 1 % (0-10); Eosinophils 1 % (0-10); Hypochromasia 2+; Lymphocytes 12 % (20-55); Macrocytosis Slight; Nucleated Red Blood Cells 165 (0-5); Platelet Estimate Adequate; Polychromasia Slight; Segmented Neutrophils 78 % (50-85); Target Cells Few; Total Cells Counted 100
[2019-11-04 07:19] LABS: Pappenheimer Bodies Slight
[2019-11-04] MEDS: cefTRIAXone 1,000 MG in SYRINGE 1 EACH IV SCH (09:48)
[2019-11-04] MEDS: DILTIAZEM 60 MG TABLET PO SCH ×2 (09:52→20:15)
[2019-11-05] MEDS: HEPARIN 5,000 UNIT/1 ML VIAL SUBCUT SCH ×3 (03:02→17:29)
[2019-11-05] MEDS: cefTRIAXone 1,000 MG in SYRINGE 1 EACH IV SCH (09:22)
[2019-11-05] MEDS: DILTIAZEM 60 MG TABLET PO SCH ×2 (09:22→21:19)
[2019-11-05 16:24] LABS: Basophils # 0.1 10*3/uL (0.0-0.2); Basophils % 0.6 % (0.0-0.8); Eosinophils # 0.3 10*3/uL (0.0-0.87); Eosinophils % 2.4 % (0.00-10.9); Hematocrit 29.1 VOL% (35.7-47.0); Hemoglobin 10.4 GM/DL (12.0-16.0); Immature Granulocytes % 1.5 %; Immature Granulocytes Absolute 0.16 #; Lymphocytes # 0.8 10*3/uL (1.4-4.0); Lymphocytes % 7.8 % (21.3-54.2); Mean Corpuscular HGB Conc 35.7 GM/DL (32-36); Mean Platelet Volume 11.7 FL (9.6-12.0); NRBC # 6.84 10*3/uL; Neutrophils % 74.7 % (38.7-73.9); Platelet Count 207 T/CUMM (130-400); Red Blood Count 2.97 MC/CUMM (3.8-5.5); Red Cell Distribution Width 21.2 % (9.3-17.3); White Blood Count 10.7 T/CUMM (4-12)
[2019-11-05 16:42] LABS: Albumin 2.7 G/DL (3.4-5.0); Bilirubin,Total 2.1 MG/DL (0.2-1.0); Calcium 7.8 MG/DL (8.5-10.1); Osmolality,Calculated 269.5 MOS/KG (273-304); Total Protein 7.6 G/DL (6.4-8.3); Uric Acid 5.4 MG/DL (2.6-6.0)
[2019-11-05 16:51] LABS: Band Neutrophils 1 % (0-10); Basophilic Stippling 1+; Eosinophils 2 % (0-10); Hypochromasia 2+; Lymphocytes 15 % (20-55); Microcytosis 1+; Nucleated Red Blood Cells 79 (0-5); Polychromasia 1+; Segmented Neutrophils 69 % (50-85); Total Cells Counted 100
[2019-11-05 16:52] LABS: Platelet Estimate Adequate; Smudge Cells Few; Target Cells Few
[2019-11-05] MEDS ORDERED: AZITHROMYCIN INJ 250 MG in SODIUM CHLORIDE 0.9% 250 ML IV SCH (21:00)
[2019-11-06] MEDS: HEPARIN 5,000 UNIT/1 ML VIAL SUBCUT SCH ×3 (00:12→17:06)
[2019-11-06] MEDS: LIDOCAINE 5% PATCH TRANSDERM SCH (08:28)
[2019-11-06] MEDS: DILTIAZEM 60 MG TABLET PO SCH ×2 (08:28→21:01)
[2019-11-06] MEDS: cefTRIAXone 1,000 MG in SYRINGE 1 EACH IV SCH (08:28)
[2019-11-06] MEDS: AZITHROMYCIN 250 MG TABLET PO SCH (08:28)
[2019-11-07] MEDS: HEPARIN 5,000 UNIT/1 ML VIAL SUBCUT SCH ×2 (00:53→09:45)
[2019-11-07 06:53] LABS: Albumin 2.6 G/DL (3.4-5.0); Bilirubin,Total 2.4 MG/DL (0.2-1.0); Calcium 8.2 MG/DL (8.5-10.1); Osmolality,Calculated 265.5 MOS/KG (273-304); Total Protein 7.4 G/DL (6.4-8.3)
[2019-11-07] MEDS: cefTRIAXone 1,000 MG in SYRINGE 1 EACH IV SCH (09:45)
[2019-11-07] MEDS: AZITHROMYCIN 250 MG TABLET PO SCH (09:45)
[2019-11-07] MEDS: DILTIAZEM 60 MG TABLET PO SCH (09:45)
[2019-11-07] MEDS: LIDOCAINE 5% PATCH TRANSDERM SCH (10:22)
[2019-11-07 10:24] VITALS: BP 160/90
[2019-11-07] MEDS ORDERED: HEPARIN LOCK FLUSH 500 UNIT/5 ML SYRINGE IV ONE (11:45)
== END 2019-11-07 16:45 | disposition home health service (06) | DRG 177 ==
LOC: EDUNIT# → EDBD → N.ED 09:57 → SUATTDRO 16:51 → N.EDINP 16:51 → N.2E 18:41 → N.2W 11-06 08:33
PROVIDERS: ADMIT Nurse Practitioner Adult Health; ATTEND Internal Medicine

== ENCOUNTER 2019-11-11 09:00 | Inpatient (IN) ==
[2019-12-02] MEDS ORDERED: LEVOFLOXACIN INJ 500 MG in PREMIX 1 EACH IV ONE (06:30)
[2019-12-02] MEDS ORDERED: ALVIMOPAN 12 MG CAPSULE PO ONE (06:30)
[2019-12-15] MEDS ORDERED: ACETAMINOPHEN 325 MG TABLET PO PRN (07:26)
[2019-12-15] MEDS ORDERED: GLUCAGON 1 MG VIAL IM PRN (07:26)
[2019-12-15] MEDS ORDERED: DEXTROSE 50% 25 GM/50 ML VIAL IV PRN (07:26)
[2019-12-15] MEDS ORDERED: LACTULOSE 20 GM/30 ML UDCUP PO PRN (07:26)
[2019-12-15] MEDS ORDERED: MAGNESIUM HYDROXIDE SUSP 30 ML UDCUP PO PRN (07:26)
[2019-12-15] MEDS ORDERED: amLODIPine 5 MG TABLET PO SCH (09:00)
[2019-12-15] MEDS ORDERED: HEPARIN LOCK FLUSH 500 UNIT/5 ML SYRINGE IV ONE (09:33)
[2019-12-15] MEDS: INSULIN REGULAR 100 UNIT/ML SUBCUT SCH ×4 (10:30→22:18)
[2019-12-15] MEDS: DILTIAZEM 60 MG TABLET PO SCH ×2 (10:31→21:07)
[2019-12-15] MEDS: SEVELAMER CARBONATE 800 MG TABLET PO SCH ×3 (10:31→17:37)
[2019-12-15] MEDS: DOCUSATE SODIUM 100 MG CAPSULE PO SCH ×2 (10:32→21:07)
[2019-12-15] MEDS: BISOPROLOL 5 MG TABLET PO SCH ×2 (10:33→22:18)
[2019-12-15] MEDS: PANTOPRAZOLE 40 MG TABLET PO SCH (10:40)
[2019-12-15] MEDS: LIDOCAINE 5% PATCH TRANSDERM SCH (10:40)
[2019-12-15 11:53] LABS: Basophils # 0.1 10*3/uL (0.0-0.2); Basophils % 0.3 % (0.0-0.8); Eosinophils # 0.1 10*3/uL (0.0-0.87); Eosinophils % 0.4 % (0.00-10.9); Hematocrit 18.9 VOL% (35.7-47.0); Hemoglobin 6.7 GM/DL (12.0-16.0); Immature Granulocytes % 0.9 %; Immature Granulocytes Absolute 0.14 #; Lymphocytes # 1.4 10*3/uL (1.4-4.0); Lymphocytes % 9.1 % (21.3-54.2); Mean Corpuscular HGB Conc 35.4 GM/DL (32-36); Mean Corpuscular Volume 97.4 FL (87-102); Monocytes % 11.8 % (1.7-12.7); NRBC # 1.74 10*3/uL; Neutrophils % 77.5 % (38.7-73.9); Platelet Count 367 T/CUMM (130-400); Red Blood Count 1.94 MC/CUMM (3.8-5.5); Red Cell Distribution Width 24.8 % (9.3-17.3); White Blood Count 15.8 T/CUMM (4-12)
[2019-12-15 12:22] LABS: Albumin 2.9 G/DL (3.4-5.0); Bilirubin,Total 8.2 MG/DL (0.2-1.0); Calcium 9.4 MG/DL (8.5-10.1); Osmolality,Calculated 272.5 MOS/KG (273-304); Total Protein 7.4 G/DL (6.4-8.3)
[2019-12-15 12:35] LABS: Hypochromasia 2+; Lymphocytes 6 % (20-55); Nucleated Red Blood Cells 25 (0-5); Polychromasia 2+; Segmented Neutrophils 83 % (50-85); Total Cells Counted 100
[2019-12-15 12:36] LABS: Basophilic Stippling 1+; Macrocytosis 1+; Microcytosis 2+
[2019-12-15 12:37] LABS: Platelet Estimate Adequate
[2019-12-15] MEDS ORDERED: SODIUM CHLORIDE 0.9% 1,000 ML IV PRN (13:30)
[2019-12-15] MEDS: ONDANSETRON 4 MG/2 ML VIAL IV PRN ×2 (13:59→21:07)
[2019-12-15] MEDS: SODIUM CHLORIDE 0.9% 1,000 ML IV SCH ×3 (18:02→22:17)
[2019-12-15 20:36] LABS: Hematocrit 26.2 VOL% (35.7-47.0); Hemoglobin 9.2 GM/DL (12.0-16.0)
[2019-12-16] MEDS: cefTRIAXone 500 MG in SYRINGE 1 EACH IV SCH (00:30)
[2019-12-16] MEDS: SODIUM CHLORIDE 0.9% 1,000 ML IV SCH (02:33)
[2019-12-16] MEDS ORDERED: HEPARIN/NACL 0.9% 2 UNITS/ML 500 ML IV ONE (07:02)
[2019-12-16 07:15] LABS: Basophils # 0.1 10*3/uL (0.0-0.2); Basophils % 0.3 % (0.0-0.8); Eosinophils # 0.2 10*3/uL (0.0-0.87); Eosinophils % 1.1 % (0.00-10.9); Hematocrit 24.9 VOL% (35.7-47.0); Hemoglobin 8.7 GM/DL (12.0-16.0); Immature Granulocytes % 0.8 %; Immature Granulocytes Absolute 0.11 #; Lymphocytes # 1.5 10*3/uL (1.4-4.0); Lymphocytes % 10.2 % (21.3-54.2); Mean Corpuscular HGB Conc 34.9 GM/DL (32-36); Mean Corpuscular Volume 96.5 FL (87-102); Mean Platelet Volume 9.8 FL (9.6-12.0); Monocytes % 14.2 % (1.7-12.7); NRBC # 2.78 10*3/uL; Neutrophils % 73.4 % (38.7-73.9); Platelet Count 315 T/CUMM (130-400); Red Blood Count 2.58 MC/CUMM (3.8-5.5); Red Cell Distribution Width 20.7 % (9.3-17.3); White Blood Count 14.7 T/CUMM (4-12)
[2019-12-16 07:31] LABS: SARS-CoV-2 Total Ab Interp Reactive
[2019-12-16 07:34] LABS: Hypochromasia 1+; Lymphocytes 7 % (20-55); Macrocytosis Slight; Nucleated Red Blood Cells 23 (0-5); Pappenheimer Bodies Slight; Platelet Estimate Adequate; Polychromasia Slight; Segmented Neutrophils 78 % (50-85); Total Cells Counted 100
[2019-12-16 07:41] LABS: Calcium 8.7 MG/DL (8.5-10.1)
[2019-12-16] MEDS ORDERED: SODIUM CHLORIDE 0.9% 1,000 ML IV PRN ×2 (07:48→07:51)
[2019-12-16] MEDS ORDERED: ALBUTEROL/IPRATROPIUM 3 ML NEB RESP TX ONE (08:21)
[2019-12-16] MEDS ORDERED: propofoL 200 MG/20 ML VIAL IV ONE (10:11)
[2019-12-16] MEDS ORDERED: MIDAZOLAM 2 MG/2 ML VIAL ONE (10:12)
[2019-12-16] MEDS ORDERED: SEVOFLURANE 1 UNIT/15 MINUTE INH ONE (10:12)
[2019-12-16] MEDS ORDERED: ETOMIDATE 40 MG/20 ML VIAL IV ONE (10:12)
[2019-12-16] MEDS ORDERED: ESMOLOL 100 MG/10 ML VIAL IV ONE (10:12)
[2019-12-16] MEDS ORDERED: LIDOCAINE 2% 5 ML VIAL ONE (10:12)
[2019-12-16] MEDS ORDERED: PHENYLEPHRINE DRIP 20 MG/250 ML PREMIX IV ONE (10:12)
[2019-12-16] MEDS ORDERED: fentaNYL 100 MCG/2 ML VIAL ONE (10:12)
[2019-12-16] MEDS ORDERED: SODIUM CHLORIDE 0.9% 1,000 ML IV ONE (10:13)
[2019-12-16] MEDS ORDERED: PHENYLEPHRINE 1 MG/10 ML SYRINGE IV ONE (10:13)
[2019-12-16] MEDS ORDERED: ROCURONIUM 100 MG/10 ML VIAL IV ONE (10:13)
[2019-12-16] MEDS: INSULIN REGULAR 100 UNIT/ML SUBCUT SCH ×4 (11:03→22:10)
[2019-12-16] MEDS: DILTIAZEM 60 MG TABLET PO SCH ×2 (11:03→22:10)
[2019-12-16] MEDS: SEVELAMER CARBONATE 800 MG TABLET PO SCH ×3 (11:03→18:06)
[2019-12-16] MEDS: LIDOCAINE 5% PATCH TRANSDERM SCH (11:04)
[2019-12-16] MEDS: PANTOPRAZOLE 40 MG TABLET PO SCH (11:04)
[2019-12-16] MEDS: DOCUSATE SODIUM 100 MG CAPSULE PO SCH ×2 (11:04→22:10)
[2019-12-16] MEDS: BISOPROLOL 5 MG TABLET PO SCH ×2 (11:05→22:10)
[2019-12-16] MEDS ORDERED: MEPERIDINE 25 MG/1 ML VIAL ONE (11:35)
[2019-12-16] MEDS ORDERED: ONDANSETRON 4 MG/2 ML VIAL ONE (11:35)
[2019-12-16] MEDS ORDERED: dilTIAZem Drip 125 MG/125 ML PREMIX IV ONE (11:51)
[2019-12-16] MEDS: dilTIAZem Drip 125 MG/125 ML PREMIX IV SCH ×2 (11:53→23:46)
[2019-12-16] MEDS ORDERED: MEPERIDINE 25 MG/1 ML VIAL IV PRN (12:05)
[2019-12-16] MEDS ORDERED: ONDANSETRON 4 MG/2 ML VIAL IV PRN (12:05)
[2019-12-16] MEDS: HYDROmorphone 2 MG/1 ML VIAL IV PRN (13:49)
[2019-12-16 13:55] LABS: ABG Base Excess 0.8 MMOL/L (-2.5-2.5); ABG HCO3 25.2 MMOL/L (20-26); ABG PCO2 38.7 MM HG (35-48); ABG PH 7.421 (7.35-7.45); ABG TCO2 22.8 MMOL/L (23-27)
[2019-12-16 18:17] LABS: ABG Base Excess -1.5 MMOL/L (-2.5-2.5); ABG HCO3 25.3 MMOL/L (20-26); ABG Oxygen Saturation 98.3 % (95-100); ABG PH 7.305 (7.35-7.45); ABG PO2 121.2 MM HG (80-95); ABG TCO2 26.9 MMOL/L (23-27)
[2019-12-16 21:52] LABS: ABG Base Excess -0.8 MMOL/L (-2.5-2.5); ABG HCO3 23.6 MMOL/L (20-26); ABG Oxygen Saturation 91.2 % (95-100); ABG PCO2 48.3 MM HG (35-48); ABG PH 7.331 (7.35-7.45); ABG PO2 60.7 MM HG (80-95); ABG TCO2 23.2 MMOL/L (23-27)
[2019-12-17] MEDS: cefTRIAXone 500 MG in SYRINGE 1 EACH IV SCH ×2 (00:20→23:00)
[2019-12-17 04:02] LABS: ABG Base Excess -0.4 MMOL/L (-2.5-2.5); ABG HCO3 23.9 MMOL/L (20-26); ABG Oxygen Saturation 90.4 % (95-100); ABG PCO2 46.8 MM HG (35-48); ABG PH 7.345 (7.35-7.45); ABG PO2 58.2 MM HG (80-95); ABG TCO2 23.3 MMOL/L (23-27)
[2019-12-17 04:12] LABS: Basophils % 0.2 % (0.0-0.8); Eosinophils % 0.2 % (0.00-10.9); Hematocrit 30.6 VOL% (35.7-47.0); Hemoglobin 10.6 GM/DL (12.0-16.0); Immature Granulocytes % 0.7 %; Immature Granulocytes Absolute 0.13 #; Lymphocytes # 0.9 10*3/uL (1.4-4.0); Lymphocytes % 5.3 % (21.3-54.2); Mean Corpuscular HGB Conc 34.6 GM/DL (32-36); Mean Corpuscular Volume 97.1 FL (87-102); Mean Platelet Volume 10.1 FL (9.6-12.0); Monocytes % 10.7 % (1.7-12.7); NRBC # 4.41 10*3/uL; Neutrophils % 82.9 % (38.7-73.9); Platelet Count 282 T/CUMM (130-400); Red Blood Count 3.15 MC/CUMM (3.8-5.5); Red Cell Distribution Width 20.9 % (9.3-17.3); White Blood Count 17.5 T/CUMM (4-12)
[2019-12-17 04:17] LABS: Calcium 8.7 MG/DL (8.5-10.1); Osmolality,Calculated 270.2 MOS/KG (273-304)
[2019-12-17 04:36] LABS: Hypochromasia 1+; Lymphocytes 3 % (20-55); Nucleated Red Blood Cells 48 (0-5); Pappenheimer Bodies Slight; Platelet Estimate Adequate; Segmented Neutrophils 90 % (50-85); Target Cells Few; Total Cells Counted 100
[2019-12-17 04:37] LABS: Macrocytosis Slight; Polychromasia Slight
[2019-12-17] MEDS: INSULIN REGULAR 100 UNIT/ML SUBCUT SCH ×4 (08:17→20:48)
[2019-12-17] MEDS: DILTIAZEM 60 MG TABLET PO SCH ×2 (08:48→21:07)
[2019-12-17] MEDS: DOCUSATE SODIUM 100 MG CAPSULE PO SCH ×2 (08:48→21:07)
[2019-12-17] MEDS: SEVELAMER CARBONATE 800 MG TABLET PO SCH ×3 (08:48→17:00)
[2019-12-17] MEDS: BISOPROLOL 5 MG TABLET PO SCH ×2 (08:48→21:07)
[2019-12-17] MEDS: PANTOPRAZOLE 40 MG TABLET PO SCH (08:49)
[2019-12-17] MEDS: LIDOCAINE 5% PATCH TRANSDERM SCH (08:49)
[2019-12-17] MEDS: dilTIAZem Drip 125 MG/125 ML PREMIX IV SCH ×2 (12:26→16:30)
[2019-12-17] MEDS: HYDROmorphone 2 MG/1 ML VIAL IV PRN (22:47)
[2019-12-17] MEDS: METOPROLOL TARTRATE 5 MG/5 ML VIAL IV SCH (23:00)
[2019-12-18 04:33] LABS: Basophils % 0.2 % (0.0-0.8); Eosinophils # 0.1 10*3/uL (0.0-0.87); Eosinophils % 0.4 % (0.00-10.9); Hematocrit 28.9 VOL% (35.7-47.0); Immature Granulocytes % 0.7 %; Immature Granulocytes Absolute 0.14 #; Lymphocytes # 0.4 10*3/uL (1.4-4.0); Lymphocytes % 2.1 % (21.3-54.2); Mean Corpuscular HGB Conc 34.6 GM/DL (32-36); Mean Corpuscular Volume 97.3 FL (87-102); Mean Platelet Volume 10.6 FL (9.6-12.0); Monocytes % 10.6 % (1.7-12.7); NRBC # 7.49 10*3/uL; Platelet Count 244 T/CUMM (130-400); Red Blood Count 2.97 MC/CUMM (3.8-5.5); Red Cell Distribution Width 21.1 % (9.3-17.3); White Blood Count 19.2 T/CUMM (4-12)
[2019-12-18 04:51] LABS: Eosinophils 1 % (0-10); Lymphocytes 3 % (20-55); Nucleated Red Blood Cells 60 (0-5); Segmented Neutrophils 89 % (50-85); Total Cells Counted 100
[2019-12-18 04:52] LABS: Platelet Estimate Adequate
[2019-12-18 04:53] LABS: Hypochromasia 1+; Macrocytosis Slight; Pappenheimer Bodies Few; Polychromasia Slight; Target Cells Few
[2019-12-18 04:58] LABS: Calcium 8.6 MG/DL (8.5-10.1); Osmolality,Calculated 265.5 MOS/KG (273-304)
[2019-12-18] MEDS: METOPROLOL TARTRATE 5 MG/5 ML VIAL IV SCH ×3 (05:45→17:55)
[2019-12-18] MEDS: INSULIN REGULAR 100 UNIT/ML SUBCUT SCH ×4 (07:58→21:07)
[2019-12-18] MEDS: DOCUSATE SODIUM 100 MG CAPSULE PO SCH ×2 (08:51→21:03)
[2019-12-18] MEDS: SEVELAMER CARBONATE 800 MG TABLET PO SCH ×3 (08:51→17:55)
[2019-12-18] MEDS: LIDOCAINE 5% PATCH TRANSDERM SCH (08:51)
[2019-12-18] MEDS: PANTOPRAZOLE 40 MG TABLET PO SCH (08:51)
[2019-12-18] MEDS: BISOPROLOL 5 MG TABLET PO SCH ×2 (08:51→21:03)
[2019-12-18] MEDS: DILTIAZEM 60 MG TABLET PO SCH ×4 (08:52→21:02)
[2019-12-18] MEDS: dilTIAZem Drip 125 MG/125 ML PREMIX IV SCH (12:04)
[2019-12-19] MEDS: METOPROLOL TARTRATE 5 MG/5 ML VIAL IV SCH ×4 (00:16→16:56)
[2019-12-19] MEDS: cefTRIAXone 500 MG in SYRINGE 1 EACH IV SCH (00:21)
[2019-12-19 09:21] LABS: Basophils % 0.2 % (0.0-0.8); Eosinophils # 0.3 10*3/uL (0.0-0.87); Eosinophils % 1.6 % (0.00-10.9); Hematocrit 25.9 VOL% (35.7-47.0); Hemoglobin 9.4 GM/DL (12.0-16.0); Immature Granulocytes % 1.6 %; Immature Granulocytes Absolute 0.28 #; Mean Corpuscular HGB Conc 36.3 GM/DL (32-36); Mean Corpuscular Volume 95.6 FL (87-102); Mean Platelet Volume 10.8 FL (9.6-12.0); Monocytes % 7.1 % (1.7-12.7); Neutrophils % 89.5 % (38.7-73.9); Platelet Count 195 T/CUMM (130-400); Red Blood Count 2.71 MC/CUMM (3.8-5.5); White Blood Count 17.5 T/CUMM (4-12)
[2019-12-19 09:35] LABS: Calcium 8.2 MG/DL (8.5-10.1); Osmolality,Calculated 263.7 MOS/KG (273-304)
[2019-12-19 09:56] LABS: Hypochromasia 1+; Lymphocytes 5 % (20-55); Macrocytosis Slight; Nucleated Red Blood Cells 56 (0-5); Ovalocytes Slight; Pappenheimer Bodies Few; Platelet Estimate Adequate; Polychromasia Slight; Segmented Neutrophils 93 % (50-85); Target Cells Few; Total Cells Counted 100
[2019-12-19] MEDS: INSULIN REGULAR 100 UNIT/ML SUBCUT SCH ×4 (10:05→21:18)
[2019-12-19] MEDS: DILTIAZEM 60 MG TABLET PO SCH ×4 (10:06→21:19)
[2019-12-19] MEDS: SEVELAMER CARBONATE 800 MG TABLET PO SCH ×3 (10:06→17:00)
[2019-12-19] MEDS: dilTIAZem Drip 125 MG/125 ML PREMIX IV SCH (11:53)
[2019-12-19] MEDS: LIDOCAINE 5% PATCH TRANSDERM SCH (13:24)
[2019-12-19] MEDS: PANTOPRAZOLE 40 MG TABLET PO SCH (13:31)
[2019-12-19] MEDS: BISOPROLOL 5 MG TABLET PO SCH ×2 (13:31→21:19)
[2019-12-19] MEDS: traMADol 50 MG TABLET PO PRN ×2 (13:31→22:00)
[2019-12-19] MEDS: DOCUSATE SODIUM 100 MG CAPSULE PO SCH ×2 (13:31→21:21)
[2019-12-20] MEDS: METOPROLOL TARTRATE 5 MG/5 ML VIAL IV SCH ×3 (00:33→14:43)
[2019-12-20] MEDS: cefTRIAXone 500 MG in SYRINGE 1 EACH IV SCH ×2 (01:32→22:42)
[2019-12-20 07:45] LABS: Calcium 8.2 MG/DL (8.5-10.1)
[2019-12-20 07:46] LABS: Osmolality,Calculated 262.8 MOS/KG (273-304)
[2019-12-20] MEDS: INSULIN REGULAR 100 UNIT/ML SUBCUT SCH ×4 (08:00→20:42)
[2019-12-20] MEDS: SEVELAMER CARBONATE 800 MG TABLET PO SCH ×3 (10:02→17:29)
[2019-12-20] MEDS: LIDOCAINE 5% PATCH TRANSDERM SCH (10:03)
[2019-12-20] MEDS: DOCUSATE SODIUM 100 MG CAPSULE PO SCH ×2 (10:03→20:42)
[2019-12-20] MEDS: PANTOPRAZOLE 40 MG TABLET PO SCH (10:03)
[2019-12-20] MEDS: BISOPROLOL 5 MG TABLET PO SCH ×2 (10:33→20:11)
[2019-12-20] MEDS: DILTIAZEM 60 MG TABLET PO SCH ×3 (10:33→20:11)
[2019-12-20] MEDS: dilTIAZem Drip 125 MG/125 ML PREMIX IV SCH (12:02)
[2019-12-20] MEDS: traMADol 50 MG TABLET PO PRN (22:43)
[2019-12-21] MEDS: INSULIN REGULAR 100 UNIT/ML SUBCUT SCH ×4 (09:04→20:26)
[2019-12-21] MEDS: PANTOPRAZOLE 40 MG TABLET PO SCH (09:20)
[2019-12-21] MEDS: DOCUSATE SODIUM 100 MG CAPSULE PO SCH ×2 (09:20→20:26)
[2019-12-21] MEDS: SEVELAMER CARBONATE 800 MG TABLET PO SCH ×3 (09:20→17:09)
[2019-12-21] MEDS: BISOPROLOL 5 MG TABLET PO SCH ×2 (09:20→20:27)
[2019-12-21] MEDS: DILTIAZEM 60 MG TABLET PO SCH ×3 (09:20→20:26)
[2019-12-21] MEDS: LIDOCAINE 5% PATCH TRANSDERM SCH (09:21)
[2019-12-21 09:51] LABS: Basophils % 0.3 % (0.0-0.8); Eosinophils # 0.3 10*3/uL (0.0-0.87); Eosinophils % 2.4 % (0.00-10.9); Hematocrit 28.3 VOL% (35.7-47.0); Hemoglobin 9.9 GM/DL (12.0-16.0); Immature Granulocytes % 0.9 %; Immature Granulocytes Absolute 0.12 #; Lymphocytes % 7.4 % (21.3-54.2); Mean Platelet Volume 10.6 FL (9.6-12.0); Monocytes % 11.2 % (1.7-12.7); NRBC # 2.39 10*3/uL; Neutrophils % 77.8 % (38.7-73.9); Platelet Count 176 T/CUMM (130-400); Red Blood Count 2.86 MC/CUMM (3.8-5.5); White Blood Count 13.3 T/CUMM (4-12)
[2019-12-21 10:09] LABS: Eosinophils 1 % (0-10); Lymphocytes 6 % (20-55); Nucleated Red Blood Cells 27 (0-5); Segmented Neutrophils 81 % (50-85); Total Cells Counted 100
[2019-12-21 10:10] LABS: Hypochromasia 1+; Macrocytosis 1+; Target Cells Few
[2019-12-21 10:11] LABS: Pappenheimer Bodies Slight; Platelet Estimate Adequate; Polychromasia Slight
[2019-12-21 10:17] LABS: Calcium 8.8 MG/DL (8.5-10.1); Osmolality,Calculated 272.5 MOS/KG (273-304)
[2019-12-21] MEDS: dilTIAZem Drip 125 MG/125 ML PREMIX IV SCH (13:19)
[2019-12-21] MEDS: cefTRIAXone 500 MG in SYRINGE 1 EACH IV SCH (23:39)
[2019-12-22] MEDS: INSULIN REGULAR 100 UNIT/ML SUBCUT SCH ×2 (07:56→12:20)
[2019-12-22] MEDS ORDERED: ASPIRIN EC 81 MG TABLET PO SCH (09:00)
[2019-12-22] MEDS: SEVELAMER CARBONATE 800 MG TABLET PO SCH ×2 (10:57→12:37)
[2019-12-22] MEDS: dilTIAZem Drip 125 MG/125 ML PREMIX IV SCH (11:10)
[2019-12-22] MEDS ORDERED: DILTIAZEM CD 180 MG CAPSULE PO SCH (11:30)
[2019-12-22] MEDS: DILTIAZEM 60 MG TABLET PO SCH (12:19)
[2019-12-22 12:34] VITALS: BP 117/99
[2019-12-22] MEDS: LIDOCAINE 5% PATCH TRANSDERM SCH (12:35)
[2019-12-22] MEDS: BISOPROLOL 5 MG TABLET PO SCH (12:37)
[2019-12-22] MEDS: PANTOPRAZOLE 40 MG TABLET PO SCH (12:37)
[2019-12-22] MEDS: DOCUSATE SODIUM 100 MG CAPSULE PO SCH (12:37)
[2019-12-22] MEDS ORDERED: HEPARIN LOCK FLUSH 500 UNIT/5 ML SYRINGE IV ONE (13:12)
[2019-12-22] MEDS ORDERED: ALTEPLASE 2 MG VIAL ONE (13:19)
[2019-12-22] MEDS ORDERED: ALTEPLASE 2 MG VIAL IV ONE (13:25)
== END 2019-12-22 15:08 | disposition home health service (06) | DRG 656 ==
LOC: N.TELEN 12-15 08:19 → N.CVR 12-16 12:31 → N.TELEN 12-18 14:59
PROVIDERS: ADMIT Internal Medicine; ATTEND Internal Medicine